=== PATIENT | male | born 1950 | race Caucasian/White ===

== ENCOUNTER 2016-04-16 09:47 | Emergency (ER) | payer OTHER, MEDICARE ==
[~2016-04-16 09:47] MED LIST: ADVAIR DISKUS 21 DSK INH; ALBUTEROL 3 ML3 ML INH; ALBUTEROL2.5 MG/3 M INH/SOL; ALENDRONATE SOD70 M2 PO; ALENDRONATE SOD70 MG PO; AQUAPHOR1 OIN TOP; ATIVAN1 MG PO; ATORVASTATIN CA80 M1 PO; AUGMENTIN 875-1 EACH PO; AZITHROMYCIN250 MG PO; AZITHROMYCIN500 MG PO; BACITRACIN ZIN120 GM TOP; BENADRYL 50 MG50 MG PO; BIAXIN FILMTAB500 MG PO; Benadryl TOP; CEFUROXIME500 MG PO; CEPHALEXIN500 M3 PO; CETIRIZINE HCL10 M2 PO; CETIRIZINE HCL10 MG PO; CHILDREN'S ASPI81 M1 PO; CLARITIN10 MG PO; CLEOCIN HCL150 MG PO; CLINDAMYCIN PHOSPH1% TOP; CLOTRIMAZOLE-745 GM TOP; COLACE100 MG PO; CORTISONE28 GM TOP; DELTASONE20 MG PO; DICLOFENAC POTA50 M1 PO; DIPHENHYDRAMINE25 M4 PO; DOLOPHINE10 MG PO; DOXEPIN HCL25 MG PO; DOXYCYCLINE HY100 M2 PO; ELIMITE5% EXT; FLU VACCINE 0.0.5 ML IM; FUROSEMIDE20 M1 PO; HYDROXYZINE HCL10 M1 PO; HYDROXYZINE HCL25 M2 PO; HYDROXYZINE HCL25 MG PO; HYDROXYZINE HCL50 M1 PO; HYDROXYZINE50 MG PO; JANUVIA 100MG100 MG PO; LASIX40 MG PO; LEVAQUIN500 MG PO; LIDODERM1 EACH TOP; LISINOPRIL20 M1 PO; LUBRIDERM DAIL177 ML TOP; MEDROL DOSEPAK1 PAC PO; MEDROL4 M2 PO; MEROPENEM1 GM IV; METFORMIN ER500 MG PO; METFORMIN HCL500 M3 PO; MIRALAX17 GM PO; MOMETASONE0.05 MG/Ac NASB; OXYCONTIN20 MG PO; PERCOCET 5-3251 EACH PO; PERMETHRIN60 GM TOP; PNEUMOVAX 0.5M0.5 ML IM; PREDNICOT20 MG PO; PREDNISONE 10MG10 M1 PO; PREDNISONE 10MG10 MG PO; PREDNISONE 20MG20 MG PO; PREDNISONE10 MG PO; PRILOSEC 20MG C20 MG PO; PRILOSEC OTC20 M1 PO; PROVENTIL HFA6.7 GM INH; ROXICODONE15 M1 PO; ROXICODONE30 M1 PO; ROXICODONE5 MG PO; SOOTHE TOP; TRIAMCINOL0.1 %/453 TD; TRIAMCINOL0.1 %/453 TOP; VALISONE TOP; VENTOLIN HFA18 GM INH; VIBRAMYCIN 100100 MG PO; VITAMIN E800 IU PO; XANAX0.5 M1 PO; XARELTO15 MG PO; XARELTO20 MG PO; ZITHROMAX 500M500 MG PO; ZOFRAN4 M1 SL; [UNRECOGNIZED DRUG - OTHER] TOP
--- NOTE | 2016-04-16 09:55 | ED GENERAL ADULT ---
History of Present Illness General Chief Complaint: General Adult Stated Complaint: ?MED RX Source: patient, old records, EMS Exam Limitations: no limitations Vital Signs & Intake/Output Vital Signs & Intake/Output Vital Signs Date Time Temp Pulse Resp B/P Pulse O2 O2 Flow FiO2 Ox Delivery Rate 04/16 1345 98.6 85 18 136/85 98 Room Air 04/16 1145 92 18 140/69 97 Room Air 04/16 1045 96 04/16 0947 96.7 97 18 143/67 99 Room Air Allergies Coded Allergies: ciprofloxacin (Severe, ANAPHYLAXIS 02/28/16) budesonide (Intermediate, SHORTNESS OF BREATH 02/28/16) formoterol (Intermediate, SHORTNESS OF BREATH 02/28/16) tiotropium (From SPIRIVA WITH HANDIHALER) (Intermediate, SHORTNESS OF BREATH 10/06) gabapentin (Mild, ITCHY 02/28/16) zolpidem (Intermediate, HALLUCINATIONS 02/28/16) Reconcile Medications Albuterol Sulfate (Ventolin Hfa) 90 MCG HFA.AER.AD ASTHMA (Reported) LAST TAKEN 02/22/16 AT 12PM Albuterol Sulfate 3 ML NEB 1 INH 4 TIMES/DAY PRN COPD (Reported) Alendronate Sodium 70 MG TABLET 1 TAB PO QW OSTEOPOROSIS (Reported) in the morning, at least 30 minutes before the first food, beverage, or medication of the day Aspirin (Children's Aspirin) 81 MG TAB.CHEW 1 TAB PO DAILY HEART HEALTH ( Reported) LAST TAKEN 02/22/16 AT 10 AM Atorvastatin Calcium 80 MG TABLET 1 TAB PO DAILY CHOLESTEROL (Reported) Diclofenac Potassium 50 MG TABLET 1 TAB PO TID PRN PAIN DOXEPIN HCL (Doxepin HCl) 25 MG CAP 1 CAP PO QPM SLEEP HELP (Reported) Emollient Combination No.92 (Lubriderm Daily Moisture) 177 ML LOTION 1 LEYLA TOP TID PRN DRY SKIN Furosemide 20 MG TABLET 20 MG PO DAILY diuretic Hydrocodone/Acetaminophen (Vicodin 5-300 MG Tablet) 5 MG-300 MG TABLET 1 TAB PO Q4-6 PRN PAIN Hydroxyzine HCl 25 MG TABLET 1 TAB PO Q6 PRN Pruritis Hydroxyzine HCl 10 MG TABLET 10 MG PO TID ITCHING Lidocaine HCl (Lidoderm Patch) 5 % PAT 1 PAT TOP DAILY PAIN CONTROL (Reported ) may wear up to 12 hours Lisinopril 20 MG TABLET 2 TAB PO DAILY HIGH BLOOD PRESSURE (Reported) Loratadine (Claritin) 10 MG TAB 1 TAB PO MORNING ALLERGIES (Reported) Lorazepam (Ativan) 1 MG TAB 1 TAB PO BID PRN TINGLING/TREMORS/INSOMNIA EIGHT TABS...[id number] Metformin Hydrochloride (Metformin HCl) 500 MG TAB 1 TAB PO BID DIABETES ( Reported) Omeprazole (Prilosec) 40 MG ECC 1 CAP PO DAILY ACID REFLUX (Reported) Oxycodone HCl (Roxicodone) 15 MG TABLET 1 TAB PO BID Back Pain Triage Note: PT BROUGHT IN BY AMBULANCE FOR HAND AND FEET TINGLING S/P TAKING GABAPENTIN AT 4A. PT ALSO C/O OF LUQ PAIN THAT IS WORSE WITH PALPATION. Triage Nurses Notes Reviewed? yes Onset: Gradual Duration: hour(s): (4) Timing: recent history Injury Environment: home Severity: moderate Severity Numbers: 6 HPI: Patient is a 65-year-old male with history of severe COPD presenting to the emergency department with chief complaint of increased pain in the arms, legs as well as left-sided abdominal pain, nausea, racing heartbeat that started after he to 2 tabs of 300 mg gabapentin. Patient reports that this is the first time he took the gabapentin. He was feeling fine prior to gabapentin. Denies any shortness of breath. Denies any increase in wheezing or coughing. Denies any fevers or chills. Denies taking anything prior travel help with symptoms. Denies any urinary symptoms. Denies any sensation of closing in his throat. (YANNICK PECK) Past History Travel History Traveled to [place] past 21 day No Medical History Any Pertinent Medical History? 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 Relation not specified for: FH: prostate cancer Hx Contributory? No (YANNICK PECK) Review of Systems Review of Systems Constitutional: Reports: no symptoms. Comments Review of systems: See HPI, All other systems negative. Constitutional, no chills fever or weight loss HEENT: No visual changes no sore throat no congestion Cardiovascular: No chest pain , orthopnea or ankle swelling Skin, no jaundice no rashes Respiratory: No dyspnea cough sputum or hemoptysis GI: no vomiting, no diarrhea : No dysuria No hematuria Muscle skeletal: no back pain, no neck pain, Neurologic: No numbness no confusion, no headache Psych: No stress anxiety or depression,. Heme/endocrine: No bruising no bleeding no polyuria or polydipsia Immunology: No splenectomy or history of AIDS (YANNICK PECK) Physical Exam Physical Exam General Appearance: well developed/nourished, no apparent distress, alert, awake , comfortable Comments: Well-developed well-nourished person in no acute distress HEENT: Pupils equally round and reactive to light and accommodation. Nose is atraumatic. External auditory canal and Tympanic membranes clear. Pharynx normal. No swelling or edema. No oral lesions. Neck: Supple, no lymphadenopathy, normal range of motion without pain or tenderness Back: Nontender Cardiovascular: Regular rate and rhythms no murmurs rubs or gallops, normal JVP Respiratory: Chest nontender. No respiratory distress.to auscultati and diffuse wheezing on bilaterally Abdomen: Soft, obese, tender to palpation in the left upper quadrant, no rebound or guarding, nondistended, no appreciable organomegaly. Normal bowel sounds. No ascites Extremity: No edema, no calf tenderness to palpation, normal and equal pulses. Neuro: Alert oriented x3 Skin: Maculopapular erythematous rash that is blanchable and noted on the upper extremities bilaterally. Nontender. Psych: Mood and affect is normal, memory and judgment is normal. Core Measures ACS in differential dx? No CVA/TIA Diagnosis: No Severe Sepsis Present: No Septic Shock Present: No (YANNICK PECK) Progress Differential Diagnoses I considered the following diagnoses in my evaluation of the patient: COPD exacerbation, medication reaction, allergic reaction, anxiety Plan of Care: Orders Procedure Date/time Status Heart Healthy Diet 04/16 D Active LACTIC ACID 04/16 1253 Complete MISTAKE 04/16 952 Active Telemetry/Clinical Quality Analyst 04/16 952 Active URINALYSIS 04/16 952 Active TROPONIN LEVEL 04/16 952 Complete LACTIC ACID 04/16 952 Complete COMPREHENSIVE METABOLIC PANEL 04/16 952 Complete CBC WITHOUT DIFFERENTIAL 04/16 952 Complete EKG 04/16 952 Active Laboratory Tests 04/16/16 1242: Lactic Acid 3.2 H 04/16/16 1013: Anion Gap 8, Estimated GFR > 60, BUN/Creatinine Ratio 10.0, Glucose 118 H, Lactic Acid 2.2 H, Calcium 9.5, Total Bilirubin 0.5, AST 48, ALT 62, Alkaline Phosphatase 117, Troponin I < 0.01, Total Protein 7.2, Albumin 3.9, Globulin 3.3 , Albumin/Globulin Ratio 1.2, CBC w Diff NO MAN DIFF REQ, RBC 3.59 L, MCV 85.2, MCH 27.8, RDW 14.0, MPV 8.8, Gran % 70.2, Lymphocytes % 18.6 L, Monocytes % 7.4 , Eosinophils % 3.3, Basophils % 0.5, Absolute Granulocytes 4.5, Absolute Lymphocytes 1.2, Absolute Monocytes 0.5, Absolute Eosinophils 0.2, Absolute Basophils 0, PUBS MCHC 32.6 L Diagnostic Imaging: Viewed by Me: Radiology Read. Discussed w/RAD: Radiology Read. CXR Impression: PATIENT: KEAGAN CRISOSTOMO PRESENT AGE: 65 PATIENT ACCOUNT NO: [id number] : 48 LOCATION: [facility] ORDERING PHYSICIAN: YANNICK MUSE SERVICE DATE: 04/16/16 EXAM TYPE: RAD - XRY-PORTABLE CHEST XRAY EXAMINATION: XR PORTABLE CHEST CLINICAL INFORMATION: Cough. Wheezing. COMPARISON: 02/28/16. CT scan of 02/20/16. TECHNIQUE: Portable view of the chest was obtained. FINDINGS: There is stable elevation of the right hemidiaphragm. There is stable mild nonspecific interstitial prominence. No focal consolidation, pulmonary edema or other acute abnormality is seen. The heart and mediastinal structures are unremarkable. IMPRESSION: No acute abnormality. Initial ED EKG: NSR Comments: 04/16/2016 10:03:06 AM and I will patient in no acute distress, cannot exclude allergic reaction to new medication. Patient was medicated with prednisone, Benadryl and Pepcid. Patient noted to stress as he is asking to watch TV and was sleeping when nurses went in to medicate patient. Patient does have diffuse wheezing on exam which is baseline for this patient. We'll obtain chest x-ray. Patient will be on the monitor. EKG is unchanged. Patient feeling much better after medication. Vital stable. Lactic acid did go up, likely related to metformin. Patient eating without difficulty. He'll follow up with PCP or return for worsening symptoms here patient nontoxic. (YANNICK PCEK) Departure Departure Time of Disposition: 1329 Disposition: HOME OR SELF CARE Condition: Stable Clinical Impression Primary Impression: Neuropathy Secondary Impressions: Medication reaction Referrals: BLAYNE NEWTON,RUDOLPH Marquez (PCP/Family) Additional Instructions: Follow-up with your primary care physician: Inflated. Take Vicodin as prescribed for pain. Return for worsening symptoms or concerns. Departure Forms: Customer Survey General Discharge Information Prescriptions: Current Visit Scripts Hydrocodone/Acetaminophen (Vicodin 5-300 MG Tablet) 1 TAB PO Q4-6 PRN PAIN #10 TAB (YANNICK PECK) PA/SENIOR CORPORATE ACCOUNTANT Co-Sign Statement Statement: ED Attending supervision documentation- x I saw and evaluated the patient. I have also reviewed all the pertinent lab results and diagnostic results. I agree with the findings and the plan of care as documented in the PA's/SENIOR CORPORATE ACCOUNTANT's documentation. [] I have reviewed the ED Record and agree with the PA's/SENIOR CORPORATE ACCOUNTANT's documentation. [] Additions or exceptions (if any) to the PAs/SENIOR CORPORATE ACCOUNTANT's note and plan are summarized below: [] (KEHINDE NEWTON,DENISE) Critical Care Note Critical Care Note Critical Care Time: non-applicable (YANNICK PECK)
--- NOTE | 2016-04-16 10:24 | RADIOLOGY REPORT ---
EXAMINATION: XR PORTABLE CHEST CLINICAL INFORMATION: Cough. Wheezing. COMPARISON: 02/28/16. CT scan of 02/20/16. TECHNIQUE: Portable view of the chest was obtained. FINDINGS: There is stable elevation of the right hemidiaphragm. There is stable mild nonspecific interstitial prominence. No focal consolidation, pulmonary edema or other acute abnormality is seen. The heart and mediastinal structures are unremarkable. IMPRESSION: No acute abnormality.
[2016-04-16 10:31] LABS: ABSOLUTE BASOPHIL COUNT 0 /CUMM (0.0-0.2); ABSOLUTE EOSINOPHIL COUNT 0.2 /CUMM (0.0-0.7); ABSOLUTE MONOCYTE COUNT 0.5 /CUMM (0.10-0.60); BASOPHIL % 0.5 % (0.0-2.0); EOSINOPHIL % 3.3 % (0-5); WHITE BLOOD CELL COUNT 6.4 /CUMM (4.8-10.8)
[2016-04-16 10:43] LABS: ABSOLUTE GRANULOCYTE CT 4.5 /CUMM (1.4-6.5); ABSOLUTE LYMPH COUNT 1.2 /CUMM (1.2-3.4); GRANULOCYTE % 70.2 % (42.2-75.2); HEMATOCRIT 30.6 % (42-52); MEAN CORPUSCULAR HGB 27.8 PG (27.0-31.0); MEAN CORPUSCULAR HGB CONC 32.6 G/DL (33.0-37.0); MEAN CORPUSCULAR VOLUME 85.2 FL (80.0-94.0); MEAN PLATELET VOLUME 8.8 FL (7.4-10.4); RED BLOOD CELL CT 3.59 /CUMM (4.70-6.10)
[2016-04-16 11:03] LABS: PLATELET COUNT 314 /CUMM (130-400)
[2016-04-16] MEDS ORDERED: VICODIN 5-3001 EACH PO (13:32)
[2016-04-16 13:45] VITALS: BP 136/85
== END 2016-04-16 13:45 ==
LOC: ERH 09:47
PROVIDERS: Physician Assistant
DX: G62.9 Polyneuropathy, unspecified (principal); T50.905A Adverse effect of unspecified drugs, medicaments and biological substances, initial encounter; R00.0 Tachycardia, unspecified; J44.9 Chronic obstructive pulmonary disease, unspecified; I10 Essential (primary) hypertension; Z87.891 Personal history of nicotine dependence
CPT/HCPCS: 1263; 93005; 93010; J7040

== ENCOUNTER 2016-05-28 01:01 | Emergency (ER) | payer OTHER, MEDICARE ==
[~2016-05-28] VITALS: Ht 182.9 cm; Wt 90.7 kg
[~2016-05-28 01:01] MED LIST changes: +VICODIN 5-3001 EACH PO
--- NOTE | 2016-05-28 01:10 | ED HAND/WRIST INJURY COMPLAINT ---
History of Present Illness General Chief Complaint: Dyspnea (COPD, CHF, Other) Stated Complaint: BIBA DIFF BREATHING Source: patient, old records, EMS Exam Limitations: no limitations Vital Signs & Intake/Output Vital Signs & Intake/Output Vital Signs Date Time Temp Pulse Resp B/P Pulse O2 O2 Flow FiO2 Ox Delivery Rate 05/28 118 98.1 88 20 118/57 95 Room Air 05/28 117 97 Room Air Allergies Coded Allergies: ciprofloxacin (Severe, ANAPHYLAXIS 02/28/16) budesonide (Intermediate, SHORTNESS OF BREATH 02/28/16) formoterol (Intermediate, SHORTNESS OF BREATH 02/28/16) tiotropium (From SPIRIVA WITH HANDIHALER) (Intermediate, SHORTNESS OF BREATH 10/06) gabapentin (Mild, ITCHY 02/28/16) zolpidem (Intermediate, HALLUCINATIONS 02/28/16) Reconcile Medications Albuterol Sulfate (Ventolin Hfa) 90 MCG HFA.AER.AD ASTHMA (Reported) LAST TAKEN 02/22/16 AT 12PM Albuterol Sulfate 3 ML NEB 1 INH 4 TIMES/DAY PRN COPD (Reported) Alendronate Sodium 70 MG TABLET 1 TAB PO QW OSTEOPOROSIS (Reported) in the morning, at least 30 minutes before the first food, beverage, or medication of the day Aspirin (Children's Aspirin) 81 MG TAB.CHEW 1 TAB PO DAILY HEART HEALTH ( Reported) LAST TAKEN 02/22/16 AT 10 AM Atorvastatin Calcium 80 MG TABLET 1 TAB PO DAILY CHOLESTEROL (Reported) Diclofenac Potassium 50 MG TABLET 1 TAB PO TID PRN PAIN DOXEPIN HCL (Doxepin HCl) 25 MG CAP 1 CAP PO QPM SLEEP HELP (Reported) Emollient Combination No.92 (Lubriderm Daily Moisture) 177 ML LOTION 1 LEYLA TOP TID PRN DRY SKIN Furosemide 20 MG TABLET 20 MG PO DAILY diuretic Hydrocodone/Acetaminophen (Vicodin 5-300 MG Tablet) 5 MG-300 MG TABLET 1 TAB PO Q4-6 PRN PAIN Hydroxyzine HCl 25 MG TABLET 1 TAB PO Q6 PRN Pruritis Hydroxyzine HCl 10 MG TABLET 10 MG PO TID ITCHING Lidocaine HCl (Lidoderm Patch) 5 % PAT 1 PAT TOP DAILY PAIN CONTROL (Reported ) may wear up to 12 hours Lisinopril 20 MG TABLET 2 TAB PO DAILY HIGH BLOOD PRESSURE (Reported) Loratadine (Claritin) 10 MG TAB 1 TAB PO MORNING ALLERGIES (Reported) Lorazepam (Ativan) 1 MG TAB 1 TAB PO BID PRN TINGLING/TREMORS/INSOMNIA EIGHT TABS...[id number] Metformin Hydrochloride (Metformin HCl) 500 MG TAB 1 TAB PO BID DIABETES ( Reported) Omeprazole (Prilosec) 40 MG ECC 1 CAP PO DAILY ACID REFLUX (Reported) Oxycodone HCl (Roxicodone) 15 MG TABLET 1 TAB PO BID Back Pain Tramadol HCl 50 MG TABLET 1 TAB PO Q6P PRN PAIN Triage Nurses Notes Reviewed? yes HPI: Patient noticed dust in his house and then he began having difficulty breathing. Patient called 911. While waiting for the ambulance to arrive he used one of his duonebs. Patient states that his breathing improved however he decided to use the ambulance to come in to the emergency room for evaluation of pain in his left hand. Patient states that his left hand has been throbbing for the past week. The pain is constant. There is no radiation. There are no aggravating or mitigating factors. Patient does not think he injured his hand and does not know why it hurts. Patient rates the pain as 10 on a can and it is unrelieved with Motrin. Past History Medical History Any Pertinent Medical History? see below for history Neurological: seizure EENT: allergies Cardiovascular: CHF, hypertension, PVD Respiratory: COPD, pulmonary embolism Gastrointestinal: GERD, GI BLEED cholelithiasis Hepatic: hepatitis C Renal: NONE Musculoskeletal: chronic back pain, disk herniation, fracture, osteomyelitis right foot Psychiatric: PTSD (s/p traumatic stress disorder) Endocrine: diabetes, diabetic neuropathy Blood Disorders: PE Cancer(s): NONE KITMAN/Reproductive: NONE History of MRSA: Yes History of VRE: No History of CDIFF: No Pneumonia Vaccine: 01/22/14 Influenza Vaccine: 08/23/15 Surgical History Surgical History: hernia repair-inguinal, right 1st-3rd toes resection Psychosocial History Who do you live with Spouse Services at Home None What is your primary language Danish Tobacco Use: Quit >30 days ago ETOH Use: occasional use Illicit Drug Use: marijuana Family History Family History, If Any: FATHER (father). Relation not specified for: FH: prostate cancer Hx Contributory? No Review of Systems Review of Systems Constitutional: Reports: no symptoms. EENTM: Reports: no symptoms. Respiratory: Reports: see HPI, short of breath. Cardiovascular: Reports: no symptoms. GI: Reports: no symptoms. Genitourinary: Reports: no symptoms. Musculoskeletal: Reports: see HPI (HAND PAIN). Skin: Reports: no symptoms. Neurological/Psychological: Reports: no symptoms. Hematologic/Endocrine: Reports: no symptoms. Immunologic/Allergic: Reports: no symptoms. All Other Systems: Reviewed and Negative Physical Exam Physical Exam General Appearance: well developed/nourished, mild distress Head: atraumatic Eyes: Bilateral: PERRL, EOMI. Ears, Nose, Throat: normal pharynx, normal ENT inspection, hearing grossly normal Neck: normal inspection, supple Cardiovascular/Respiratory: normal breath sounds, normal peripheral pulses, regular rate/rhythm, no respiratory distress Back: normal inspection Wrist Left: normal range of motion, normal inspection Wrist Right: normal range of motion, normal inspection Hand Left: swelling Hand Right: normal inspection, normal range of motion Neurologic/Tendon: normal sensation, normal motor functions, normal tendon functions Skin: intact, normal color, warm/dry Lymphatic: no anterior cervical hill Progress Differential Diagnosis: contusion, fracture, gout, sprain Plan of Care: Orders Procedure Date/time Status XRY-HAND, 3 View LEFT 05/28 0206 Active Diagnostic Imaging: Viewed by Me: Radiology Read. Discussed w/RAD: Radiology Read. Departure Departure Disposition: HOME OR SELF CARE Condition: Stable Clinical Impression Primary Impression: Hand pain, left Referrals: BLAYNE NEWTON,RUDOLPH Marquez (PCP/Family) Additional Instructions: RETURN IF SYMPTOMS WORSEN OR FOR ANY CONCERNS Departure Forms: Customer Survey General Discharge Information Prescriptions: Current Visit Scripts Tramadol HCl 1 TAB PO Q6P PRN PAIN #20 TAB
[2016-05-28] MEDS ORDERED: TRAMADOL HCL50 M1 PO (03:15)
--- NOTE | 2016-05-28 03:45 | RADIOLOGY REPORT ---
EXAMINATION: XR HAND, LEFT CLINICAL INFORMATION: Pain and swelling COMPARISON: None TECHNIQUE: AP, lateral, and oblique views of the left hand. FINDINGS: Osseous alignment is anatomic. No acute fracture is seen. There is contour deformity at the base of the fifth metacarpal, adjusting sequelae of healed old injury. No significant focal soft tissue abnormality is seen. IMPRESSION: No acute findings identified.
[2016-05-28 05:11] VITALS: BP 120/62
== END 2016-05-28 05:11 ==
LOC: ERH 01:01
DX: M79.642 Pain in left hand (principal)
CPT/HCPCS: 73130-LT

== ENCOUNTER 2016-06-04 16:21 | Emergency (ER) | payer OTHER, MEDICARE ==
[~2016-06-04] VITALS: Ht 182.9 cm; Wt 90.7 kg
[~2016-06-04 16:21] MED LIST changes: +TRAMADOL HCL50 M1 PO
--- NOTE | 2016-06-04 16:41 | ED CARDIAC/CP/PALPITATIONS ---
History of Present Illness General Chief Complaint: Chest Pain Stated Complaint: BIBA, C/P Source: patient, old records, EMS Exam Limitations: poor historian Vital Signs & Intake/Output Vital Signs & Intake/Output Vital Signs Date Time Temp Pulse Resp B/P Pulse O2 O2 Flow FiO2 Ox Delivery Rate 06/04 2042 97.7 89 20 128/74 95 06/04 1653 96 Nasal 2.0L Cannula 06/04 1624 98.2 101 20 131/63 92 Room Air Allergies Coded Allergies: ciprofloxacin (Severe, ANAPHYLAXIS 02/28/16) budesonide (Intermediate, SHORTNESS OF BREATH 02/28/16) formoterol (Intermediate, SHORTNESS OF BREATH 02/28/16) tiotropium (From SPIRIVA WITH HANDIHALER) (Intermediate, SHORTNESS OF BREATH 10/06) gabapentin (Mild, ITCHY 02/28/16) zolpidem (Intermediate, HALLUCINATIONS 02/28/16) Reconcile Medications Albuterol Sulfate (Ventolin Hfa) 90 MCG HFA.AER.AD ASTHMA (Reported) LAST TAKEN 02/22/16 AT 12PM Albuterol Sulfate 3 ML NEB 1 INH 4 TIMES/DAY PRN COPD (Reported) Alendronate Sodium 70 MG TABLET 1 TAB PO QW OSTEOPOROSIS (Reported) in the morning, at least 30 minutes before the first food, beverage, or medication of the day Aspirin (Children's Aspirin) 81 MG TAB.CHEW 1 TAB PO DAILY HEART HEALTH ( Reported) LAST TAKEN 02/22/16 AT 10 AM Atorvastatin Calcium 80 MG TABLET 1 TAB PO DAILY CHOLESTEROL (Reported) Diclofenac Potassium 50 MG TABLET 1 TAB PO TID PRN PAIN DOXEPIN HCL (Doxepin HCl) 25 MG CAP 1 CAP PO QPM SLEEP HELP (Reported) Emollient Combination No.92 (Lubriderm Daily Moisture) 177 ML LOTION 1 LEYLA TOP TID PRN DRY SKIN Furosemide 20 MG TABLET 20 MG PO DAILY diuretic Hydrocodone/Acetaminophen (Vicodin 5-300 MG Tablet) 5 MG-300 MG TABLET 1 TAB PO Q4-6 PRN PAIN Hydroxyzine HCl 25 MG TABLET 1 TAB PO Q6 PRN Pruritis Hydroxyzine HCl 10 MG TABLET 10 MG PO TID ITCHING Lidocaine HCl (Lidoderm Patch) 5 % PAT 1 PAT TOP DAILY PAIN CONTROL (Reported ) may wear up to 12 hours Lisinopril 20 MG TABLET 2 TAB PO DAILY HIGH BLOOD PRESSURE (Reported) Loratadine (Claritin) 10 MG TAB 1 TAB PO MORNING ALLERGIES (Reported) Lorazepam (Ativan) 1 MG TAB 1 TAB PO BID PRN TINGLING/TREMORS/INSOMNIA EIGHT TABS...[id number] Metformin Hydrochloride (Metformin HCl) 500 MG TAB 1 TAB PO BID DIABETES ( Reported) Omeprazole (Prilosec) 40 MG ECC 1 CAP PO DAILY ACID REFLUX (Reported) Oxycodone HCl (Roxicodone) 15 MG TABLET 1 TAB PO BID Back Pain Tramadol HCl 50 MG TABLET 1 TAB PO Q6P PRN PAIN Core Measure Meds Pre-Hospital aspirin Triage Note: PT BIBA FROM HOME FOR SUDDEN ONSET CRUSHING C/P STARTING 1 HOUR AGO. PAIN RADIATED DOWN LEFT ARM. PT GAVE HIMSELF 324MG ASA BEFORE EMS ARRIVAL. PT RECEIVED 1 SL NITRO EN ROUTE WITH NO RELIEF. PT ARRIVES TO ED SLEEPY, PLACED ON 2L NC. EKG IN PROGRESS, AWAITING EVAL. Triage Nurses Notes Reviewed? yes Onset: Just prior to arrival Duration: hour(s):, constant, continues in ED Timing: recent history Quality/Severity: severe, aching Location: central Radiation: neck, arms Activities at Onset: rest Prior Chest Pain/Card Workup: non-cardiac, pulmonary embolism Nitro Today/Relief: 0.4 mg x 1, provided by EMS, no relief Aspirin Today: 325 mg x 1, provided at home Associated Symptoms: shortness of breath, nausea/vomiting HPI: 2 hours prior to admission patient complains of central achy moderate to severe substernal chest pain radiating upwards into his left arm associated with nausea. He took 324 mg of aspirin and received one sublingual nitroglycerin with no effect on the chest pain. He also complains of headache. He denies fever chills vomiting diarrhea abdominal pain dysuria rash bleeding. (DENISE BUSBY MD) Past History Travel History Traveled to [place] past 21 day No Medical History Any Pertinent Medical History? 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 Relation not specified for: FH: prostate cancer Hx Contributory? No (DENISE BUSBY MD) Review of Systems Review of Systems Constitutional: Reports: no symptoms. EENTM: Reports: no symptoms. Respiratory: Reports: see HPI, short of breath. Cardiovascular: Reports: see HPI, chest pain. GI: Reports: see HPI, nausea. Genitourinary: Reports: no symptoms. Musculoskeletal: Reports: no symptoms. Skin: Reports: no symptoms. Neurological/Psychological: Reports: no symptoms. Hematologic/Endocrine: Reports: no symptoms. Immunologic/Allergic: Reports: no symptoms. All Other Systems: Reviewed and Negative (DENISE BUSBY MD) Physical Exam Physical Exam General Appearance: well developed/nourished, alert, awake, anxious, moderate distress, obese Head: atraumatic, normal appearance Eyes: Bilateral: normal appearance, PERRL, EOMI. Ears, Nose, Throat: normal pharynx, normal ENT inspection, hearing grossly normal Neck: normal inspection, supple, full range of motion Respiratory: chest non-tender, no respiratory distress, quiet respiration, decreased breath sounds Cardiovascular: regular rate/rhythm, normal peripheral pulses, norml femoral pulses equa Peripheral Pulses: 4+ carotid (R), 4+ carotid (L) Gastrointestinal: normal bowel sounds, soft, non-tender, no organomegaly Back: normal inspection, normal range of motion Extremities: pedal edema, right transmetatarsal Neurologic/Psych: no motor/sensory deficits, awake, alert, oriented x 3, normal mood/affect Reflexes: 2+: bicep (R), bicep (L). Skin: intact, normal color, warm/dry Lymphatic: no anterior cervical hill Core Measures ACS in differential dx? Yes ASA ordered for poss ACS? taken BAG PATCHER Severe Sepsis Present: No Septic Shock Present: No (DENISE BUSBY MD) Progress Differential Diagnosis: AMI, costochondritis, hyperkalemia, hypovolemia, pneumonia Plan of Care: Orders Procedure Date/time Status TROPONIN LEVEL 06/04 2034 Complete TROPONIN LEVEL 06/04 163 Complete MAGNESIUM 06/04 163 Complete COMPREHENSIVE METABOLIC PANEL 06/04 163 Complete CBC WITHOUT DIFFERENTIAL 06/04 163 Complete B-TYPE NATRIURETIC PEP (BNP) 06/04 163 Complete EKG 06/04 1622 Active Laboratory Tests 06/04/16 2030: Troponin I 0.05 06/04/16 1637: Anion Gap 14, Estimated GFR > 60, BUN/Creatinine Ratio 25.0, Glucose 112 H, Calcium 9.7, Magnesium 1.8, Total Bilirubin 0.6, AST 66 H, ALT 91 H, Alkaline Phosphatase 139 H, Troponin I 0.02, Mzd-G-Tsutqwkioix Pept 244 H, Total Protein 7.6, Albumin 4.2, Globulin 3.4, Albumin/Globulin Ratio 1.2, CBC w Diff NO MAN DIFF REQ, RBC 4.05 L, MCV 83.8, MCH 27.4, RDW 14.8 H, MPV 9.0, Gran % 85.5 H, Lymphocytes % 8.8 L, Monocytes % 5.1, Eosinophils % 0.3, Basophils % 0.3, Absolute Granulocytes 7.4 H, Absolute Lymphocytes 0.8 L, Absolute Monocytes 0.4, Absolute Eosinophils 0, Absolute Basophils 0, PUBS MCHC 32.7 L Diagnostic Imaging: Viewed by Me: Radiology Read. Discussed w/RAD: Radiology Read. CXR Impression: no acute abnormality, no infiltrates Initial ED EKG: normal axis, normal intervals, normal p-waves, normal QRS complex, normal sinus rhythm, no ST T wave changes Prior EKG: unchanged Rhythm Strip: normal sinus rhythm Hand-Off Endorsed To: TONO DEAN MD Endorsed Time: 1900 Pending: labs (830PM troponin) Comments: Improved after neb and reflux treatment (DENISE BUSBY MD) Comments: 06/04/2016 10:14:53 PM patient signed out to me by Dr. Busby at shift recovery agent. Repeat EKG and troponin are normal. The patient complained of a headache so aspirin has been ordered (he typically takes aspirin as opposed to Tylenol). He is also requesting a cream for a skin rash of the upper extremities. This appears to be a nonspecific dermatitis. (TONO DEAN MD) Departure Departure Condition: Stable Departure Forms: Customer Survey General Discharge Information (DENISE BUSBY MD) Departure Disposition: HOME OR SELF CARE Clinical Impression Primary Impression: Chest pain syndrome Secondary Impressions: COPD exacerbation Dermatitis Gastroesophageal reflux disease Qualifiers: Esophagitis presence: esophagitis presence not specified Qualified Code: K21.9 - Gastro-esophageal reflux disease without esophagitis Referrals: BLAYNE NEWTON,RUDOLPH Marquez (PCP/Family) Additional Instructions: Follow-up with your general medical doctor and fur buyer as soon as possible for reevaluation. Rest, no exertion or heavy lifting. Return if any concerns or sudden worsening. Prescriptions: Current Visit Scripts Hydrocortisone 1 LEYLA TOP BID PRN rash #60 ML apply to affected area(s) (DIANNE NEWTON,TONO Machuca) Critical Care Note Critical Care Note Critical Care Time: non-applicable (DENISE BUSBY MD)
[2016-06-04 16:59] LABS: ABSOLUTE BASOPHIL COUNT 0 /CUMM (0.0-0.2); ABSOLUTE EOSINOPHIL COUNT 0 /CUMM (0.0-0.7); ABSOLUTE GRANULOCYTE CT 7.4 /CUMM (1.4-6.5); ABSOLUTE LYMPH COUNT 0.8 /CUMM (1.2-3.4); ABSOLUTE MONOCYTE COUNT 0.4 /CUMM (0.10-0.60); BASOPHIL % 0.3 % (0.0-2.0); EOSINOPHIL % 0.3 % (0-5); GRANULOCYTE % 85.5 % (42.2-75.2); HEMATOCRIT 33.9 % (42-52); MEAN CORPUSCULAR HGB 27.4 PG (27.0-31.0); MEAN CORPUSCULAR HGB CONC 32.7 G/DL (33.0-37.0); MEAN CORPUSCULAR VOLUME 83.8 FL (80.0-94.0); PLATELET COUNT 262 /CUMM (130-400); RBC DISTRIBUTION WIDTH 14.8 % (11.5-14.5); RED BLOOD CELL CT 4.05 /CUMM (4.70-6.10); WHITE BLOOD CELL COUNT 8.7 /CUMM (4.8-10.8)
--- NOTE | 2016-06-04 17:06 | RADIOLOGY REPORT ---
EXAMINATION: XR PORTABLE CHEST CLINICAL INFORMATION: Chest pain COMPARISON: Chest x-ray 04/16/2016 TECHNIQUE: Portable AP portable view of the chest was obtained. 4:41 PM FINDINGS: Asymmetric elevation of right diaphragm compared to left. Lungs are clear. No pulmonary vascular congestion or pleural effusion. Heart size is normal. Cardiac and mediastinal contours are normal. IMPRESSION: No acute abnormality of the chest.
[2016-06-04] MEDS ORDERED: HYDROCORTISONE59 ML TOP (22:21)
[2016-06-04 22:54] VITALS: BP 130/85
== END 2016-06-04 22:55 ==
LOC: ERH 16:21
PROVIDERS: Emergency Medicine
DX: R07.1 Chest pain on breathing (principal); J44.1 Chronic obstructive pulmonary disease with (acute) exacerbation; K21.9 Gastro-esophageal reflux disease without esophagitis; Z87.891 Personal history of nicotine dependence; R21 Rash and other nonspecific skin eruption; R51 Headache
CPT/HCPCS: 1263; 93005; 93010; 96374; 96375; J2765

== ENCOUNTER 2016-06-21 18:03 | Inpatient (IN) | payer OTHER, MEDICARE ==
[~2016-06-21] VITALS: Ht 180.3 cm; Wt 95.3 kg
[~2016-06-21 18:03] MED LIST changes: +HYDROCORTISONE59 ML TOP
--- NOTE | 2016-06-21 18:12 | NUR ---
PT BIBA FROM HOME C/O N/V/D. PT STATES THAT N/V/D FOR THE PAST 3 DAYS. ON ARRIVAL PT STATES NAUSEA.
--- NOTE | 2016-06-21 18:22 | NUR ---
IV ACCESS ESTABLISHED IN #20
--- NOTE | 2016-06-21 18:45 | NUR ---
PT MEDICATED WITH 4MG ZOFRAN IV PER EMAR FOR NAUSEA.
--- NOTE | 2016-06-21 18:45 | NUR ---
LABS DRAWN AND SENT BY THIS RN
--- NOTE | 2016-06-21 18:46 | ED GI/GU/ABDOMINAL COMPLAINT ---
History of Present Illness General Chief Complaint: Abdominal Pain/Flank Pain Stated Complaint: N/V/D Source: patient Exam Limitations: no limitations Vital Signs & Intake/Output Vital Signs & Intake/Output Vital Signs Date Time Temp Pulse Resp B/P Pulse O2 O2 Flow FiO2 Ox Delivery Rate 06/21 1916 100 Room Air 06/22 1815 96.7 106 20 162/97 98 Room Air Allergies Coded Allergies: ciprofloxacin (Severe, ANAPHYLAXIS 02/28/16) budesonide (Intermediate, SHORTNESS OF BREATH 02/28/16) formoterol (Intermediate, SHORTNESS OF BREATH 02/28/16) tiotropium (From SPIRIVA WITH HANDIHALER) (Intermediate, SHORTNESS OF BREATH 10/06) gabapentin (Mild, ITCHY 02/28/16) zolpidem (Intermediate, HALLUCINATIONS 02/28/16) Reconcile Medications Albuterol Sulfate (Ventolin Hfa) 90 MCG HFA.AER.AD 2 PUFF INH PRN ASTHMA ( Reported) LAST TAKEN 02/22/16 AT 12PM Albuterol Sulfate 2.5 MG/3 ML (0.083 %) VIAL.NEB 1 Vial INH/MAGO 4XDAILY PRN RESPIRATORY (Reported) Alendronate Sodium 70 MG TABLET 1 TAB PO SI OSTEOPOROSIS (Reported) in the morning, at least 30 minutes before the first food, beverage, or medication of the day Aspirin (Children's Aspirin) 81 MG TAB.CHEW 1 TAB PO DAILY HEART HEALTH ( Reported) LAST TAKEN 02/22/16 AT 10 AM Atorvastatin Calcium 80 MG TABLET 1 TAB PO DAILY CHOLESTEROL (Reported) Diclofenac Potassium 50 MG TABLET 1 TAB PO TID PRN PAIN DOXEPIN HCL (Doxepin HCl) 25 MG CAP 1 CAP PO QPM SLEEP HELP (Reported) Emollient Combination No.92 (Lubriderm Daily Moisture) 177 ML LOTION 1 LEYLA TOP TID PRN DRY SKIN Furosemide 20 MG TABLET 20 MG PO DAILY diuretic Hydrocodone/Acetaminophen (Vicodin 5-300 MG Tablet) 5 MG-300 MG TABLET 1 TAB PO Q4-6 PRN PAIN Hydrocortisone 2.5 % LOTION 1 LEYLA TOP BID PRN rash apply to affected area(s) Hydroxyzine HCl 25 MG TABLET 1 TAB PO Q6 PRN Pruritis Hydroxyzine HCl 10 MG TABLET 10 MG PO TID ITCHING Lidocaine HCl (Lidoderm Patch) 5 % PAT 1 PAT TOP DAILY PAIN CONTROL (Reported ) may wear up to 12 hours Lisinopril 20 MG TABLET 2 TAB PO DAILY HIGH BLOOD PRESSURE (Reported) Loratadine (Claritin) 10 MG TAB 1 TAB PO MORNING ALLERGIES (Reported) Lorazepam (Ativan) 1 MG TAB 1 TAB PO BID PRN TINGLING/TREMORS/INSOMNIA EIGHT TABS...[id number] Metformin Hydrochloride (Metformin HCl) 500 MG TAB 1 TAB PO BID DIABETES ( Reported) Omeprazole (Prilosec) 40 MG ECC 1 CAP PO DAILY ACID REFLUX (Reported) Oxycodone HCl (Roxicodone) 15 MG TABLET 1 TAB PO BID Back Pain Tramadol HCl 50 MG TABLET 1 TAB PO Q6P PRN PAIN Triage Note: PT BIBA FROM HOME C/O N/V/D. PT STATES THAT N/V/D FOR THE PAST 3 DAYS. ON ARRIVAL PT STATES NAUSEA. Triage Nurses Notes Reviewed? yes HPI: This patient is a 66-year-old male with a past medical history including diabetes, opiate abuse, and CHF who presented to the emergency department today for evaluation of nausea, vomiting, and diarrhea times one week. The patient reported that he has been unable to keep food or drink down over the last 1 week. He has been trying to drink water. He reported 3-4 episodes of diarrhea a day. He denied any blood in the stool or vomitus. He reported associated nausea with some right upper quadrant abdominal pain which is intermittent and rated at a 6 out of 10. The pain is cramping and nonradiating. He denied any fevers, chills, chest pain, difficulty breathing, urinary burning, urgency, frequency, or blood in the urine. (TORIBIO KULKARNI,JORDEN) Past History Travel History Traveled to [place] past 21 day No Medical History Any Pertinent Medical History? 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 Relation not specified for: FH: prostate cancer Hx Contributory? No (TORIBIO KULKARNI,JORDEN) Review of Systems Review of Systems Constitutional: Reports: no symptoms. EENTM: Reports: no symptoms. Respiratory: Reports: no symptoms. Cardiovascular: Reports: no symptoms. GI: Reports: see HPI. Genitourinary: Reports: no symptoms. Musculoskeletal: Reports: no symptoms. Skin: Reports: no symptoms. Neurological/Psychological: Reports: no symptoms. All Other Systems: Reviewed and Negative (TORIBIO KULKARNI,JORDEN) Physical Exam Physical Exam Gastrointestinal: normal bowel sounds, soft, non-tender, no organomegaly, NO MASSES APPRECIATED. nO REBOUND OR GUARDING. nO PERITONEAL SIGNS. nONDISTENDED Comments: Well-developed well-nourished person in no acute distress HEENT: Normal EENT exam, moist mucous membranes PERRLA bilaterally Neck: Supple, no lymphadenopathy Back: Normal inspection Cardiovascular: Regular rate and rhythm with no murmurs, rubs, or gallops Respiratory: No respiratory distress. Breath sounds clear to auscultation bilaterally with no wheezes, rales, or rhonchi Extremity: Normal and equal pulses Neuro: Alert oriented x3, cranial nerves II through XII grossly intact. Skin: No appreciable rash on exposed skin, skin is warm and dry. Psych: Mood and affect is normal Core Measures ACS in differential dx? Yes Severe Sepsis Present: No Septic Shock Present: No (TORIBIO KULKARNI,JORDEN) Progress Differential Diagnosis: AAA, AMI, appendicitis, biliary colic, bowel obstruction , colon cancer, cholecystitis, diverticulitis, gastritis, hepatitis, ischemic bowel, inflamm bowel dis, pancreatitis, PUD/GERD, perforated viscous, ureterolithiasis, urinary retention, UTI/pyelo Diagnostic Imaging: Viewed by Me: CT Scan. Discussed w/RAD: CT Scan. Radiology Impression: PATIENT: KEAGAN CRISOSTOMO PRESENT AGE: 66 PATIENT ACCOUNT NO: [id number] : 48 LOCATION: [facility] ORDERING PHYSICIAN: JORDEN ROONEY PA-C SERVICE DATE: 06/21/16 EXAM TYPE: CAT - CT ABD & PELVIS W IV CONTRAST EXAMINATION: CT ABDOMEN AND PELVIS WITH CONTRAST CLINICAL INFORMATION: Abdominal pain, nausea, vomiting. COMPARISON : 02/20/2016. TECHNIQUE: Contiguous axial thin section helical images of the abdomen and pelvis were performed following the administration of 90 mL of intravenous Optiray 320. The data set was reformatted in the coronal and sagittal planes and reviewed on an independent workstation. DLP: 881 mGy-cm. FINDINGS: The visualized lung bases are clear. The visualized portions of the heart are unremarkable. The liver is of normal size and diffuse decreased attenuation without focal lesions nor intrahepatic biliary ductal dilation. A normal gallbladder is identified. There is no wall thickening or discernible pericholecystic fluid. The spleen, pancreas, adrenal glands are unremarkable. Both kidneys are of normal size and attenuation without hydronephrosis or nephrolithiasis. Following the administration of IV contrast, prompt symmetric nephrograms are displayed. There is no abdominal free fluid. There is neither mesenteric nor retroperitoneal lymphadenopathy. There is mild sigmoid diverticulosis. There is no diverticulitis. Otherwise, unremarkable loops of small and large bowel are identified. A normal appendix is identified. There is no pelvic free fluid. The urinary bladder is unremarkable. There is neither pelvic nor inguinal lymphadenopathy. Bone windows: Again identified is height loss and wedging to an L1 vertebral body compression fracture. IMPRESSION: No evidence for acute abdominal or pelvic inflammatory or infectious processes. Chronic L1 vertebral body compression fracture. Hepatic steatosis. Mild sigmoid diverticulosis without evidence of diverticulitis.. DICTATED BY: LUIS FOSS MD DATE/TIME DICTATED:06/21/162027 RACKER OCTAVE BOARD:NATALI DATE/TIME TRANSCRIBED:06/21/162027 CONFIDENTIAL, DO NOT COPY WITHOUT APPROPRIATE AUTHORIZATION. <Electronically signed in Other Vendor System> SIGNED BY: LUIS FOSS MD 06/21/162036 Initial ED EKG: none Comments: 06/21/2016 8:54:36 PM: I discussed this patient with Dr. Dixon who is in agreement with the plan of this patient should be admitted for a metabolic acidosis. Lactic acid of 7.2. This patient should be admitted to general medicine for gentle hydration and trend labs. 06/21/2016 9:27:06 PM: Dr. Dixon is currently the patient's bedside for face-to- face evaluation. (TORIBIO KULKARNI,JORDEN) Plan of Care: Orders Procedure Date/time Status Consistent Carbohydrate 1 06/22 B Active CBC WITHOUT DIFFERENTIAL 06/22 599 Active BASIC ELECTROLYTES PLUS BUN&CR 06/22 599 Active Saline Lock 06/22 2147 Active Misc Message 06/22 2147 Active ED Holding Orders 06/22 2147 Active Admit to inpatient 06/22 2147 Active Code Status 06/22 2147 Active FingerStick- Glucose 06/21 2145 Active Patient Data 06/21 2134 Active LACTIC ACID 06/21 2121 Active CIWA 06/21 2117 Active URINALYSIS 06/21 2117 Active RAPID VIRAL INFLUENZA A 06/22 1855 Complete CULTURE,STOOL 06/22 1855 Active C.DIFFICILE 06/22 1855 Active LIPASE 06/21 182 Complete LACTIC ACID 06/21 182 Complete ETHANOL 06/21 182 Complete DIRECT BILIRUBIN 06/21 182 Complete COMPREHENSIVE METABOLIC PANEL 06/21 182 Complete CBC WITHOUT DIFFERENTIAL 06/21 182 Complete AMYLASE 06/21 1822 Complete Intake & Output 06/21 181 Active Current Medications Sig/Mele Start time Last Medication Dose Stop Time Status Admin Dextrose/Sodium 1,000 ML Q13H 06/22 0800 UNVr Chloride (D5W-1/2 Normal Saline 1000ML) Cyanocobalamin/ 1 BAG ONCE ONE 06/21 2230 AC Thiamine/Pyridoxine 06/22 06 (Vitamin in I.V.) Sodium Chloride 1,000 ML (Normal Saline 0.9%) Pantoprazole Sodium 40 MG DAILY 06/21 2200 UNVr (Protonix) Laboratory Tests 06/21/16 2149: Lactic Acid Pending 06/21/16 1842: Anion Gap 22 H, Estimated GFR > 60, BUN/Creatinine Ratio 28.3 H, Glucose 111 H, Lactic Acid 7.2 H, Calcium 10.2, Total Bilirubin 0.5, Direct Bilirubin 0.4, AST 102 H, ALT 115 H, Alkaline Phosphatase 116, Total Protein 8.7 H, Albumin 4.7, Globulin 4.0, Albumin/Globulin Ratio 1.2, Amylase < 30 L, Lipase 41, CBC w Diff NO MAN DIFF REQ, RBC 5.03, MCV 84.7, MCH 27.6, RDW 16.0 H, MPV 9.7, Gran % 64.8, Lymphocytes % 25.3, Monocytes % 8.4, Eosinophils % 1.0, Basophils % 0.5, Absolute Granulocytes 7.7 H, Absolute Lymphocytes 3.0, Absolute Monocytes 1.0 H, Absolute Eosinophils 0.1, Absolute Basophils 0.1, PUBS MCHC 32.6 L, Serum Alcohol 149.0 Microbiology 06/22 1999 NASOPHARYN: Influenza Virus A & B Rapid Smear - COMP 06/22 1855 STOOL: Clostridium difficile Toxin A & B - ORD 06/22 1855 STOOL: Stool Culture - ORD Departure Departure Disposition: STILL A PATIENT Condition: Stable Clinical Impression Primary Impression: Lactic acidosis Secondary Impressions: Vomiting Qualifiers: Vomiting type: unspecified Vomiting Intractability: non-intractable Nausea presence: with nausea Qualified Code: R11.2 - Nausea with vomiting, unspecified Referrals: BLAYNE NEWTON,RUDOLPH Marquez (PCP/Family) Departure Forms: Customer Survey General Discharge Information Admission Note Spoke With: YUDY MERAZ MD Documentation of Exam: Documentation of any treatments & extenuating circumstances including Concerns Regarding Discharge (functional status, medication knowledge or non-compliance, living conditions, etc.) that warrant an admission rather than observation: [ This patient is a 66-year-old male with past medical history including CHF and diabetes who presented to the emergency department today for evaluation of nausea, vomiting, and diarrhea. Lactic acidosis of 7.2. Patient is currently intoxicated. White blood cell count of 11.2. Anion gap of 22. This patient should be admitted for gentle hydration, trend labs, gastroenterology consultation, follow-up blood cultures, follow up stool culture, and close monitoring. Given this patient's significant past medical history, premature discharge could prove medically harmful.] (TORIBIO KULKARNI,JORDEN) PA/MACHINE PULLER AND LASTER Co-Sign Statement Statement: ED Attending supervision documentation- [X] I saw and evaluated the patient. I have also reviewed all the pertinent lab results and diagnostic results. I agree with the findings and the plan of care as documented in the PA's/MACHINE PULLER AND LASTER's documentation. [] I have reviewed the ED Record and agree with the PA's/MACHINE PULLER AND LASTER's documentation. [] Additions or exceptions (if any) to the PAs/MACHINE PULLER AND LASTER's note and plan are summarized below: [] (DIANNE NEWTON,TONO Machuca)
[2016-06-21 19:12] LABS: ABSOLUTE BASOPHIL COUNT 0.1 /CUMM (0.0-0.2); ABSOLUTE EOSINOPHIL COUNT 0.1 /CUMM (0.0-0.7); ABSOLUTE GRANULOCYTE CT 7.7 /CUMM (1.4-6.5); BASOPHIL % 0.5 % (0.0-2.0); GRANULOCYTE % 64.8 % (42.2-75.2); HEMATOCRIT 42.6 % (42-52); MEAN CORPUSCULAR HGB 27.6 PG (27.0-31.0); MEAN CORPUSCULAR HGB CONC 32.6 G/DL (33.0-37.0); MEAN CORPUSCULAR VOLUME 84.7 FL (80.0-94.0); MEAN PLATELET VOLUME 9.7 FL (7.4-10.4); PLATELET COUNT 328 /CUMM (130-400); RED BLOOD CELL CT 5.03 /CUMM (4.70-6.10); WHITE BLOOD CELL COUNT 11.9 /CUMM (4.8-10.8)
--- NOTE | 2016-06-21 19:15 | NUR ---
PT HAS NS LITER #1 INFUSING AT 50ML/HR PER EMAR
--- NOTE | 2016-06-21 19:40 | NUR ---
CRITICAL TEST RESULTS [id number] KEAGAN CRISOSTOMO TESTS AND RESULTS: LACTIC 7.2 Results received and read back by: YANNICK GUILLAUME Results received date and time: 06/21/161939 The following provider was notified of the results, and read the results back: ALMAZ Lord Notified date and time: 06/21/16 at 1940
--- NOTE | 2016-06-21 19:50 | NUR ---
PT MEDICATED WITH 10MG REGLAN IV PER EMAR.
--- NOTE | 2016-06-21 20:01 | NUR ---
FLU SWAB COLLECTED AND SENT BY THIS RN, PT TO XRAY VIA STRETCHER
--- NOTE | 2016-06-21 20:15 | NUR ---
PT MEDICATED WITH 30MG TORADOL PER EMAR
--- NOTE | 2016-06-21 20:37 | CT SCAN REPORT ---
EXAMINATION: CT ABDOMEN AND PELVIS WITH CONTRAST CLINICAL INFORMATION: Abdominal pain, nausea, vomiting. COMPARISON: 02/20/2016. TECHNIQUE: Contiguous axial thin section helical images of the abdomen and pelvis were performed following the administration of 90 mL of intravenous Optiray 320. The data set was reformatted in the coronal and sagittal planes and reviewed on an independent workstation. DLP: 881 mGy-cm. FINDINGS: The visualized lung bases are clear. The visualized portions of the heart are unremarkable. The liver is of normal size and diffuse decreased attenuation without focal lesions nor intrahepatic biliary ductal dilation. A normal gallbladder is identified. There is no wall thickening or discernible pericholecystic fluid. The spleen, pancreas, adrenal glands are unremarkable. Both kidneys are of normal size and attenuation without hydronephrosis or nephrolithiasis. Following the administration of IV contrast, prompt symmetric nephrograms are displayed. There is no abdominal free fluid. There is neither mesenteric nor retroperitoneal lymphadenopathy. There is mild sigmoid diverticulosis. There is no diverticulitis. Otherwise, unremarkable loops of small and large bowel are identified. A normal appendix is identified. There is no pelvic free fluid. The urinary bladder is unremarkable. There is neither pelvic nor inguinal lymphadenopathy. Bone windows: Again identified is height loss and wedging to an L1 vertebral body compression fracture. IMPRESSION: No evidence for acute abdominal or pelvic inflammatory or infectious processes. Chronic L1 vertebral body compression fracture. Hepatic steatosis. Mild sigmoid diverticulosis without evidence of diverticulitis..
--- NOTE | 2016-06-21 21:36 | History & Physical ---
[facility] – [place], [place] 06/21/166: General Information and HPI MD Statement: I have seen and personally examined KEAGAN CRISOSTOMO and documented this H&P. The patient is a 66 year old M who presented with a patient stated chief complaint of abdominal pain, diarrhea, nausea and vomiting. Source of Information: patient, old records Exam Limitations: poor historian History of Present Illness: Mr. Crisostomo is a 66 y/o M with PMHx of non-insulin dependent T2DM, hepatitis C and chronic pain syndrome who presents with abdominal pain and diarrhea x 2-3 weeks and nausea and vomiting x 1 day. History is provided by patient himself who is a poor historian with multiple discrepancies in his recollection of events. Patient describes the abdominal pain as burning, located on the right side of his stomach without radiation and not associated with eating. He has also been experiencing watery, nonbloody diarrhea with 2-3 bowel movements per day that are green and orange in color. He has been having poor oral intake during this time and has lost some weight. Patient also endorses nausea and vomiting which started the day prior to current presentation and had the dry heaves this morning. He was meaning to come to the hospital earlier when the symptoms initially started but could not make it until now as he is the primary caregiver for his sick . He admits to drinking about two shots of vodka twice per week, with his last drink being on the day prior to current presentation. Patient reports that he has been reluctant to use the bathroom recently due to dysuria. He denies hematuria. Allergies/Medications Allergies: Coded Allergies: ciprofloxacin (Severe, ANAPHYLAXIS 02/28/16) budesonide (Intermediate, SHORTNESS OF BREATH 02/28/16) formoterol (Intermediate, SHORTNESS OF BREATH 02/28/16) tiotropium (From SPIRIVA WITH HANDIHALER) (Intermediate, SHORTNESS OF BREATH 10/06) gabapentin (Mild, ITCHY 02/28/16) zolpidem (Intermediate, HALLUCINATIONS 02/28/16) Past History Travel History Traveled to [place] past 21 day No Medical History Neurological: peripheral neuropathy, seizure, traumatic brain injury EENT: allergies Cardiovascular: CHF, hypertension, PVD Respiratory: COPD, pulmonary embolism Gastrointestinal: GERD, GI BLEED, cholelithiasis Hepatic: hepatitis C Renal: NONE Musculoskeletal: chronic back pain, disk herniation, degen joint disease, fracture (multiple compression fractures), osteoarthritis, osteomyelitis right foot Psychiatric: chronic pain disorder, PTSD Endocrine: diabetes, diabetic neuropathy Blood Disorders: PE Cancer(s): NONE 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 Relation not specified for: FH: prostate cancer Psychosocial History Where do you live? Home Who Do You Live With? spouse Services at Home: None Primary Language: Marshallese Smoking Status: Former Smoker (~10 Pack Yrs, Quit >40 Yrs Ago) ETOH Use: occasional use (Two Vodka Shots Twice Per Week) Illicit Drug Use: denies illicit drug use Living Will? no Power of Manager Medicare/HCP? no Functional Ability ADLs Independent: dressing, eating, toileting, bathing. Ambulation: cane IADLs Independent: shopping, housework, finances, food prep, telephone, transportation , medication admin. 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 Denies: chills, fever. EENTM: Reports: no symptoms. Cardiovascular: Denies: chest pain, palpitations. Respiratory: Reports: short of breath (unchanged from baseline). GI: Reports: abdominal pain, diarrhea, nausea, changes in stool, vomiting. Denies: constipation, bloody stool. Genitourinary: Reports: dysuria. Denies: hematuria. Musculoskeletal: Reports: no symptoms. Skin: Reports: no symptoms. Neurological/Psychological: Reports: headache. Hematologic/Endocrine: Reports: no symptoms. Immunologic/Allergic: Reports: no symptoms. All Other Systems: Reviewed and Negative Exam & Diagnostic Data Last 24 Hrs of Vital Signs/I&O Vital Signs Date Time Temp Pulse Resp B/P Pulse O2 O2 Flow FiO2 Ox Delivery Rate 06/22 0037 96 06/21 2318 99.4 06/21 2223 100.2 108 18 164/92 96 Room Air 06/21 1916 100 Room Air 06/21 1816 96.7 106 20 162/97 98 Room Air Intake & Output 06/22 0800 04 0000 06/21 1600 Intake Total Output Total Balance Patient 95.254 kg Weight Physical Exam General Appearance Alert, Oriented X3, No Acute Distress Skin No Rashes HEENT Atraumatic, Mucous Membr. moist/pink Neck Supple Cardiovascular Regular Rate, Normal S1, Normal S2 Lungs Clear to Auscultation Abdomen Soft, No Tenderness, Mild Diffuse Tenderness to Palpation, No Rebound, Guarding or Rigidity Extremities No Clubbing, No Cyanosis, Trace Edema on Bilateral Lower Extremities Last 24 Hrs of Labs/James: Laboratory Tests 06/21/162244: Lactic Acid 3.3 H, Urine Color YEL, Urine Clarity CLEAR, Urine pH 6.0, Ur Specific [place] 1.015, Urine Protein NEG, Urine Ketones 40 H, Urine Nitrite NEG, Urine Bilirubin NEG, Urine Urobilinogen 0.2, Ur Leukocyte Esterase NEG, Ur Microscopic EXAM NOT REQUIRED, Urine Hemoglobin NEG, Urine Glucose NEG 06/21/16 1842: Anion Gap 22 H, Estimated GFR > 60, BUN/Creatinine Ratio 28.3 H, Glucose 111 H, Lactic Acid 7.2 H, Calcium 10.2, Total Bilirubin 0.5, Direct Bilirubin 0.4, AST 102 H, ALT 115 H, Alkaline Phosphatase 116, Total Protein 8.7 H, Albumin 4.7, Globulin 4.0, Albumin/Globulin Ratio 1.2, Amylase < 30 L, Lipase 41, CBC w Diff NO MAN DIFF REQ, RBC 5.03, MCV 84.7, MCH 27.6, RDW 16.0 H, MPV 9.7, Gran % 64.8, Lymphocytes % 25.3, Monocytes % 8.4, Eosinophils % 1.0, Basophils % 0.5, Absolute Granulocytes 7.7 H, Absolute Lymphocytes 3.0, Absolute Monocytes 1.0 H, Absolute Eosinophils 0.1, Absolute Basophils 0.1, PUBS MCHC 32.6 L, Serum Alcohol 149.0 Microbiology 06/21 2245 BLOOD: Blood Culture - RECD 06/21 2244 URINE ROUT: Urine Culture - RECD 06/21 2229 BLOOD: Blood Culture - RECD 06/22 1999 NASOPHARYN: Influenza Virus A & B Rapid Smear - COMP 06/22 1855 STOOL: Clostridium difficile Toxin A & B - ORD 06/22 1855 STOOL: Stool Culture - ORD Diagnostic Data Other Results CT ABDOMEN/PELVIS W/ IV CONTRAST: No evidence for acute abdominal or pelvic inflammatory or infectious processes. Chronic L1 vertebral body compression fracture. Hepatic steatosis. Mild sigmoid diverticulosis without evidence of diverticulitis. Assessment/Plan Assessment: 66 y/o M with PMHx of non-insulin dependent T2DM, hepatitis C and chronic pain syndrome who presents with abdominal pain, diarrhea, nausea and vomiting. #Abdominal pain: Right-sided burning abdominal pain associated with diarrhea, nausea and vomiting, but not associated with eating. Symptoms are nonspecific and of unclear etiology. Differential includes gastritis, gastroparesis and gastroenteritis. Peritoneal signs absent on exam. CT Abdomen/Pelvis W/ IV Contrast negative for acute infectious or inflammatory process. Pancreatitis unlikely given no evidence on CT scan and amylase and lipase within normal limits. Symptoms have improved significantly after receiving Zofran, Reglan and Protonix in the ED. * Start Protonix 40 mg IV daily with plans to switch to PO omeprazole following day. * Repeat CBC, BMP and LFT in the AM. #Lactic acidosis: Lactic acid elevated to 7.2 on admission. Likely multifactorial secondary to metformin, alcoholic ketoacidosis given elevated serum alcohol and ketonuria and volume contraction with BUN/creatinine ratio > 20. Low-grade fever, mild leukocytosis and tachycardia is concerning for possible sepsis, however, there is no obvious source of infection. * Trend lactic acid. * Gentle IVF hydration. * Hold metformin. * Stool studies sent. * BCx and UCx ordered. #Alcohol dependence: * CITX protocol to monitor for signs/symptoms of withdrawal. * IV Ativan per CITX protocol. * Give banana bag. * Start daily oral MVI, high dose thiamine 200 mg PO BID and folic acid tomorrow. #T2DM: * Hold oral hypoglycemic agents. * Accu-checks and low dose sliding scale Novolog TIDAC. #HTN: * Continue prior to admission lisinopril 40 mg PO daily. #Chronic pain syndrome: * Continue prior to admission oxycodone 15 mg PO BID and lidocaine patch. * Morphine 2 mg IV Q6H PRN for severe pain (scale 7-10). * Tramadol 50 mg PO Q6H PRN for moderate pain (scale 4-6). * Tylenol 325 mg PO Q6H PRN for mild pain (scale 1-3). #HLD: * Continue prior to admission atorvastatin 80 mg PO daily. #COPD: * Continue prior to admission albuterol inhaler QID. #Insomnia: * Continue prior to admission doxepin 25 mg PO QHS. Diet: Consistent Carbohydrate 2 DVT PPx: Lovenox and ALPs CODE: FULL As Ranked By This Provider Problem List: 1. Lactic acidosis 2. Alcohol dependence 3. Abdominal pain 4. Diarrhea 5. HTN (hypertension) 6. Non-insulin dependent type 2 diabetes mellitus 7. COPD (chronic obstructive pulmonary disease) 8. HLD (hyperlipidemia) 9. Chronic pain syndrome Core Measures/Miscellaneous Acute Coronary Syndrome ACS Diagnosis: No Cerebrovascular Accident CVA/TIA Diagnosis: No Congestive Heart Failure CHF Diagnosis: No Venous Thromboembolism VTE Risk Factors: Acute medical illness, Age > 40, Previous VTE No [facility] VTE prophylaxis d/t: No contraindications No VTE Pharm Prophylaxis d/t: No contraindications VTE Diagnosis: No VTE Type: NONE VTE Confirmed by (Test): NONE Severe Sepsis Severe Sepsis Present: No Septic Shock Septic Shock Present: No Miscellaneous Documentation Attending Case Discussed With: YUDY MERAZ MD Primary Care Physician: RUDOLPH CISNEROS MD Patient sees these Specialists N/A Level of Patient Care: General Medicine TAMMY FROST MD 06/21/16 2340: General Information and HPI Allergies/Medications Home Med list Albuterol Sulfate (Ventolin Hfa) 90 MCG HFA.AER.AD 2 PUFF INH PRN ASTHMA ( Reported) LAST TAKEN 02/22/16 AT 12PM Albuterol Sulfate 2.5 MG/3 ML (0.083 %) VIAL.NEB 1 Vial INH/MAGO 4XDAILY PRN RESPIRATORY (Reported) Alendronate Sodium 70 MG TABLET 1 TAB PO SI OSTEOPOROSIS (Reported) HOLD in hospital: severe GERD in the morning, at least 30 minutes before the first food, beverage, or medication of the day Aspirin (Children's Aspirin) 81 MG TAB.CHEW 1 TAB PO DAILY HEART HEALTH ( Reported) LAST TAKEN 02/22/16 AT 10 AM Atorvastatin Calcium 80 MG TABLET 1 TAB PO DAILY CHOLESTEROL (Reported) Diclofenac Potassium 50 MG TABLET 1 TAB PO TID PRN PAIN DOXEPIN HCL (Doxepin HCl) 25 MG CAP 1 CAP PO QPM SLEEP HELP (Reported) Emollient Combination No.92 (Lubriderm Daily Moisture) 177 ML LOTION 1 LEYLA TOP TID PRN DRY SKIN Furosemide 20 MG TABLET 20 MG PO DAILY diuretic Reason to Stop at ADM: dehydration Hydroxyzine HCl 25 MG TABLET 1 TAB PO Q6 PRN Pruritis Lidocaine HCl (Lidoderm Patch) 5 % PAT 1 PAT TOP DAILY PAIN CONTROL (Reported ) may wear up to 12 hours Lisinopril 20 MG TABLET 2 TAB PO DAILY HIGH BLOOD PRESSURE (Reported) Metformin HCl 500 MG TABLET 1 TAB PO BID Diabetes (Reported) Reason to Stop at ADM: lactic acidosis Omeprazole Magnesium (Prilosec Otc) 20 MG TABLET.DR 40 MG PO DAILY ACID REFLUX (Reported) Reason to Stop at ADM: change to IV Oxycodone HCl (Roxicodone) 15 MG TABLET 1 TAB PO BID Back Pain Resident Review Statement Resident Statement: examined this patient, discussed with technical support internship, agreed with technical support internship, discussed with family, reviewed EMR data (avail), discussed with nursing , reviewed images, amended to note Other Findings: 66 yo male with pmh of HTN, HLD, DM on metformin, COPD not on home oxygen, Hx of PE (not on anticoagulation), PVD, chronic back pain, PTSD/anxiety came from home due to abdominal pain, diahrrea for 2-3 weeks with acute onset nausea & vomiting for 1 day. He c/o burning abdomen pain on RUQ/middle of abdomen. His oral intake was significantly decreased, but he continued po metformin. He had watery stools 2-3 BM/day without blood for 2-3 weeks. Today he came to ED as he couldn't tolerate any oral intake with nausea/vomiting (mirella, no food/blood) x 2 times. He states he drinks vodka 2 shots twice a week, and the last drink was 1DA. Otherwise, he c/o diabetic peripheral neuropathy on both feet. He has urinary burning sensation. 1. Abdominal pain: CT abdomen/pelvis unremarkable. He now c/o burning pain. Possibly related with GERD vs. alcoholic gastritis vs. diabetic gastroparesis. T max 100.2, follow blood/urine/stool culture with C.diff. continue IV PPI daily for now, zofran prn. Continue IV hydration. 2. Lactic acidosis: likely secondary to metformin, alcoholism and decreased oral intake. Now resolved after IV hydration. No source of infection. BP stable without respiratory complaints. Continue hydration, hold metformin. 3. Alcohol dependence: IV Ativan according to CIWA protocol, banana bag x 1 was given. continue po thiamine, folic acid, MV. 4. Chronic pain syndrome: continue oxycodone 15mg bid and pain pathway per protocol. 5. DM: Accuchecks with diabetic diet, hold metformin, insulin s/s. 6. HTN/HLD: c/w aspirin, atorvastatin, lisinopril. 7. Depression: c/w doxepin home dose. DVT prophylaxis: Lovenox, full code, pain pathway. KT,AARTEE 06/22/16 0441: Attending MD Review Statement Attending Statement Attending MD Statement: examined this patient, discuss w/resident/PA/FOOD AND BEVERAGE CHECKER, agreed w/resident/PA/FOOD AND BEVERAGE CHECKER, reviewed EMR data (avail), reviewed images, amended to note Attending Assessment/Plan: CC: Nausea vomiting diarrhea PMH: HTN, COPD, DM, PVD, PTSD, hep C, chronic back pain, history of PE Patient came to ER for abdominal pain, epigastric, right-sided, burning in nature, nonradiating, since one week. Associated with vomiting followed by dry heaves and retching. Patient also complains of some chronic watery stools 2-3 per day going on since last 2 weeks, nonbloody. Significant alcohol history. He has some rash on left upper extremity, which happened after accidental bug-spray , but other than itching he denies any new redness, pain, tenderness. He is all symptoms are much better after treatment in ER. Vitals: T max 100.2, HR in 100s, no tachypnea, blood pressure normal, saturating well on room air. On exam: A O 3, cooperative, no acute distress, neck supple, no JVD, no lymphadenopathy, mucosa moist, no focal neurological deficit, no dependent edema , excoriation das with minimum redness left upper extremity lateral aspect, noninfected. CVS: S1-S2, RRR. RS: Clear to auscultate bilaterally. Abdomen: Soft , NT, ND, bowel sounds present Butts's sign negative. Some excoriation das after scratching on abdomen, noninfected. Peripheral pulses perfusion normal Labs: WBC 11.9, hemoglobin 13.9, bicarbonate 20, anion gap 22, lactate 7.2, AST 102, AST 115, bilirubin 0.5, direct bilirubin 0.4, lipase 41, alcohol [address] abdomen and pelvis: 1. No evidence for acute abdominal or pelvic inflammatory or infectious processes. 2. Chronic L1 vertebral body compression fracture. 3. Hepatic steatosis. 4. Mild sigmoid diverticulosis without evidence of diverticulitis. A and P #1 abdominal pain : Unclear etiology, associated with nausea, vomiting, diarrhea , stool studies has been sent from ER. Patient symptomatically better after receiving PPI, Reglan, Zofran. No tenderness guarding or rigidity, Butts's sign negative, bowel sounds normal, CT abdomen and pelvis unremarkable. Probably secondary to gastritis, ?Gastroparesis , continue IV Protonix tomorrow then change to by mouth, continue IV hydration. Repeat CBC, BEP, LFT in a.m. #2 lactic acidosis: Went up to 7.2, even though patient has mild leukocytosis, tachycardia at this time does not have any obvious source of infection. Send urine culture, blood culture. Patient does not have respiratory complaints. Probably combination of metformin, alcohol, volume contraction leading to lactic acidosis. Continue hydration, NS 100- 150 mL per hour, trend lactate, hold metformin. #3 alcohol dependence: Continue when necessary Ativan according to CIWA protocol , thiamine 200 mg twice a day, folic acid, gentle hydration. #4 continue all his home medications including nebulization, aspirin, atorvastatin, doxepin, lisinopril, tramadol from tomorrow. #5 DVT prophylaxis with Lovenox
--- NOTE | 2016-06-21 21:49 | NUR ---
PT MEDICATED WITH 20MG PRILOSEC PO PER EMAR, THIS RN CALLED PHARMACY FOR BANANA BAG
--- NOTE | 2016-06-21 21:50 | NUR ---
REPEAT LACTIC DRAWN AND SENT TO LAB BY THIS RN
--- NOTE | 2016-06-21 21:50 | NUR ---
HOUSE STAFF IN FOR EVAL
--- NOTE | 2016-06-21 22:22 | NUR ---
PT MEDICATED WITH 40MG PROTONIX PER EMAR.
--- NOTE | 2016-06-21 22:25 | NUR ---
PANCHAL TUBES REDRAWN
--- NOTE | 2016-06-21 22:45 | NUR ---
PT MEDICATED WITH 15MG ROXICODONE FOR PAIIN 10 PER EMAR
--- NOTE | 2016-06-21 22:50 | NUR ---
URINE TRIO SENT BY THIS RN, LACTIC REPEAT SENT BY THIS RN, BLOOD CULTURES COLLECTED AND SENT BY THIS RN
--- NOTE | 2016-06-21 23:25 | NUR ---
CRITICAL TEST RESULTS [id number] KEAGAN CRISOSTOMO TESTS AND RESULTS: LACTIC 3.3 Results received and read back by: YANNICK GUILLAUME Results received date and time: 06/21/16 4709 The following provider was notified of the results, and read the results back: RESIDENT Notified date and time: 06/21/16 at 6231
--- NOTE | 2016-06-21 23:35 | NUR ---
BANANA BAG HUNG INFUSING AT 125ML/HR.
--- NOTE | 2016-06-22 00:18 | NUR ---
RESPIRATORY PAGED FOR NEB TREATMENT
--- NOTE | 2016-06-22 00:29 | NUR ---
HOSPITALIST IN FOR EVAL
[2016-06-22] MEDS ORDERED: FUROSEMIDE20 M1 PO (00:35)
--- NOTE | 2016-06-22 02:22 | NUR ---
PT SLEEPING WITH RR, BILATERAL CHEST RISE AND FALL NOTED, WILL CONTINUE TO MONITOR
--- NOTE | 2016-06-22 04:42 | NUR ---
REPEAT LACTIC DRAWN AND SENT TO LAB BY THIS MST
--- NOTE | 2016-06-22 04:43 | Admission Certification ---
Admission Certification Certification Statement - As attending physician, I certify that at the time of - admission, based on clinical presentation, severity of - symptoms, need for further diagnostic testing and - therapeutic interventions, and risk of adverse outcomes - without in-hospital treatment, in my clinical assessment, - this patient requires an acute hospital stay for a minimum - of two nights or longer. I have also considered psychsocial - factors such as support system, advanced age, financial - issues, cognitive issues, and failed out-patient treatments, - past re-admission history, safety of patient, and lack of - compliance as applicable. Specific rationale supporting this admission is: Abdominal pain, vomitings and lactic acidosis
--- NOTE | 2016-06-22 05:05 | NUR ---
REPORT GIVEN TO GEN MED RN
[2016-06-22 07:07] VITALS: BP 180/80
--- NOTE | 2016-06-22 07:23 | PN- Housestaff ---
See Addendum Subjective Follow-up For: Lactic acidosis Abdominal pain Diarrhea Complaints: pain scale (0-10) (12/01) Subjective: Pt didn't sleep well overnight. His abdominal burning sensation got improved after PPI. However, he c/o 9/10 pain from chronic back pain, Lt. abdominal pain, peripheral neuropathy. Review of Systems Constitutional: Denies: chills, fever, weakness. EENTM: Reports: no symptoms. Cardiovascular: Denies: chest pain, palpitations, peripheral edema. Respiratory: Denies: cough, short of breath, sputum production, wheezing. Gastrointestinal: Reports: abdominal pain, nausea. Denies: diarrhea, vomiting. Genitourinary: Reports: no symptoms. Musculoskeletal: Reports: back pain. Skin: Reports: no symptoms. Neurological/Psychological: Reports: paresthesia. Hematologic/Endocrine: Reports: no symptoms. Immunologic/Allergic: Reports: no symptoms. Objective Last 24 Hrs of Vital Signs/I&O Vital Signs Date Time Temp Pulse Resp B/P Pulse O2 O2 Flow FiO2 Ox Delivery Rate 06/22 0707 97.1 79 20 180/80 96 Room Air 06/22 0037 96 06/21 2318 99.4 06/21 2223 100.2 108 18 164/92 96 Room Air 06/21 1916 100 Room Air 06/21 1816 96.7 106 20 162/97 98 Room Air Intake & Output 06/22 0800 06/22 0000 06/21 1600 Intake Total Output Total Balance Patient 210 lb 210 lb Weight Physical Exam General Appearance: Alert, Oriented X3, Cooperative, Mild Distress Skin: No Significant Lesion, tattoo HEENT: Atraumatic, PERRLA, EOMI Neck: Supple, No JVD, No LAD Lymphatic: Cervical nl Cardiovascular: Regular Rate, Normal S1, Normal S2, No Murmurs Lungs: Clear to Auscultation, Normal Air Movement Abdomen: Normal Bowel Sounds, Soft, LUQ tenderness+ Neurological: Normal Speech, Strength at 5/5 X4 Ext, Normal Tone, Sensation Intact, Cranial Nerves 3-12 NL Extremities: s/p Rt. metatarsal amputation Vascular: Normal Pulses, Pulses Symmetrical Current Medications: Current Medications Sig/Mele Start time Last Medication Dose Route Stop Time Status Admin Acetaminophen 325 MG Q6P PRN 06/22 0100 AC PO Albuterol Sulfate 3 ML 4 TIMES/DAY 06/21 2229 AC 06/22 INH 0037 Aspirin 81 MG DAILY 06/22 1000 AC PO Atorvastatin Calcium 80 MG 1700 06/22 1700 AC PO Cyanocobalamin/ 1 BAG ONCE ONE 06/21 2230 DC 06/21 Thiamine/Pyridoxine IV 06/22 0629 2334 Sodium Chloride 1,000 ML Dextrose/Sodium 1,000 ML Q13H 06/22 0800 CAN Chloride IV Diclofenac Sodium 50 MG TID PRN 06/21 2300 DC PO Doxepin HCl 25 MG QPM 06/22 2200 AC PO Enoxaparin Sodium 40 MG DAILY 06/22 1000 AC SC Folic Acid 1 MG DAILY 06/22 1000 AC PO Glycerin/Mineral Oil 1 LEYLA TID PRN 06/21 2300 AC TOP Hydroxyzine HCl 25 MG Q6 PRN 06/21 2300 AC PO Insulin Aspart 0 TIDAC 06/22 0800 CAN SC Insulin Aspart 0 TIDAC 06/22 0800 AC SC Insulin Human Regular 0 Q6 06/22 0600 DC SC Ketorolac 0 .STK-MED ONE 06/21 2016 DC Tromethamine .ROUTE Ketorolac 30 MG ONCE ONE 06/21 2014 DC 06/21 Tromethamine IV 06/22 2015 2015 Lidocaine 1 PAT DAILY 06/22 1000 AC EXT Lisinopril 40 MG DAILY 06/22 1000 AC PO Lorazepam 0 Q1P PRN 06/21 2230 AC IV Metoclopramide HCl 0 .STK-MED ONE 06/21 1948 DC .ROUTE Metoclopramide HCl 10 MG ONCE ONE 06/21 194 DC 06/21 IV 06/21 194 1950 Morphine Sulfate 0 .STK-MED ONE 06/22 0101 DC .ROUTE Morphine Sulfate 2 MG Q6P PRN 06/22 0100 AC 06/22 IV 0635 Multivitamins 1 TAB DAILY 06/22 1000 AC PO Omeprazole 40 MG DAILY AC 06/22 0700 AC PO Omeprazole 0 .STK-MED ONE 06/21 2147 DC PO Omeprazole 20 MG ONCE ONE 06/21 2129 DC 06/21 PO 06/21 2130 214 Ondansetron HCl 0 .STK-MED ONE 06/21 1847 DC .ROUTE Ondansetron HCl 4 MG ONCE ONE 06/21 1830 DC 06/21 IV 06/21 183 184 Oxycodone HCl 0 .STK-MED ONE 06/21 2246 DC PO Oxycodone HCl 15 MG BID 06/21 2245 AC 06/21 PO 2245 Pantoprazole Sodium 0 .STK-MED ONE 06/21 2221 DC IV Pantoprazole Sodium 40 MG DAILY 06/21 2200 DC 06/21 IV 222 Sodium Chloride 1,000 ML Q10H 06/22 0545 AC IV Sodium Chloride 1,000 ML ONCE ONE 06/21 1900 DC 06/21 IV 06/22 1459 1915 Thiamine HCl 200 MG DAILY 06/22 1000 DC PO Thiamine HCl 200 MG BID 06/22 1000 AC PO Tramadol HCl 50 MG Q6 PRN 06/22 0100 AC PO Last 24 Hrs of Lab/James Results Last 24 Hrs of Labs/Mics: Laboratory Tests 06/22/16 0700: Sodium Pending, Potassium Pending, Chloride Pending, Carbon Dioxide Pending, Anion Gap Pending, BUN Pending, Creatinine Pending, BUN/Creatinine Ratio Pending , Total Bilirubin Pending, Direct Bilirubin Pending, AST Pending, ALT Pending, Alkaline Phosphatase Pending, Total Protein Pending, Albumin Pending, CBC w Diff Pending, WBC Pending, RBC Pending, Hgb Pending, Hct Pending, MCV Pending, MCH Pending, RDW Pending, Plt Count Pending, MPV Pending, PUBS MCHC Pending 06/22/16 0437: Lactic Acid 0.9 06/22/16 0226: Lactic Acid Cancelled 06/21/162244: Lactic Acid 3.3 H, Urine Opiates Screen < 100.00, Methadone Screen 363 H, Barbiturate Screen < 60, Ur Phencyclidine Scrn < 6.00, Amphetamines Screen < 100 , U Benzodiazepines Scrn < 85, Urine Cocaine Screen < 50, Urine Cannabis Screen < 5.00, Urine Color YEL, Urine Clarity CLEAR, Urine pH 6.0, Ur Specific Moroni 1.015, Urine Protein NEG, Urine Ketones 40 H, Urine Nitrite NEG, Urine Bilirubin NEG, Urine Urobilinogen 0.2, Ur Leukocyte Esterase NEG, Ur Microscopic EXAM NOT REQUIRED, Urine Hemoglobin NEG, Urine Glucose NEG 06/21/16 1842: Anion Gap 22 H, Estimated GFR > 60, BUN/Creatinine Ratio 28.3 H, Glucose 111 H, Lactic Acid 7.2 H, Calcium 10.2, Total Bilirubin 0.5, Direct Bilirubin 0.4, AST 102 H, ALT 115 H, Alkaline Phosphatase 116, Total Protein 8.7 H, Albumin 4.7, Globulin 4.0, Albumin/Globulin Ratio 1.2, Amylase < 30 L, Lipase 41, CBC w Diff NO MAN DIFF REQ, RBC 5.03, MCV 84.7, MCH 27.6, RDW 16.0 H, MPV 9.7, Gran % 64.8, Lymphocytes % 25.3, Monocytes % 8.4, Eosinophils % 1.0, Basophils % 0.5, Absolute Granulocytes 7.7 H, Absolute Lymphocytes 3.0, Absolute Monocytes 1.0 H, Absolute Eosinophils 0.1, Absolute Basophils 0.1, PUBS MCHC 32.6 L, Serum Alcohol 149.0 Microbiology 06/21 2245 BLOOD: Blood Culture - RECD 06/21 2244 URINE ROUT: Urine Culture - RECD 06/21 2229 BLOOD: Blood Culture - RECD 06/22 1999 NASOPHARYN: Influenza Virus A & B Rapid Smear - COMP 06/22 1855 STOOL: Clostridium difficile Toxin A & B - ORD 06/22 1855 STOOL: Stool Culture - ORD Lines/Diet/Fluids Lines: peripheral lines Assessment/Plan Assessment: 66 yo male with pmh of HTN, HLD, DM on metformin, COPD not on home oxygen, Hx of PE (not on anticoagulation), PVD, chronic back pain, PTSD/anxiety came from home due to abdominal pain, diahrrea for 2-3 weeks with acute onset nausea & vomiting for 1 day. 1. Abdominal pain: Improved after IV PPI, CT abdomen/pelvis unremarkable. He now c/o Lt. sided abdominal pain with mild tenderness (he c/o Rt. abdominal pain when admitted). Possibly related with GERD vs. alcoholic gastritis vs. diabetic gastroparesis. T max 100.2, He didn't have further vomiting/diarrhea in the hospital. Follow blood/urine/stool culture with C.diff. continue IV PPI daily for now, zofran prn. Continue IV NS for hydration. 2. Lactic acidosis: likely secondary to metformin, alcoholism and decreased oral intake. Now resolved after IV hydration. No source of infection. BP stable without respiratory complaints. Continue hydration, NS 100- 150 mL per hour, hold metformin. 3. Alcohol dependence: IV Ativan according to CIWA protocol, calli bag x 1 was given. continue po thiamine, folic acid, MV. 4. Chronic pain syndrome: CTPMP & U tox were checked (methadone 363). He was on methadone maintenance program of [place] [facility], but methadone was discontinued. He had oxycodone 15mg bid / 5mg q6 for short amount of days. He's waiting to see a primary doctor in [place] for pain clinic referral. continue oxycodone 15mg bid and pain pathway per protocol. 5. DM: He didn't check BS at home reguarly. Accuchecks with diabetic diet, hold metformin, insulin s/s. 6. HTN/HLD: c/w aspirin, atorvastatin, lisinopril. 7. Depression: c/w doxepin home dose. DVT prophylaxis: Lovenox, full code, pain pathway. Problem List: 1. Abdominal pain 2. Lactic acidosis 3. Chronic back pain 4. Alcohol dependence 5. Diarrhea Pain Ratin Pain Location: Lt. sided abdominal pain, back pain, neuropathy Pain Goal: Pain 4 or less Pain Plan: oxycodone, lidocaine patch ATC tyrenol, tramadol, IV morphine per pain scale Tomorrow's Labs & Rationales: NA DVT/Prophylaxis: pharmacological Discharge Plan Stable for Discharge? No
[2016-06-22 08:22] LABS: ABSOLUTE BASOPHIL COUNT 0 /CUMM (0.0-0.2); ABSOLUTE EOSINOPHIL COUNT 0.2 /CUMM (0.0-0.7); ABSOLUTE GRANULOCYTE CT 5.6 /CUMM (1.4-6.5); ABSOLUTE LYMPH COUNT 2.2 /CUMM (1.2-3.4); ABSOLUTE MONOCYTE COUNT 0.9 /CUMM (0.10-0.60); BASOPHIL % 0.5 % (0.0-2.0); EOSINOPHIL % 2.3 % (0-5); GRANULOCYTE % 62.3 % (42.2-75.2); MEAN CORPUSCULAR HGB 27.9 PG (27.0-31.0); MEAN CORPUSCULAR HGB CONC 32.8 G/DL (33.0-37.0); MEAN CORPUSCULAR VOLUME 84.9 FL (80.0-94.0); MEAN PLATELET VOLUME 9.8 FL (7.4-10.4); PLATELET COUNT 252 /CUMM (130-400); RBC DISTRIBUTION WIDTH 15.9 % (11.5-14.5); RED BLOOD CELL CT 4.06 /CUMM (4.70-6.10)
[2016-06-22 08:59] LABS: HEMATOCRIT 34.5 % (42-52)
[2016-06-22 14:34] VITALS: BP 111/66
[2016-06-22 22:01] VITALS: BP 152/80
[2016-06-23] VITALS: BP 152/80
[2016-06-23 04:00] VITALS: BP 150/80
[2016-06-23 07:23] VITALS: BP 140/80
[2016-06-23 08:00] VITALS: BP 140/80
[2016-06-23 08:11] VITALS: BP 140/80
--- NOTE | 2016-06-23 10:44 | PN- Housestaff ---
[facility] 06/23/16 1029: Subjective Follow-up For: Lactic acidosis Abdominal pain Diarrhea Complaints: no complaints Subjective: Patient seen and examined at bedside. Sitting comfortably in a chair. Improved abdominal pain. No episodes of diarrhea overnight. Complains of chronic back pain. Denies any fevers, chills, nausea, vomiting, urinary or bowel symptoms. Review of Systems Constitutional: Reports: no symptoms. EENTM: Reports: no symptoms. Cardiovascular: Reports: no symptoms. Respiratory: Reports: no symptoms. Gastrointestinal: Reports: no symptoms. Genitourinary: Reports: no symptoms. Objective Last 24 Hrs of Vital Signs/I&O Vital Signs Date Time Temp Pulse Resp B/P Pulse O2 O2 Flow FiO2 Ox Delivery Rate 06/23 0811 78 140/80 06/23 0800 98.2 78 20 140/80 / 0723 98.2 78 20 140/80 94 / 0615 97 Room Air 06/23 0400 98.2 80 20 150/80 04/ 0000 98.3 78 18 152/80 04 2201 98.3 78 18 152/80 98 Room Air 06/22 1434 98.9 86 18 111/66 97 Room Air Intake & Output 06/23 1600 /02 0800 04/ 0000 Intake Total 1460 800 Output Total 550 400 Balance 910 400 Intake, IV 800 800 Intake, Oral 660 Output, Urine 550 400 Physical Exam General Appearance: Alert, Oriented X3, Cooperative, No Acute Distress Skin: No Rashes, No Breakdown HEENT: Atraumatic, PERRLA, EOMI Neck: Supple Lymphatic: Cervical nl Cardiovascular: Regular Rate, Normal S1, Normal S2 Lungs: Clear to Auscultation, Normal Air Movement Abdomen: Normal Bowel Sounds, No Tenderness, No Masses, distended Neurological: Normal Speech, Strength at 5/5 X4 Ext, Normal Tone Extremities: right metatarsal amputation Vascular: Normal Pulses Current Medications: Current Medications Sig/Mele Start time Last Medication Dose Route Stop Time Status Admin Acetaminophen 325 MG Q6P PRN 06/22 0100 AC PO Albuterol Sulfate 3 ML EVERY 4 HRS/AWAKE 06/23 1200 AC INH Albuterol Sulfate 3 ML 4 TIMES/DAY 06/21 2230 DC 06/23 INH 0601 Aspirin 81 MG DAILY 06/22 1000 AC 06/23 PO 0812 Atorvastatin Calcium 80 MG 1700 04/ 1700 AC 06/22 PO 1600 Doxepin HCl 25 MG QPM 06/22 2200 AC 06/22 PO 2056 Enoxaparin Sodium 40 MG DAILY 06/22 1000 AC 06/23 SC 0810 Folic Acid 1 MG DAILY 06/22 1000 AC 06/23 PO 0811 Glycerin/Mineral Oil 1 LEYLA DAILY 06/22 1000 AC 06/23 TOP 0812 Hydroxyzine HCl 25 MG Q6 PRN 06/21 2300 AC 06/23 PO 0630 Insulin Aspart 0 TIDAC 06/22 0800 AC SC Lidocaine 1 PAT DAILY 06/22 1000 AC EXT Lisinopril 40 MG DAILY 06/22 1000 AC 06/23 PO 0811 Lorazepam 0 Q1P PRN 06/21 2230 AC IV Morphine Sulfate 2 MG ONCE ONE 06/22 2245 CAN IV 06/22 2246 Morphine Sulfate 2 MG Q6P PRN 06/22 0100 AC 06/22 IV 2351 Multivitamins 1 TAB DAILY 06/22 1000 AC 06/23 PO 0811 Omeprazole 40 MG DAILY AC 06/22 0700 AC 06/23 PO 0557 Oxycodone HCl 15 MG BID 06/22 1000 AC 06/23 PO 0913 Sodium Chloride 1,000 ML Q10H 06/22 0545 AC 06/23 IV 0810 Thiamine HCl 200 MG BID 06/22 1000 AC 06/23 PO 0811 Tramadol HCl 50 MG Q6 PRN 06/22 0100 AC 06/23 PO 0811 Last 24 Hrs of Lab/James Results Last 24 Hrs of Labs/Mics: o Assessment/Plan Assessment: 66 yo male with pmh of HTN, HLD, DM on metformin, COPD not on home oxygen, Hx of PE (not on anticoagulation), PVD, chronic back pain, PTSD/anxiety came from home due to abdominal pain, diahrrea for 2-3 weeks with acute onset nausea & vomiting for 1 day. 1. Abdominal pain: Improved after IV PPI, CT abdomen/pelvis unremarkable. He now c/o Lt. sided abdominal pain with mild tenderness (he c/o Rt. abdominal pain when admitted). Possibly related with GERD vs. alcoholic gastritis vs. diabetic gastroparesis. He didn't have further vomiting/diarrhea in the hospital. -Cultures blood/urine have been negative . -C.diff. And stool cultures was canceled because the patient was not able to give a sample -Continue PO PPI daily zofran prn. -Patient tolerating a diet. IV fluids will be discontinued -Possibly DC in am 2. Lactic acidosis: Trended down to normal. Likely secondary to metformin, alcoholism and decreased oral intake. Now resolved after IV hydration. No source of infection. BP stable without respiratory complaints. -Patient tolerating a diet. IV fluids have been discontinued. -Diarrhea resolved 3. Alcohol dependence: Low CIWA is overnight. Hasn't required any when necessary Ativan IV - Continue PO Ativan according to CIWA protocol, po thiamine, folic acid, MV. 4. Chronic pain syndrome: CTPMP & U tox were checked (methadone 363). He was on methadone maintenance program of [place] [facility], but methadone was discontinued. He had oxycodone 15mg bid / 5mg q6 for short amount of days. He's waiting to see a primary doctor in [place] for pain clinic referral. continue oxycodone 15mg bid and pain pathway per protocol. 5. DM: Last 3 fingersticks 101, 101, 155.Accuchecks with diabetic diet, hold metformin, insulin s/s. 6. HTN/HLD: c/w aspirin, atorvastatin, lisinopril. 7. Depression: c/w doxepin home dose. DVT prophylaxis: Lovenox, full code, pain pathway. Problem List: 1. Diarrhea 2. Alcohol dependence 3. Chronic pain syndrome 4. Abdominal pain Pain Ratin Pain Location: Lt. sided abdominal pain, back pain, neuropathy Pain Goal: Pain 4 or less Pain Plan: oxycodone, lidocaine patch ATC tyrenol, tramadol, IV morphine per pain scale Tomorrow's Labs & Rationales: [facility]ana PARISI [facility]16 1124: Attending MD Review Statement Attending Statement Attending MD Statement: examined this patient, discuss w/resident/PA/ASL INTERPRETER, agreed w/resident/PA/ASL INTERPRETER, reviewed EMR data (avail), discussed with nursing Attending Assessment/Plan: Pt reports doing OK. no overnight issues. wants to go home. D/c home today on home meds. [facility]. Rest of the plan as per resident's note JESUS NEWTON,CRISTHIAN 06/23/162024: Addendum Addendum Patient was discharged with 15 mg oxycodone tablets to be taken 12 hourly, for his chronic pain, to be prescribed only 10 tablets today. This was done after checking [facility] [employer] by me (Cristhian Levin MD), which suggested that he got hydrocodone-acetaminophen 10 tablets on 04/16/2016; and oxycodone 5 mg 28 tablets on 03/20/2016; oxycodone 15 mg tablets on 02/22/16 with 10 tablets. Resident notified and agrees to the plan.
--- NOTE | 2016-06-23 11:52 | Patient Discharge Instructions ---
Discharge Instructions General Discharge Information You were seen/treated for: ABDOMINAL PAIN ,DEHYDRATION Special Instructions: PLEASE F/U WITH YOUR PCP WITHIN 1 WEEK OF DISCHARGE. PLEASE CONTINUE PO FLUIDS Diet Recommended Diet: Diabetic Activity Full Activity/No Limits: Yes ( TOLERATED) Acute Coronary Syndrome Inclusion Criteria At DC or during hospital stay patient has or had the following: ACS DIAGNOSIS No Discharge Core Measures Meds if any: Prescribed or Continued at Discharge Meds if any: NOT Prescribed or Continued at Discharge Congestive Heart Failure Inclusion Criteria At DC or during hospital stay patient has or had the following: CHF DIAGNOSIS No Discharge Core Measures Meds if any: Prescribed or Continued at Discharge Meds if any: NOT Prescribed or Continued at Discharge Cerebrovascular accident Inclusion Criteria At DC or during hospital stay patient has or had the following: CVA/TIA Diagnosis No Discharge Core Measures Meds if any: Prescribed or Continued at Discharge Meds if any: NOT Prescribed or Continued at Discharge Venous thromboembolism Inclusion Criteria VTE Diagnosis No VTE Type NONE VTE Confirmed by (Test) NONE Discharge Core Measures - Per Current guidelines, there needs to be overlap - treatment for the first 5 days of Warfarin therapy. - If discharged on Warfarin prior to 5 days of - overlap therapy, the patient will need to be - assessed for post discharge needs including - *Post discharge parental anticoagulation - *Warfarin and/or parental anticoagulation education - *Follow up date to check INR post discharge At least 5 days overlap therapy as Inpatient No Meds if any: Prescribed or Continued at Discharge Note: Overlap Therapy is Warfarin and Anticoagulant Meds if any: NOT Prescribed or Continued at Discharge
--- NOTE | 2016-07-12 18:45 | Discharge Summary ---
Visit Information Visit Dates Admission Date: 06/21/16 Discharge Date: 06/23/16 Hospital Course Course Attending Physician: YUDY MERAZ MD Primary Care Physician: BLAYNE NEWTON,RUDOLPH [facility] Course: 66 yo male with pmh of HTN, HLD, DM on metformin, COPD not on home oxygen, Hx of PE (not on anticoagulation), PVD, chronic back pain, PTSD/anxiety came from home due to abdominal pain, diahrrea for 2-3 weeks with acute onset nausea & vomiting for 1 day. Labs: WBC 11.9, hemoglobin 13.9, bicarbonate 20, anion gap 22, lactate 7.2, AST 102, AST 115, bilirubin 0.5, direct bilirubin 0.4, lipase 41, alcohol [address] abdomen and pelvis: 1. No evidence for acute abdominal or pelvic inflammatory or infectious processes. 2. Chronic L1 vertebral body compression fracture. 3. Hepatic steatosis. 4. Mild sigmoid diverticulosis without evidence of diverticulitis. Problem list: 1. Abdominal pain: Improved after IV PPI, CT abdomen/pelvis was unremarkable. He was hydrated with IV fluids .Patient continued to have some LLQ pain during the hospital stay. Possibly was related with GERD vs. alcoholic gastritis vs. diabetic gastroparesis. He didn't have further vomiting/diarrhea in the hospital. Cultures blood/urine did not show any growth. C.diff and stool cultures was canceled because the patient was not able to give a sample. Was continued on PO PPI daily zofran prn for nausea. He was initially NPO and diet was advanced as tolerated. IV fluids were discontinued once the patient tolerated food. He was discharged home with plan to follow up with his PCP in 1 week. 2. Lactic acidosis: Lactic acid was elevated at admission. Likely secondary to metformin, alcoholism and decreased oral intake. Metformin was held and patient was aggresively hydrated. Lactic acid normalized after IV hydration. No source of infection was identified. BP stable without respiratory complaints. 3. Alcohol dependence:: IV Ativan according to CIWA protocol, banana bag x 1 was given. continue po thiamine, folic acid, MV. Patient had low CIWA scores and did not require prn Ativan IV Continued PO Ativan according to CIWA protocol, po thiamine, folic acid, MV. 4. Chronic pain syndrome: CTPMP & U tox were checked (methadone 363). [facility] but [facility]. He had oxycodone 15mg bid / 5mg q6 for short amount of days. He's waiting to see a primary doctor in [place] for pain clinic referral. Continued on oxycodone 15mg bid and pain pathway per protocol. 5. DM: Regular Accuchecks TID , diabetic diet, hold metformin, insulin s/s. 6. HTN/HLD: c/w aspirin, atorvastatin, lisinopril. 7. Depression: c/w doxepin home dose. DVT prophylaxis: Lovenox, full code, pain pathway. Allergies: Coded Allergies: ciprofloxacin (Severe, ANAPHYLAXIS 02/28/16) budesonide (Intermediate, SHORTNESS OF BREATH 02/28/16) formoterol (Intermediate, SHORTNESS OF BREATH 02/28/16) tiotropium (From SPIRIVA WITH HANDIHALER) (Intermediate, SHORTNESS OF BREATH 10/06) gabapentin (Mild, ITCHY 02/28/16) zolpidem (Intermediate, HALLUCINATIONS 02/28/16) Disposition Summary Disposition Principal Diagnosis: Abdominal pain Additional Diagnosis: Alcohol dependence Discharge Disposition: home or self care Discharge Instructions General Discharge Information Code Status: Full Code Patient's Diet: DIABETIC DIET Patient's Activity: TOLERATED Follow-Up Instructions/Appts: PLEASE F/U WITH YOUR PCP WITHIN 1 WEEK OF DISCHARGE. PLEASE CONTINUE PO FLUIDS Medications at Discharge Discharge Medications: Continue taking these medications: Lisinopril (Lisinopril) 20 MG TABLET 2 Tablet ORAL DAILY Comments: Last Taken: 08/26/15 Time: 10AM Albuterol Sulfate (Ventolin Hfa) 90 MCG HFA.AER.AD 2 PUFF Inhale through mouth as needed for ASTHMA Comments: Last Taken:NOT GIVEN IN HOSPITAL Time: Aspirin (Children's Aspirin) 81 MG TAB.CHEW 1 Tablet ORAL DAILY Comments: Last Taken:06/23/16 Time:0800 Omeprazole Magnesium (Prilosec Otc) 20 MG TABLET.DR 40 Milligram ORAL DAILY Comments: Last Taken:06/23/16 Time:0600 Atorvastatin Calcium (Atorvastatin Calcium) 80 MG TABLET 1 Tablet ORAL DAILY Comments: Last Taken:06/22/16 Time:1600 DOXEPIN HCL (Doxepin HCl) 25 MG CAP 1 Capsule ORAL Every night Comments: Last Taken: 08/25/15 Time: 10 PM Lidocaine HCl (Lidoderm Patch) 5 % PAT 1 Patch On the skin DAILY Instructions: may wear up to 12 hours Comments: NOT GIVEN IN HOSPITAL Metformin HCl (Metformin HCl) 500 MG TABLET 1 Tablet ORAL TWICE DAILY Instructions: Reason to Stop at ADM: lactic acidosis Comments: Last Taken:NOT GIVEN IN HOSPITAL Time: Albuterol Sulfate (Albuterol Sulfate) 2.5 MG/3 ML (0.083 %) VIAL.NEB 1 Vial Inhale Solution 4XDAILY as needed for RESPIRATORY Comments: Last Taken:06/23/16 Time:1100 Alendronate Sodium (Alendronate Sodium) 70 MG TABLET 1 Tablet ORAL See Instructions Instructions: HOLD in hospital: severe GERD in the morning, at least 30 minutes before the first food, beverage, or medication of the day Comments: NOT GIVEN IN HOSPITAL Emollient Combination No.92 (Lubriderm Daily Moisture) 177 ML LOTION 1 Application On the skin THREE TIMES DAILY as needed for DRY SKIN Days = 7 Comments: Last Taken: 06/23/16 Time: 0800 Diclofenac Potassium (Diclofenac Potassium) 50 MG TABLET 1 Tablet ORAL THREE TIMES DAILY as needed for PAIN Qty = 30 Comments: Last Taken:NOT GIVEN IN HOSPITAL Time: Oxycodone HCl (Roxicodone) 15 MG TABLET 1 Tablet ORAL TWICE DAILY Qty = 10 Comments: Last Taken:06/23/16 Time:0900 Hydroxyzine HCl (Hydroxyzine HCl) 25 MG TABLET 1 Tablet ORAL EVERY SIX HOURS as needed for Pruritis Days = 5 Comments: Last Taken:06/23/16 Time:0630 Furosemide (Furosemide) 20 MG TABLET 20 Milligram ORAL DAILY Days = 30 Instructions: Reason to Stop at ADM: dehydration Comments: Last Taken:NOT GIVEN IN HOSPITAL Time: This prescription has been renewed Copies To: BLAYNE NEWTON,RUDOLPH Marquez
== END 2016-06-23 14:55 | DRG 392 ==
LOC: ENRESERVDT → ENRESERVTM → ERH 18:03 → ENPENDDIS 21:48 → 2NA 21:48 → ERHI 21:48 → 2NA 06-22 05:51
PROVIDERS: Internal Medicine; Physician Assistant; ADMIT Internal Medicine
DX: R10.9 Unspecified abdominal pain (principal); E87.2 Acidosis; R56.9 Unspecified convulsions; I11.0 Hypertensive heart disease with heart failure; E11.40 Type 2 diabetes mellitus with diabetic neuropathy, unspecified; I50.9 Heart failure, unspecified; G62.9 Polyneuropathy, unspecified; J44.9 Chronic obstructive pulmonary disease, unspecified; B18.2 Chronic viral hepatitis C; G89.4 Chronic pain syndrome; I73.9 Peripheral vascular disease, unspecified; Z86.711 Personal history of pulmonary embolism; K21.9 Gastro-esophageal reflux disease without esophagitis; M54.9 Dorsalgia, unspecified; Z87.891 Personal history of nicotine dependence; F10.20 Alcohol dependence, uncomplicated; E78.5 Hyperlipidemia, unspecified; Z79.84 Long term (current) use of oral hypoglycemic drugs; F32.9 Major depressive disorder, single episode, unspecified
CPT/HCPCS: 2NAP; ERO; 74177; 80307; 81003; 82436; 87040; 87045; 87086; 87804; 87804-59; 93005; 93010; 96374; 96375; G0480; J1650; J1885; J2405; J2765; J3490

== ENCOUNTER 2016-07-24 08:03 | Emergency (ER) | payer OTHER, MEDICARE ==
[~2016-07-24] VITALS: Ht 180.3 cm; Wt 104.3 kg
--- NOTE | 2016-07-24 08:32 | ED GENERAL ADULT ---
History of Present Illness General Chief Complaint: Fall Stated Complaint: FALL Source: patient, family, old records, EMS Exam Limitations: no limitations Vital Signs & Intake/Output Vital Signs & Intake/Output Vital Signs Date Time Temp Pulse Resp B/P B/P Pulse O2 O2 Flow FiO2 Mean Ox Delivery Rate 07/24 1034 97.0 80 20 182/83 96 Room Air 07/24 0907 96.6 07/24 0857 97 07/24 0850 96.9 76 180/90 07/24 0809 96.6 71 18 178/85 98 Room Air Allergies Coded Allergies: ciprofloxacin (Severe, ANAPHYLAXIS 02/28/16) budesonide (Intermediate, SHORTNESS OF BREATH 02/28/16) formoterol (Intermediate, SHORTNESS OF BREATH 02/28/16) tiotropium (From SPIRIVA WITH HANDIHALER) (Intermediate, SHORTNESS OF BREATH 10/06) gabapentin (Mild, ITCHY 02/28/16) zolpidem (Intermediate, HALLUCINATIONS 02/28/16) Reconcile Medications Albuterol Sulfate (Ventolin Hfa) 90 MCG HFA.AER.AD 2 PUFF INH PRN ASTHMA ( Reported) Albuterol Sulfate 2.5 MG/3 ML (0.083 %) VIAL.NEB 1 Vial INH/MAGO 4XDAILY PRN RESPIRATORY (Reported) Alendronate Sodium 70 MG TABLET 1 TAB PO SI OSTEOPOROSIS (Reported) HOLD in hospital: severe GERD in the morning, at least 30 minutes before the first food, beverage, or medication of the day Aspirin (Children's Aspirin) 81 MG TAB.CHEW 1 TAB PO DAILY HEART HEALTH ( Reported) Atorvastatin Calcium 80 MG TABLET 1 TAB PO DAILY CHOLESTEROL (Reported) Diclofenac Potassium 50 MG TABLET 1 TAB PO TID PRN PAIN DOXEPIN HCL (Doxepin HCl) 25 MG CAP 1 CAP PO QPM SLEEP HELP (Reported) Emollient Combination No.92 (Lubriderm Daily Moisture) 177 ML LOTION 1 LEYLA TOP TID PRN DRY SKIN Furosemide 20 MG TABLET 20 MG PO DAILY diuretic Reason to Stop at ADM: dehydration Hydroxyzine HCl 25 MG TABLET 1 TAB PO Q6 PRN Pruritis Lidocaine HCl (Lidoderm Patch) 5 % PAT 1 PAT TOP DAILY PAIN CONTROL (Reported ) may wear up to 12 hours Lisinopril 20 MG TABLET 2 TAB PO DAILY HIGH BLOOD PRESSURE (Reported) Metformin HCl 500 MG TABLET 1 TAB PO BID Diabetes (Reported) Reason to Stop at ADM: lactic acidosis Omeprazole Magnesium (Prilosec Otc) 20 MG TABLET. 40 MG PO DAILY ACID REFLUX (Reported) Oxycodone HCl (Roxicodone) 15 MG TABLET 1 TAB PO BID Back Pain Triage Note: [place], FROM HOME, STATES HE FELL OVER A HIS WHEELCHAIR, HIT HEAD. C/O PAIN IN HEAD, LEFT ABDOMEN. ALSO C/O WEAKNESS, TARRY STOOLS X 1 WEEK. Triage Nurses Notes Reviewed? yes Onset: Just prior to arrival Duration: day(s):, intermittent Timing: recent history Injury Environment: home Severity: mild Modifying Factors: Improves With: immobilization, rest. Worsens With: eating, movement. Associated Symptoms: back pain HPI: 1 week prior to admission patient reports change in color of stool to black and watery consistency with left lower quadrant pain described as achy and worse with palpation intermittent mild to moderate in severity with decreased appetite and nausea. Prior to admission he lost balance over his wheelchair and fell onto at striking his right forehead and lower back complaining of pain to these areas limited range of motion. He denies loss of consciousness fever chills chest pain cough shortness of breath headache dysuria rash bleeding. Past History Travel History Traveled to [place] past 21 day No Medical History Any Pertinent Medical History? see below for history Neurological: peripheral neuropathy, seizure, traumatic brain injury EENT: allergies Cardiovascular: CHF, hypertension, PVD Respiratory: COPD, pulmonary embolism Gastrointestinal: GERD, GI BLEED cholelithiasis Hepatic: hepatitis C Renal: NONE Musculoskeletal: chronic back pain, disk herniation, degen joint disease, fracture (multiple compression fractures), osteoarthritis, osteomyelitis right foot Psychiatric: chronic pain disorder, PTSD Endocrine: diabetes, diabetic neuropathy Blood Disorders: PE Cancer(s): NONE SHEET METAL FORMER/Reproductive: NONE Other Medical Hx: malaria History of MRSA: Yes History of VRE: No History of CDIFF: No Influenza Vaccine: 12/23/15 Surgical History Surgical History: hernia repair-inguinal, amputation of right great toe partial amputation of right second and third toes Psychosocial History Who do you live with Spouse Services at Home None What is your primary language Vietnamese Tobacco Use: Quit >30 days ago ETOH Use: occasional use Family History Family History, If Any: FATHER (father). Relation not specified for: FH: prostate cancer Hx Contributory? No Review of Systems Review of Systems Constitutional: Reports: see HPI, malaise. EENTM: Reports: no symptoms. Respiratory: Reports: no symptoms. Cardiovascular: Reports: no symptoms. GI: Reports: see HPI, abdominal pain, diarrhea, nausea, changes in stool, vomiting. Genitourinary: Reports: no symptoms. Musculoskeletal: Reports: see HPI, back pain. Skin: Reports: no symptoms. Neurological/Psychological: Reports: no symptoms. Hematologic/Endocrine: Reports: no symptoms. Immunologic/Allergic: Reports: no symptoms. All Other Systems: Reviewed and Negative Physical Exam Physical Exam General Appearance: well developed/nourished, alert, awake, anxious, moderate distress, obese Head: atraumatic, normal appearance Eyes: Bilateral: normal appearance, PERRL, EOMI. Ears, Nose, Throat: normal pharynx, normal ENT inspection Neck: normal inspection, supple, full range of motion, no midline tenderness Respiratory: normal breath sounds, chest non-tender, no respiratory distress, quiet respiration, lungs clear Cardiovascular: regular rate/rhythm, normal peripheral pulses, norml femoral pulses equa Peripheral Pulses: 4+ carotid (R), 4+ carotid (L) Gastrointestinal: normal bowel sounds, soft, no organomegaly, tenderness (mild left lower quadrant), healing bruise noted left lower quadrant Rectal: refused Back: normal inspection, normal range of motion Extremities: normal inspection, normal capillary refill, normal range of motion, no edema Neurologic/Psych: no motor/sensory deficits, awake, alert, oriented x 3, normal gait, normal mood/affect, fruit dryer II-XII nml as tested Reflexes: 2+: bicep (R), bicep (L). Skin: intact, normal color, warm/dry, rash (forearms) Lymphatic: no anterior cervical hill Core Measures ACS in differential dx? No CVA/TIA Diagnosis: No Severe Sepsis Present: No Septic Shock Present: No Progress Differential Diagnoses I considered the following diagnoses in my evaluation of the patient: SBO fracture GI bleed anemia Plan of Care: Orders Procedure Date/time Status LIPASE 07/24 0835 Complete COMPREHENSIVE METABOLIC PANEL 07/24 0835 Complete CBC WITHOUT DIFFERENTIAL 07/24 0835 Complete Current Medications Sig/Mele Start time Last Medication Dose Stop Time Status Admin Doxycycline Hyclate 100 MG ONCE ONE 07/24 1045 AC 07/24 (Vibramycin) 05/03 1046 1034 Laboratory Tests 07/24/16 0844: Anion Gap 11, Estimated GFR > 60, BUN/Creatinine Ratio 20.0, Glucose 115 H, Calcium 8.8, Total Bilirubin 0.9, AST 149 H, ALT 144 H, Alkaline Phosphatase 96, Total Protein 7.5, Albumin 3.9, Globulin 3.6, Albumin/Globulin Ratio 1.1, Lipase 58, CBC w Diff NO MAN DIFF REQ, RBC 4.09 L, MCV 84.6, MCH 28.3, RDW 14.4 , MPV 9.1, Gran % 68.5, Lymphocytes % 21.7, Monocytes % 8.1, Eosinophils % 1.3, Basophils % 0.4, Absolute Granulocytes 4.9, Absolute Lymphocytes 1.6, Absolute Monocytes 0.6, Absolute Eosinophils 0.1, Absolute Basophils 0, PUBS MCHC 33.4 Diagnostic Imaging: Viewed by Me: CT Scan. Discussed w/RAD: CT Scan. Radiology Impression: 1. No acute findings within the degenerated lumbar spine compared to 01/19/2015. There is chronic, severe compression deformity of the L1 vertebral body. Also, there are several old, healed left rib fractures. 2. No acute imaging abnormalities within the abdomen or pelvis compared to 06/21/2016. No evidence of small bowel obstruction. Initial ED EKG: none Departure Departure Time of Disposition: 1031 Disposition: HOME OR SELF CARE Condition: Stable Clinical Impression Primary Impression: Back pain Qualifiers: Back pain location: low back pain Chronicity: acute Back pain laterality: unspecified Sciatica presence: with sciatica Sciatica laterality: bilateral sciatica Qualified Codes: M54.42 - Lumbago with sciatica, left side; M54.41 - Lumbago with sciatica, right side Secondary Impressions: Abdominal pain Qualifiers: Abdominal location: left lower quadrant Qualified Code: R10.32 - Left lower quadrant pain Cellulitis Qualifiers: Site of cellulitis: extremity Site of cellulitis of extremity: upper extremity Laterality: unspecified laterality Qualified Code: L03.119 - Cellulitis of unspecified part of limb Fall Qualifiers: Encounter type: initial encounter Qualified Code: W19.XXXA - Unspecified fall, initial encounter Referrals: BLAYNE NEWTON,RUDOLPH Marquez (PCP/Family) Departure Forms: Customer Survey General Discharge Information Prescriptions: Current Visit Scripts Baclofen 1 TAB PO TIDPRN PRN muscle spasm/strain #30 TAB Oxycodone HCl/Acetaminophen (Percocet 5-325 MG Tablet) 1 TAB PO Q6P PRN severe pain #15 TAB Critical Care Note Critical Care Note Critical Care Time: non-applicable
[2016-07-24 08:52] LABS: ABSOLUTE BASOPHIL COUNT 0 /CUMM (0.0-0.2); ABSOLUTE EOSINOPHIL COUNT 0.1 /CUMM (0.0-0.7); ABSOLUTE GRANULOCYTE CT 4.9 /CUMM (1.4-6.5); ABSOLUTE LYMPH COUNT 1.6 /CUMM (1.2-3.4); ABSOLUTE MONOCYTE COUNT 0.6 /CUMM (0.10-0.60); BASOPHIL % 0.4 % (0.0-2.0); EOSINOPHIL % 1.3 % (0-5); GRANULOCYTE % 68.5 % (42.2-75.2); HEMATOCRIT 34.6 % (42-52); MEAN CORPUSCULAR HGB 28.3 PG (27.0-31.0); MEAN CORPUSCULAR HGB CONC 33.4 G/DL (33.0-37.0); MEAN CORPUSCULAR VOLUME 84.6 FL (80.0-94.0); MEAN PLATELET VOLUME 9.1 FL (7.4-10.4); PLATELET COUNT 244 /CUMM (130-400); RBC DISTRIBUTION WIDTH 14.4 % (11.5-14.5); RED BLOOD CELL CT 4.09 /CUMM (4.70-6.10); WHITE BLOOD CELL COUNT 7.2 /CUMM (4.8-10.8)
--- NOTE | 2016-07-24 10:22 | CT SCAN REPORT ---
EXAMINATION: CT LUMBAR SPINE WITHOUT CONTRAST CT ABDOMEN AND PELVIS WITH IV CONTRAST CLINICAL INFORMATION: 66-year-old male fell from wheelchair onto lower back. Back pain. Evaluate for fracture. Also, nausea, vomiting, diarrhea and left-sided abdominal pain. Evaluate for small bowel obstruction. COMPARISON: CT of abdomen and pelvis from 01/19/2015 and 06/21/2016. TECHNIQUE: LUMBAR SPINE: Helical non-contrast CT images were obtained through the lumbar spine and 1.25 and 2.5 mm axial reconstructions were reviewed along with sagittal and coronal MPRs. DLP was 1059 mGy-cm. ABDOMEN AND PELVIS: CT imaging of the abdomen and pelvis was performed with intravenous administration of 92 mL of Optiray 320 nonionic contrast material. DLP was 832 mGy-cm FINDINGS: LUMBAR SPINE: Chronic, severe compression fracture deformity of L1 which exhibits approximately 85% anterior height loss and there is chronic, mild retropulsion of the posterosuperior vertebral body wall into the midline spinal canal, indenting the ventral surface of the thecal sac, unchanged in appearance compared to 01/19/2015. No acute fractures within the anterior or posterior elements. At L2-L3 and L3-L4, there is mild facet arthropathy and mild disc bulge without significant narrowing of the central canal or neural foramina. At L4-L5, severe facet osteoarthritis and degenerative disc bulge are associated with 0.2 cm anterolisthesis of L4 on L5. The facet arthropathy and disc bulge produce [id number] right and moderate left foraminal stenosis. There is chronic facet osteoarthritis, disc degeneration and disc bulge at L5-S1 without fracture or malalignment at this level. There is chronic, moderate bilateral neural foraminal stenosis at L5-S1. The sacrum remains intact. There is bridging anterior ligament ossification overlying the anterior left sacroiliac joint. No presacral hematoma or focal, paraspinal soft tissue swelling. ABDOMEN AND PELVIS: No acute findings within the examined lung bases. Mild atherosclerotic calcification of coronary arteries and thoracic aorta. No pericardial or pleural effusion. Liver is diffusely hypodense relative to the spleen on these portal venous phase images, suggestive of mild steatosis. There is a stable 1.8 cm cavernous hemangioma in the region of junction of hepatic segments VII and VIII -- unchanged compared to 01/19/2015. Also, there are old, stable areas of nodular contour along the posterior surface of hepatic segment -- possible surface hemangioma. No interval development of a suspicious liver lesion or intrahepatic bile duct dilatation. Pancreas, spleen and adrenal glands are normal. Kidneys are normal in size and enhance symmetrically. No nephrolithiasis, hydronephrosis or perinephric edema. 1.3 cm simple cortical cyst arises from the medial right upper pole. The ureters and urinary bladder are unremarkable. Stomach is normal. Bowel loops are normal in caliber. Appendix is normal. There are a few colonic diverticula without diverticulitis. No ascites or pneumoperitoneum. No acute findings in the abdominal wall. Small fat-containing inguinal hernias are unchanged compared 02/19/2015. Atherosclerotic calcification of the abdominal aorta without aneurysm. No retroperitoneal hematoma. Inferior vena cava and renal veins are normal. The splenic, mesenteric and portal veins are patent. No pathologic sized lymph nodes in the abdomen or pelvis. Prostate gland is normal in size. No pelvic free fluid. There are several old, healed left lower rib fractures. Pelvic bones are intact. There is an old, healed fracture of the right inferior pubic ramus IMPRESSION: 1. No acute findings within the degenerated lumbar spine compared to 01/19/2015. There is chronic, severe compression deformity of the L1 vertebral body. Also, there are several old, healed left rib fractures. 2. No acute imaging abnormalities within the abdomen or pelvis compared to 06/21/2016. No evidence of small bowel obstruction.
[2016-07-24] MEDS ORDERED: BACLOFEN10 M1 PO (10:35)
[2016-07-24] MEDS ORDERED: PERCOCET 5-3251 EACH PO (10:35)
[2016-07-24 11:40] VITALS: BP 164/78
== END 2016-07-24 11:45 ==
LOC: ERH 08:03
PROVIDERS: Emergency Medicine
DX: M54.5 Low back pain (principal); R10.32 Left lower quadrant pain; L03.90 Cellulitis, unspecified; W19.XXXA Unspecified fall, initial encounter
CPT/HCPCS: 1263; 74177; 96365; 96366; 96375; J0131; J2405; Q9965

== ENCOUNTER 2016-08-04 23:54 | Inpatient (IN) | payer OTHER, MEDICARE ==
[~2016-08-04] VITALS: Ht 180.3 cm; Wt 74.8 kg
[~2016-08-04 23:54] MED LIST changes: +BACLOFEN10 M1 PO
--- NOTE | 2016-08-04 23:57 | NUR ---
MD AT BEDSIDE WITH EMS AWAITS ORDERS
--- NOTE | 2016-08-04 23:57 | NUR ---
PER EMS FOUND IN BED CONFUSED, PT THOUGHT HE WAS AT [facility] AND THOUGHT PEOPLE HAD HIM LOCKED IN THERE, UPON ARRIVAL ALTHOUGH WELL KNOWN TO ED STAFF PT APPEARS OFF, SKIN COOL AND SLOW TO ANSWER, DOES NOT APPEAR TO RECOGNIZE STAFF.
[2016-08-05] VITALS (10 sets, daily range): BP systolic 100–132; BP diastolic 58–68
--- NOTE | 2016-08-05 | ED AMS/SEIZURE/WEAK/DIZZY ---
History of Present Illness General Chief Complaint: Altered Mental Status Stated Complaint: ALTERED MENTAL STATUS Source: patient, old records, EMS Exam Limitations: confusion Vital Signs & Intake/Output Vital Signs & Intake/Output Vital Signs Date Time Temp Pulse Resp B/P B/P Pulse O2 O2 Flow FiO2 Mean Ox Delivery Rate 08/05 0211 96.9 78 14 101/55 98 Room Air 08/04 2359 96.9 84 18 98/54 99 Nasal 4.0L Cannula ED Intake and Output 08/05 0000 08/04 1200 Intake Total Output Total Balance Patient 165 lb Weight Allergies Coded Allergies: ciprofloxacin (Severe, ANAPHYLAXIS 02/28/16) budesonide (Intermediate, SHORTNESS OF BREATH 02/28/16) formoterol (Intermediate, SHORTNESS OF BREATH 02/28/16) tiotropium (From SPIRIVA WITH HANDIHALER) (Intermediate, SHORTNESS OF BREATH 10/06) gabapentin (Mild, ITCHY 02/28/16) zolpidem (Intermediate, HALLUCINATIONS 02/28/16) Reconcile Medications Albuterol Sulfate (Ventolin Hfa) 90 MCG HFA.AER.AD 2 PUFF INH PRN ASTHMA ( Reported) Albuterol Sulfate 2.5 MG/3 ML (0.083 %) VIAL.NEB 1 Vial INH/MAGO 4XDAILY PRN RESPIRATORY (Reported) Alendronate Sodium 70 MG TABLET 1 TAB PO SI OSTEOPOROSIS (Reported) HOLD in hospital: severe GERD in the morning, at least 30 minutes before the first food, beverage, or medication of the day Aspirin (Children's Aspirin) 81 MG TAB.CHEW 1 TAB PO DAILY HEART HEALTH ( Reported) Atorvastatin Calcium 80 MG TABLET 1 TAB PO DAILY CHOLESTEROL (Reported) Baclofen 10 MG TABLET 1 TAB PO TIDPRN PRN muscle spasm/strain Diclofenac Potassium 50 MG TABLET 1 TAB PO TID PRN PAIN DOXEPIN HCL (Doxepin HCl) 25 MG CAP 1 CAP PO QPM SLEEP HELP (Reported) Emollient Combination No.92 (Lubriderm Daily Moisture) 177 ML LOTION 1 LEYLA TOP TID PRN DRY SKIN Furosemide 20 MG TABLET 20 MG PO DAILY diuretic Reason to Stop at ADM: dehydration Hydroxyzine HCl 25 MG TABLET 1 TAB PO Q6 PRN Pruritis Lidocaine HCl (Lidoderm Patch) 5 % PAT 1 PAT TOP DAILY PAIN CONTROL (Reported ) may wear up to 12 hours Lisinopril 20 MG TABLET 2 TAB PO DAILY HIGH BLOOD PRESSURE (Reported) Metformin HCl 500 MG TABLET 1 TAB PO BID Diabetes (Reported) Reason to Stop at ADM: lactic acidosis Omeprazole Magnesium (Prilosec Otc) 20 MG TABLET.DR 40 MG PO DAILY ACID REFLUX (Reported) Oxycodone HCl (Roxicodone) 15 MG TABLET 1 TAB PO BID Back Pain Oxycodone HCl/Acetaminophen (Percocet 5-325 MG Tablet) 5 MG-325 MG TABLET 1 TAB PO Q6P PRN severe pain Triage Note: PER EMS FOUND IN BED CONFUSED, PT THOUGHT HE WAS AT [facility] AND THOUGHT PEOPLE HAD HIM LOCKED IN THERE, UPON ARRIVAL ALTHOUGH WELL KNOWN TO ED STAFF PT APPEARS OFF, SKIN COOL AND SLOW TO ANSWER, DOES NOT APPEAR TO RECOGNIZE STAFF. Triage Nurses Notes Reviewed? yes Onset: Gradual Duration: hour(s):, waxing and waning Timing: recent history Injury Environment: home Severity: moderate Modifying Factors: Improves With: rest. Associated Symptoms: increased confusion HPI: 66-year-old gentleman history of CHF and COPD presents with mental status change. Per the medics, his neighbors called because he was screaming in his home. Upon arrival, the medics found him confused. He believed that he was at shop right. He did not know the day or the year. Per the medics he seemed lethargic to them. Upon arrival he states that he has a mild headache but that he has no chest pain shortness of breath nausea vomiting or diarrhea. 08/05/16, 1:05am... upon further questioning, pt reports that he took 2 sleeping pills, but is uncertain which ones. Past History Travel History Traveled to [place] past 21 day No Medical History Any Pertinent Medical History? see below for history Neurological: peripheral neuropathy, seizure, traumatic brain injury EENT: allergies Cardiovascular: CHF, hypertension, PVD Respiratory: COPD, pulmonary embolism Gastrointestinal: GERD, GI BLEED cholelithiasis Hepatic: hepatitis C Renal: NONE Musculoskeletal: chronic back pain, disk herniation, degen joint disease, fracture (multiple compression fractures), osteoarthritis, osteomyelitis right foot Psychiatric: chronic pain disorder, PTSD Endocrine: diabetes, diabetic neuropathy Blood Disorders: PE Cancer(s): NONE HOOKER ON/Reproductive: NONE Other Medical Hx: malaria History of MRSA: Yes History of VRE: No History of CDIFF: No Surgical History Surgical History: hernia repair-inguinal, amputation of right great toe partial amputation of right second and third toes Psychosocial History Who do you live with Spouse Services at Home None What is your primary language Estonian Tobacco Use: Current Daily Use Daily Tobacco Use Amount/Type: => 5 Cigarettes daily Family History Family History, If Any: FATHER (father). Relation not specified for: FH: prostate cancer Hx Contributory? No Review of Systems Review of Systems Constitutional: Reports: no symptoms. EENTM: Reports: no symptoms. Respiratory: Reports: no symptoms. Cardiovascular: Reports: no symptoms. GI: Reports: no symptoms. Genitourinary: Reports: no symptoms. Musculoskeletal: Reports: no symptoms. Skin: Reports: no symptoms. Neurological/Psychological: Reports: no symptoms. Hematologic/Endocrine: Reports: no symptoms. Immunologic/Allergic: Reports: no symptoms. All Other Systems: Reviewed and Negative Physical Exam Physical Exam General Appearance: well developed/nourished, mild distress Head: atraumatic, normal appearance Eyes: Bilateral: normal appearance, PERRL, EOMI. Ears, Nose, Throat: normal pharynx, normal ENT inspection Neck: normal inspection, supple, full range of motion Respiratory: normal breath sounds, chest non-tender, no respiratory distress, quiet respiration, lungs clear Cardiovascular: regular rate/rhythm Gastrointestinal: normal bowel sounds, soft, non-tender Extremities: normal range of motion Neurologic/Psych: no motor/sensory deficits, lethargic., patient oriented to self and place but not time. He does not know the day or the year. He does not know the present it is. Reflexes: 1+: bicep (R), bicep (L), knee (R), knee (L). Skin: intact, normal color Core Measures ACS in differential dx? No CVA/TIA Diagnosis: No Severe Sepsis Present: No Septic Shock Present: No Progress Differential Diagnosis: alcohol intoxication, dehydration, drug intoxication, electrolyte imbalance, hypoglycemia, intracranial Hem., intracranial mass/tumor, migraine [facility]ON Plan of Care: Orders Procedure Date/time Status Nothing by Mouth 08/05 B Active Add-on Test (ER Only) 08/05 253 Active Saline Lock 08/05 248 Active Misc Message 08/05 248 Active ED Holding Orders 08/05 248 Active Admit to inpatient 08/05 248 Active Vital Signs 08/05 248 Active Code Status 05/15 0249 Active Small, Insertion/Removal/Asses 08/05 023 Active CULTURE,URINE 08/05 023 Active ARTERIAL BLOOD GAS (GEN) 08/05 0002 Complete URINE DRUG SCREEN FOR ER ONLY 08/05 2048 Complete URINALYSIS 08/05 2048 Complete TROPONIN LEVEL 08/05 2048 Complete LIPASE 08/05 2048 Complete HEPATIC FUNCTION PANEL 08/05 2048 Complete ETHANOL 08/05 2048 Complete CBC WITHOUT DIFFERENTIAL 08/05 2048 Complete BASIC METABOLIC PANEL 08/05 2048 Complete AMYLASE 08/05 2048 Complete EKG 08/05 2048 Active Current Medications Sig/Mele Start time Last Medication Dose Stop Time Status Admin Sodium Chloride 1,000 ML BOLUS ONE 08/05 244 UNVr 08/05 (Normal Saline 0.9%) 08/06 343 025 Sodium Chloride 1,000 ML BOLUS ONE 08/05 244 UNVr (Normal Saline 0.9%) 08/05 034 Laboratory Tests 08/05/16 0045: pH 7.37, pCO2 37, pO2 88, HCO3 22, ABG O2 Sat (Measured) 96.0, P-50 (Temp Corrected) Y, Carboxyhemoglobin 0 L, O2 Concentration % RA, Temperature 96.9 L , Phlebotomy Draw Site RIGHT BRACHIAL, Urine Opiates Screen < 100.00, Methadone Screen > 735 H, Barbiturate Screen < 60, Ur Phencyclidine Scrn < 6.00, Amphetamines Screen < 100, U Benzodiazepines Scrn < 85, Urine Cocaine Screen < 50, Urine Cannabis Screen 47.80, Urinalysis MOD H, Urine Color YEL, Urine Clarity CLDY H, Urine pH 5.0, Ur Specific Stuart >= 1.030, Urine Protein >=300 H, Urine Ketones TRACE H, Urine Nitrite POS H, Urine Bilirubin NEG@ICTO, Urine Urobilinogen 1.0, Ur Leukocyte Esterase TRACE H, Ur Microscopic SEDIMENT EXAMINED, Urine RBC 10-15 H, Urine WBC 3-5 H, Ur Epithelial Cells FEW, Urine Bacteria FEW H, Urine Mucus FEW, Urine Hemoglobin LARGE H, Urine Glucose NEG 08/05/16 0010: Anion Gap 20 H, Estimated GFR 14 L, BUN/Creatinine Ratio 8.4, Glucose 129 H, Calcium 9.7, Total Bilirubin 0.8, Direct Bilirubin 0.4, AST 47, ALT 99 H, Alkaline Phosphatase 94, Troponin I < 0.01, Total Protein 7.6, Albumin 4.2, Amylase < 30 L, Lipase 39, CBC w Diff NO MAN DIFF REQ, RBC 4.30 L, MCV 86.8, MCH 28.2, RDW 14.4, MPV 10.2, Gran % 71.9, Lymphocytes % 19.0 L, Monocytes % 7.9, Eosinophils % 0.9, Basophils % 0.3, Absolute Granulocytes 8.2 H, Absolute Lymphocytes 2.2, Absolute Monocytes 0.9 H, Absolute Eosinophils 0.1, Absolute Basophils 0, PUBS MCHC 32.5 L, Serum Alcohol < 10.0 Microbiology 08/05 229 URINE ROUT: Urine Culture - ORD Diagnostic Imaging: Viewed by Me: Radiology Read, CT Scan. Discussed w/RAD: Radiology Read, CT Scan. CXR Impression: no acute abnormality, no infiltrates, normal size heart, normal mediastinum Initial ED EKG: normal axis, normal intervals, normal p-waves, normal QRS complex, normal sinus rhythm Comments: PATIENT: KEAGAN CRISOSTOMO PRESENT AGE: 66 PATIENT ACCOUNT NO: [id number] : 48 LOCATION: [facility] ORDERING PHYSICIAN: VANNA LEON MD SERVICE DATE: 08/05/16 EXAM TYPE: CAT - CT HEAD WO IV CONTRAST EXAMINATION: CT HEAD WITHOUT CONTRAST CLINICAL INFORMATION: Mental status change. COMPARISON: March 31, 2012. TECHNIQUE: Contiguous axial images of the brain were obtained without IV contrast. DLP: 567 mGy-cm. FINDINGS: There are no pathologic extra-axial fluid collections. The lateral, third, fourth ventricles are nondilated and concordant with the appearance of the sulci. There is no evidence for acute intraparenchymal hemorrhage or infarct. There is neither mass nor mass effect. There is no shift of midline structures. The paranasal sinuses and mastoid air cells are clear. There are no osseous lesions. IMPRESSION: No evidence for acute intracranial injury. DICTATED BY: LUIS FOSS MD DATE/TIME DICTATED:08/05/16105 PETAL CUTTER:NATALI DATE/TIME TRANSCRIBED:08/05/16105 CONFIDENTIAL, DO NOT COPY WITHOUT APPROPRIATE AUTHORIZATION. <Electronically signed in Other Vendor System> SIGNED BY: LUIS FOSS MD 08/05/16 0117 PATIENT: KEAGAN CRISOSTOMO PRESENT AGE: 66 PATIENT ACCOUNT NO: [id number] : 48 LOCATION: [facility] ORDERING PHYSICIAN: VANNA LEON MD SERVICE DATE: 08/05/16 EXAM TYPE: CAT - CT HEAD WO IV CONTRAST EXAMINATION: CT HEAD WITHOUT CONTRAST CLINICAL INFORMATION: Mental status change. COMPARISON: March 31, 2012. TECHNIQUE: Contiguous axial images of the brain were obtained without IV contrast. DLP: 567 mGy-cm. FINDINGS: There are no pathologic extra-axial fluid collections. The lateral, third, fourth ventricles are nondilated and concordant with the appearance of the sulci. There is no evidence for acute intraparenchymal hemorrhage or infarct. There is neither mass nor mass effect. There is no shift of midline structures. The paranasal sinuses and mastoid air cells are clear. There are no osseous lesions. IMPRESSION: No evidence for acute intracranial injury. DICTATED BY: LUIS FOSS MD DATE/TIME DICTATED:08/05/16105 PETAL CUTTER:NATALI DATE/TIME TRANSCRIBED:08/05/16105 CONFIDENTIAL, DO NOT COPY WITHOUT APPROPRIATE AUTHORIZATION. <Electronically signed in Other Vendor System> SIGNED BY: LUIS FOSS MD 08/05/16 0117 Departure Departure Disposition: HOME OR SELF CARE Condition: Stable Clinical Impression Primary Impression: Renal failure Secondary Impressions: Medication reaction Referrals: RUDOLPH CISNEROS MD (PCP/Family) Departure Forms: Customer Survey General Discharge Information Admission Note Spoke With: YUDY MERAZ MD Documentation of Exam: Documentation of any treatments & extenuating circumstances including Concerns Regarding Discharge (functional status, medication knowledge or non-compliance, living conditions, etc.) that warrant an admission rather than observation: pt with new onset renal failure of uncertain etiology... pt also with increased confusion and lethargy in context of methadone in his urine drug screen. It is unclear if he is prescribed methadone. Of note, methadone is metabolized by liver, but renally cleared. Likely his mental status change is due to increased methadone metabolized. Pt stable in ED throughout stay. Pt stable for gen med.
--- NOTE | 2016-08-05 00:12 | NUR ---
LABS DRAWN AND SENT FS 152. PT SOMULENT.\ SKIN COOL, AWAITS EKG.
--- NOTE | 2016-08-05 00:24 | RADIOLOGY REPORT ---
EXAMINATION: CHEST 1 VIEW CLINICAL INFORMATION: Wheezing. COMPARISON: June 04, 2016. TECHNIQUE: An AP view of the chest is provided. FINDINGS: The cardiac silhouette is stable. The mediastinal and hilar contours are unremarkable. There are neither pleural effusions nor pneumothoraces. There are no consolidations. The osseous structures are stable. IMPRESSION: No evidence for acute disease.
[2016-08-05 00:42] LABS: ABSOLUTE BASOPHIL COUNT 0 /CUMM (0.0-0.2); ABSOLUTE EOSINOPHIL COUNT 0.1 /CUMM (0.0-0.7); ABSOLUTE GRANULOCYTE CT 8.2 /CUMM (1.4-6.5); ABSOLUTE LYMPH COUNT 2.2 /CUMM (1.2-3.4); ABSOLUTE MONOCYTE COUNT 0.9 /CUMM (0.10-0.60); BASOPHIL % 0.3 % (0.0-2.0); EOSINOPHIL % 0.9 % (0-5); GRANULOCYTE % 71.9 % (42.2-75.2); HEMATOCRIT 37.3 % (42-52); MEAN CORPUSCULAR HGB 28.2 PG (27.0-31.0); MEAN CORPUSCULAR HGB CONC 32.5 G/DL (33.0-37.0); MEAN CORPUSCULAR VOLUME 86.8 FL (80.0-94.0); MEAN PLATELET VOLUME 10.2 FL (7.4-10.4); PLATELET COUNT 272 /CUMM (130-400); RBC DISTRIBUTION WIDTH 14.4 % (11.5-14.5); WHITE BLOOD CELL COUNT 11.4 /CUMM (4.8-10.8)
--- NOTE | 2016-08-05 01:01 | NUR ---
ST CATH FOR UTOX APPROX 30 CCS THEN CATHETER DISCONTINUED.
--- NOTE | 2016-08-05 01:17 | CT SCAN REPORT ---
EXAMINATION: CT HEAD WITHOUT CONTRAST CLINICAL INFORMATION: Mental status change. COMPARISON: March 31, 2012. TECHNIQUE: Contiguous axial images of the brain were obtained without IV contrast. DLP: 567 mGy-cm. FINDINGS: There are no pathologic extra-axial fluid collections. The lateral, third, fourth ventricles are nondilated and concordant with the appearance of the sulci. There is no evidence for acute intraparenchymal hemorrhage or infarct. There is neither mass nor mass effect. There is no shift of midline structures. The paranasal sinuses and mastoid air cells are clear. There are no osseous lesions. IMPRESSION: No evidence for acute intracranial injury.
--- NOTE | 2016-08-05 02:08 | NUR ---
PT REMAINS SOMULENT. AROUSABLE BUT DOES NOT RECOGNIZE PEOPLE, AWARE HE IS IN THE HOSPITAL. BUT LITTLE ELSE FALLS ASLEEP SATS 98 ON RA.
--- NOTE | 2016-08-05 02:31 | NUR ---
MD CONSULTED ABOUT PT STATUS, PT CONDITION UNCHANGED. ?WILL ADMIT
--- NOTE | 2016-08-05 02:46 | NUR ---
LEDESMA PLACED ONLY DRAINING SMALL AMT OF URINE , REMAINS VERBALLY STATES NO BUT DOES NOT RESIST.
--- NOTE | 2016-08-05 03:15 | NUR ---
PT EVALUATED BY HOUSE STAFF
--- NOTE | 2016-08-05 03:20 | History & Physical ---
VALARIE NEWTON,[facility] [place] 08/05/16 0320: General Information and HPI MD Statement: I have seen and personally examined KEAGAN CRISOSTOMO and documented this H&P. The patient is a 66 year old M who presented with a patient stated chief complaint of altered mental status. Source of Information: patient, old records Exam Limitations: not alert/orientated, clinical condition, confusion History of Present Illness: Mr. Crisostomo is a 66 y/o M with PMHx of non-insulin dependent T2DM, PVD s/p amputation of right first through third toes, alcohol dependence and chronic pain syndrome who is brought in by ambulance with altered mental status. Patient is unable to provide any clear history therefore most of the history is obtained from ED notes. On the day of current presentation, patient was screaming at home , which prompted his neighbors to call the medics. Upon their arrival, patient was in bed and appeared confused, thinking that he was at the grocery store and that people had locked him there. He appeared lethargic and was not oriented to time. He endorsed mild headache but denied chest pain, shortness of breath, nausea, vomiting or diarrhea. Upon further questioning, he admitted to having taken two sleeping pills but he did not recall what they were. Patient lives with his but currently she is away at rehab. When examined in the ED, patient appeared confused and slow to respond. He endorsed dysuria and nocturia but denied hematuria. He stated that his last drink was a pint of vodka on the day prior to current presentation. He endorsed visual hallucinations claiming that he sees people roaming in the halls. Allergies/Medications Allergies: Coded Allergies: ciprofloxacin (Severe, ANAPHYLAXIS 02/28/16) budesonide (Intermediate, SHORTNESS OF BREATH 02/28/16) formoterol (Intermediate, SHORTNESS OF BREATH 02/28/16) tiotropium (From SPIRIVA WITH HANDIHALER) (Intermediate, SHORTNESS OF BREATH 10/06) gabapentin (Mild, ITCHY 02/28/16) zolpidem (Intermediate, HALLUCINATIONS 02/28/16) Home Med list Albuterol Sulfate (Ventolin Hfa) 90 MCG HFA.AER.AD 2 PUFF INH PRN ASTHMA ( Reported) Albuterol Sulfate 2.5 MG/3 ML (0.083 %) VIAL.NEB 1 Vial INH/MAGO 4XDAILY PRN RESPIRATORY (Reported) Alendronate Sodium 70 MG TABLET 1 TAB PO SI OSTEOPOROSIS (Reported) HOLD in hospital: severe GERD in the morning, at least 30 minutes before the first food, beverage, or medication of the day Aspirin (Children's Aspirin) 81 MG TAB.CHEW 1 TAB PO DAILY HEART HEALTH ( Reported) Atorvastatin Calcium 80 MG TABLET 1 TAB PO DAILY CHOLESTEROL (Reported) Baclofen 10 MG TABLET 1 TAB PO TIDPRN PRN muscle spasm/strain Diclofenac Potassium 50 MG TABLET 1 TAB PO TID PRN PAIN Doxepin HCl 25 MG CAPSULE 1 CAP PO QPM SLEEP HELP (Reported) Emollient Combination No.92 (Lubriderm Daily Moisture) 177 ML LOTION 1 LEYLA TOP TID PRN DRY SKIN Furosemide 20 MG TABLET 20 MG PO DAILY diuretic Reason to Stop at ADM: dehydration Hydroxyzine HCl 25 MG TABLET 1 TAB PO Q6 PRN Pruritis Lidocaine (Lidoderm) 5 % ADH..PATCH 1 PAT TOP DAILY PAIN (Reported) may wear up to 12 hours Lisinopril 20 MG TABLET 2 TAB PO DAILY BP (Reported) Metformin HCl 500 MG TABLET 1 TAB PO BID Diabetes (Reported) Reason to Stop at ADM: lactic acidosis Omeprazole Magnesium (Prilosec Otc) 20 MG TABLET.DR 40 MG PO DAILY ACID REFLUX (Reported) Oxycodone HCl (Roxicodone) 15 MG TABLET 1 TAB PO BID Back Pain Oxycodone HCl/Acetaminophen (Percocet 5-325 MG Tablet) 5 MG-325 MG TABLET 1 TAB PO Q6P PRN severe pain Past History Travel History Traveled to [place] past 21 day No Medical History Neurological: peripheral neuropathy, seizure, traumatic brain injury EENT: allergies Cardiovascular: CHF, hypertension, PVD Respiratory: COPD, pulmonary embolism Gastrointestinal: GERD, GI BLEED, cholelithiasis Hepatic: hepatitis C Renal: NONE Musculoskeletal: chronic back pain, disk herniation, degen joint disease, fracture (multiple compression fractures), osteoarthritis, osteomyelitis right foot Psychiatric: alcohol dependence, chronic pain disorder, PTSD Endocrine: diabetes, diabetic neuropathy Blood Disorders: PE Cancer(s): NONE 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 Relation not specified for: FH: prostate cancer Psychosocial History Where do you live? Home Who Do You Live With? spouse Services at Home: None Primary Language: Tuvaluan Smoking Status: Former Smoker (~10 Pack Yrs, Quit >40 Yrs Ago) ETOH Use: heavy use Living Will? no Power of Unit Tender/HCP? no Functional Ability ADLs Independent: dressing, eating, toileting, bathing. Ambulation: cane IADLs Independent: shopping, housework, finances, food prep, telephone, transportation , medication admin. 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 EENTM: Reports: no symptoms. Cardiovascular: Reports: no symptoms. Respiratory: Reports: no symptoms. GI: Reports: no symptoms. Genitourinary: Reports: dysuria, hesitation. Denies: hematuria. Musculoskeletal: Reports: no symptoms. Skin: Reports: no symptoms. Neurological/Psychological: Reports: confusion. Hematologic/Endocrine: Reports: no symptoms. Immunologic/Allergic: Reports: no symptoms. All Other Systems: Reviewed and Negative Exam & Diagnostic Data Last 24 Hrs of Vital Signs/I&O Vital Signs Date Time Temp Pulse Resp B/P B/P Pulse O2 O2 Flow FiO2 Mean Ox Delivery Rate 08/05 0354 96.9 82 20 115/58 98 Room Air 08/05 0310 110/61 08/05 0211 96.9 78 14 101/55 98 Room Air 08/04 2359 96.9 84 18 98/54 99 Nasal 4.0L Cannula Intake & Output 08/05 0800 08/05 0000 08/04 1600 Intake Total 2000 Output Total 7 Balance 1992 Intake, IV 1999 Output, Urine 7 Patient 74.843 kg Weight Physical Exam General Appearance Alert, No Acute Distress, Oriented to Person and Place, but not Time HEENT Atraumatic, Dry Mucous Membranes Neck Supple Cardiovascular Regular Rate, Normal S1, Normal S2, No Murmurs, Gallops, Rubs Lungs Clear to Auscultation Abdomen Soft, Suprapubic Discomfort, Left Costovertebral Angle Tenderness, Positive Bowel Sounds Extremities No Clubbing, No Cyanosis, No Edema, Bilateral Lower Extremities Cool to Touch but with Normal Pulses, Right Foot with Amputation of Multiple Toes Last 24 Hrs of Labs/James: Laboratory Tests 08/05/16 0345: Lactic Acid Pending 08/05/16 0045: pH 7.37, pCO2 37, pO2 88, HCO3 22, ABG O2 Sat (Measured) 96.0, P-50 (Temp Corrected) Y, Carboxyhemoglobin 0 L, O2 Concentration % RA, Temperature 96.9 L , Phlebotomy Draw Site RIGHT BRACHIAL, Urine Opiates Screen < 100.00, Methadone Screen > 735 H, Barbiturate Screen < 60, Ur Phencyclidine Scrn < 6.00, Amphetamines Screen < 100, U Benzodiazepines Scrn < 85, Urine Cocaine Screen < 50, Urine Cannabis Screen 47.80, Urinalysis MOD H, Urine Color YEL, Urine Clarity CLDY H, Urine pH 5.0, Ur Specific Ing[place] >= 1.030, Urine Protein >=300 H, Urine Ketones TRACE H, Urine Nitrite POS H, Urine Bilirubin NEG@ICTO, Urine Urobilinogen 1.0, Ur Leukocyte Esterase TRACE H, Ur Microscopic SEDIMENT EXAMINED, Urine RBC 10-15 H, Urine WBC 3-5 H, Ur Epithelial Cells FEW, Urine Bacteria FEW H, Urine Mucus FEW, Urine Hemoglobin LARGE H, Urine Glucose NEG 08/05/16 0010: Anion Gap 20 H, Estimated GFR 14 L, BUN/Creatinine Ratio 8.4, Glucose 129 H, Lactic Acid 2.6 H, Calcium 9.7, Total Bilirubin 0.8, Direct Bilirubin 0.4, AST 47, ALT 99 H, Alkaline Phosphatase 94, Troponin I < 0.01, Total Protein 7.6, Albumin 4.2, Amylase < 30 L, Lipase 39, CBC w Diff NO MAN DIFF REQ, RBC 4.30 L , MCV 86.8, MCH 28.2, RDW 14.4, MPV 10.2, Gran % 71.9, Lymphocytes % 19.0 L, Monocytes % 7.9, Eosinophils % 0.9, Basophils % 0.3, Absolute Granulocytes 8.2 H, Absolute Lymphocytes 2.2, Absolute Monocytes 0.9 H, Absolute Eosinophils 0.1 , Absolute Basophils 0, PUBS MCHC 32.5 L, Serum Alcohol < 10.0 Microbiology 08/05 0300 URINE ROUT: Urine Culture - RECD Diagnostic Data EKG Results Sinus rhythm HR 78 Left axis deviation QTc 456 CXR Results No evidence for acute disease. Other Results CT HEAD: No evidence for acute intracranial injury. Assessment/Plan Assessment: 66 y/o M with PMHx of non-insulin dependent T2DM, PVD s/p amputation of right first through third toes, alcohol dependence and chronic pain syndrome who is admitted with altered mental status and RYAN. #Altered mental status: Likely multifactorial secondary to metabolic encephalopathy in the setting of methadone overdose, alcohol withdrawal and UTI. * Admit to General Medicine. * Neurochecks Q6H. * Aspiration, fall and seizure precautions. * 1:1 sitter. * CIWA protocol to monitor for signs and symptoms of alcohol withdrawal. * Around the clock Ativan 2 mg IV TID and Ativan 1 mg IV Q1H PRN per CIWA. * Keep patient NPO pending swallow eval. * Repeat EKG in the AM to assess for QTc prolongation in the setting of methadone overdose. * Administer banana bag. * Low threshold for ICU transfer if patient develops hypotension or delirium tremens. #RAYN: Creatinine 4.3 on admission, significantly increased from baseline of 0.6. Differential includes UTI, metformin use and dehydration. Received 3 L of NS (1 L in the EMS and 2 L in the ED) with improvement of lactic acid from 2.6 to 1.5. * Continue aggressive hydration with NS @ 200 cc/hr. * Monitor strict I/Os. * Repeat BMP in the AM. * Check renal US to rule out urinary tract obstruction. * Hold [id number] Lasix and lisinopril. * No diagnostic benefit of urine lytes as patient is on Lasix. #UTI: In the setting of dysuria, nocturia, suprapubic discomfort and left CVA tenderness on exam, mild leukocytosis and urinalysis with positive nitrites. Remains afebrile. * Order UCx and BCx. * Ceftriaxone 1 g IV daily. * Repeat CBC in the AM to monitor WBC count. #Non-insulin dependent T2DM: Takes metformin 500 mg PO BID. * Hold oral hypoglycemic agents. * Accu-checks and Novolin NPO sliding scale Q6H. #Chronic pain: * Avoid narcotics except morphine 2 mg IV Q4H PRN for severe pain (scale 7-10). * Tylenol 1 g IV Q6H PRN for moderate pain (scale 4-6). * Administer Lidocaine patch. Diet: NPO DVT PPx: HSQ and ALPs CODE: FULL As Ranked By This Provider Problem List: 1. Metabolic encephalopathy 2. Alcohol withdrawal 3. UTI (urinary tract infection) 4. Acute kidney injury 5. Methadone overdose 6. Non-insulin dependent type 2 diabetes mellitus 7. Lactic acidosis 8. Dehydration Core Measures/Miscellaneous Acute Coronary Syndrome ACS Diagnosis: No Cerebrovascular Accident CVA/TIA Diagnosis: No Congestive Heart Failure CHF Diagnosis: No Venous Thromboembolism VTE Risk Factors: Acute medical illness, Age > 40, Previous VTE [facility] prophylaxis d/t: No contraindications No VTE Pharm Prophylaxis d/t: No contraindications VTE Diagnosis: No VTE Type: NONE VTE Confirmed by (Test): NONE Severe Sepsis Severe Sepsis Present: No Septic Shock Septic Shock Present: No Miscellaneous Documentation Attending Case Discussed With: YUDY MERAZ MD Primary Care Physician: RUDOLPH CISNEROS MD Patient sees these Specialists N/A Level of Patient Care: General Medicine KALINA GUEVARA 08/05/16 0434: Resident Review Statement Resident Statement: examined this patient, discussed with manager internal, agreed with manager internal, discussed with family, reviewed EMR data (avail), discussed with nursing , discussed with case mgmt, reviewed images, amended to note Other Findings: 66-year-old gentleman presented with chief complaint of altered mental status. PMH: heavy ETOH abuse and ETOH dependence with multiple admission for alcohol detox no history of alcohol related seizure or ICU admission for EtOH detox, COPD, PVD, PTSD, hepatitis C, chronic back pain, PE. According to the ED records patient was brought in by ambulance after his neighbors found him confused and disoriented and called the first responders. Patient is confused and not able to provide details. According to him for the past few days he was alone and has not been eating and drinking properly. Additionally he endorsed dysuria and nocturia but denies frequency in urination. Patient denies any fever, chills, GI symptoms, chest pain, palpitation, loss of consciousness, respiratory symptoms. He is a heavy alcohol user and for the past few days he has been drinking heavily. Last drink was a pint of vodka yesterday. V/S: Temperature 96.9, respiratory rate 14, pulse 78, blood pressure 98/54 which came up to 101/55 after receiving 2 L of fluid/ 98% in room air. Physical exam: Alerts, not in acute distress, able to follow verbal commands, oriented to person and place but not to time. HEET: Mucous membranes are dry; abdomen: Soft no guarding no rebound, slight suprapubic tenderness, left CVA tenderness. Neurology: No tremor, patient reports auditory hallucination, he also feels anxious. Extremities: Pulses are weak no cyanosis, BANK COURIER> 2sec, Remainder of the physical exam was unremarkable. Lab findings: WBC 11.4 left shift no bandemia, BUN of 36 creatinine 4.3, anion gap 20, total bilirubin 0.8; AB.37//88. Urine toxicology: Positive for methadone, UA: Positive nitrates and pyuria. SOFA 4. Assessment 66-year-old gentleman with multiple comorbidities was admitted for altered mental status and urinary tract infection. List of active problems #1 to mental status: List of differential diagnosis: Heavy alcohol abuse and alcohol withdrawal, opiate intoxication, sepsis. Patient is a heavy drinker and has been drinking heavily for the past few days. His last drink was yesterday so he could possibly withdrawal from alcohol that contributes to his altered mental status. Another contributing factor is intoxication base opiates. Patient has an obvious source of infection (urinary tract infection) in addition to slight leukocytosis, elevated SOFA 4, which necessitated consideration of sepsis is an important contributing factor to altered mental status. * Admit to general medical floor * Nothing by mouth * Continue IV hydration; titrate for urine output the goal is 0.5 mL per KG per hour urine output * Maintain blood pressure MAP > 65 mmhg * Trend lactic acid: Initial 2.6>>> 1.5 expecting 20% decrease per 2-3 h as an indicator of effective hydration * Stop antihypertensive medication * IV ceftriaxone 1000 mg daily * Follow urine cultures and blood culture * Aspiration precaution; fall precaution; seizure precaution * Nothing by mouth for altered mental status * Started patient on banana bag 150 mL per hour * Ativan 2 mg every 8 IV * Ativan 1 mg every 1 hours per CIWA score * Low threshold for ICU transfer in case of hemodynamic instability and more than 30 mg Ativan requirements w/i 3 h #2 acid-base disturbance: MAAG possibly due to type A lactic acidosis (organ hypoperfusion secondary to dehydration or sepsis), type B lactic acidosis ( secondary to medication more commonly metformin and rarely due to AFUA inhibitor) , starvation ketoacidosis(poor oral intake for the past few days) and renal failure, or alcohol (however, alcohol levels are undetectable!!). * Continue IV hydration * Stop metformin and lisinopril * Repeat labs in the a.m. #3 urinary tract infection: Lower urinary tract infection (cystitis and urethritis) versus upper urinary tract infection (pyelonephritis). * Discussed above * Obtain renal ultrasound to rule out obstruction and pyelonephritis #4 RYAN secondary to poor oral intake and sepsis/hypotension and medication. * Continue IV hydration * Stop lisinopril and Lasix #5 EtOH dependence/withdrawal and opiate intoxication * Start banana bag 150 mL per hour * Seizure precaution/aspiration precaution * Ativan 2 mg IV every 8 * Ativan 2 mg IV every per CIWA * Dose threshold for ICU transfer for Ativan drip in case of hemodynamic instability and Ativan requirements of more than 30 mg within the first 3 hours of admission * Repeat EKG in the am looking for QT prolongation * psych consult in am #6 HFpEF: Not in ADHF * Stop Lasix for RYAN and hypotension #7 diabetes * Nothing by mouth * Stop oral hypoglycemic agents * Start Novolin sliding scale for amputation * Fingersticks every 6h #8 COPD/recersible airway disease overlap * Albuterol every 4 as needed * Dueneb every 4 as needed * TRC #9 Chronic back pain * Lidocaine patch * IV morphine 2 mg every 4 for severe pain and to prevent full-blown opiate withdrawal DVT prophylaxis-the brain 5000 units every 8 hours Pain management: Mild pain lidocaine patch, IV Tylenol for moderate pain, IV morphine for severe pain Full code YUDY MERAZ 08/05/16 0458: Attending MD Review Statement Attending Statement Attending MD Statement: examined this patient, discuss w/resident/PA/MARINE MECHANIC, agreed w/resident/PA/MARINE MECHANIC, reviewed EMR data (avail), reviewed images, amended to note Attending Assessment/Plan: CC: confusion PMH: HTN, COPD, DM, PVD, PTSD, hep C, chronic back pain, history of PE, Sz History is limited as patient is confused. Patient is oriented in place and self but not in time. History is obtained from chart. Patient's neighbors called EMS because he was screaming. When EMS arrived patient was in bed, confused, he thought he was at shop right and that people had him locked in there. Patient is cooperative but confused, endorses burning in urine, and back pain. He admits that he took some sleeping pills but unknown. He drinks one pint of vodka every day, last drink was today before, hallucinations present. Vitals: Afebrile, pulse, RR, O2 saturation acceptable range. Blood pressure 98/ 54 at presentation, improved to 101/55 after 2 L normal saline. On exam: A O place, cooperative, no acute distress, neck supple, JVD normal, no lymphadenopathy, mucosa dry, strength and tone and reflexes normal, tremors present, no dependent edema, no obvious skin rashes or inflammation, extremities are cold to touch but perfusion normal, pulses normal CVS: S1-S2, RRR. RS: Clear to auscultate bilaterally. Abdomen: Soft, NT, ND, left CVA mildly tender bowel sounds present. Blood in Small catheter Labs: WBC 11.4, neutrophils 71%. Chloride 97, bicarbonate 20, and anion gap 20, BUN 36, creatinine 4.3, glucose 129, lactate 2.6, AST 47, ALT 99, alkaline phosphatase 94, troponin less than 0.01, UA is positive for nitrites and leukocyte esterase U tox positive for methadone more than 735, alcohol less than 10 AB.37/37/88/[address] head: No evidence of intracranial injury CXR: No evidence of acute disease A and P Patient was found confused at home and still he is confused, not oriented. UA positive for methadone, which is not his prescribed medications. According to ER staff he and his as well known to them, and has history of methadone use, patient may have used her methadone. Secondly patient also complains of burning urine and UA positive for UTI, infection we can be adding up to encephalopathy. Patient has significant alcohol history 1 pint of vodka every day, currently all called level less than 10. DT and alcohol withdrawal appears to be contributing factor in encephalopathy. Patient's creatinine is significantly increased from 0.6 to 4.3 in last 10 days, patient appears dehydrated on examination, mildly hypotensive at presentation, volume contraction, poor by mouth intake may be contributing to acute kidney injury. Small catheter was placed in ER with mild resistance, but no evidence of obstruction. Urine output has been 57 ml since presentation but improving after hydration. As patient is on Lasix, urine electrolyte studies may not be beneficial at this point. + Metabolic encephalopathy + Alcohol withdrawal + UTI + Methadone overdose + Acute kidney injury + Dehydration + History of PVD, HTN, COPD, DM, Sz, chronic back pain, PTSD - Admit to general medicine - One-on-one sitter - Avoid narcotics - Seizure precautions - please inform poison control about suspected methadone overdose - Neurochecks every 6 hours - Continue aggressive hydration with normal saline at 200 mL per hour for 4th L, if blood pressure maintaining, then decrease flow rate to 100 to 125 mL per hour - Strict I's and O's - Repeat CBC BMP in a.m. - Urine culture, blood culture - Trend lactate - IV ceftriaxone 1 g daily - Check coag studies - Renal ultrasound - Replace thiamine, folate acid - Repeat EKG in a.m. - Hold all his by mouth medications, reassess swallowing in a.m., resume medications as tolerated in morning - When necessary Ativan according to CIWA score, continue scheduled Ativan - Low threshold to transfer to ICU if severe DTs, or hypotension - Sliding scale insulin - DVT prophylaxis with Alps
--- NOTE | 2016-08-05 03:32 | NUR ---
CRITICAL TEST RESULTS [id number] KEAGAN CRISOSTOMO TESTS AND RESULTS: lactic acid 2.6 Results received and read back by: INGRID PACHECO Results received date and time: 08/05/16 0332 The following provider was notified of the results, and read the results back: DR LEON, DR GILMAN Notified date and time: 08/05/16 at 0330
--- NOTE | 2016-08-05 04:00 | NUR ---
PT BED ASSIGNMENT 221-1
--- NOTE | 2016-08-05 04:48 | NUR ---
PRE HOSP IV SITE DC'D REPORT GIVEN TO SATHISH EDWARDS
--- NOTE | 2016-08-05 04:53 | Admission Certification ---
Admission Certification Certification Statement - As attending physician, I certify that at the time of - admission, based on clinical presentation, severity of - symptoms, need for further diagnostic testing and - therapeutic interventions, and risk of adverse outcomes - without in-hospital treatment, in my clinical assessment, - this patient requires an acute hospital stay for a minimum - of two nights or longer. I have also considered psychsocial - factors such as support system, advanced age, financial - issues, cognitive issues, and failed out-patient treatments, - past re-admission history, safety of patient, and lack of - compliance as applicable. Specific rationale supporting this admission is: Acute kidney injury, encephalopathy
--- NOTE | 2016-08-05 10:24 | NUR ---
MEDICAL ROUNDING TEAM AT BEDSIDE. PT DROWSY YET AROUSABLE TO STERNAL RUBBING. ALERT TO SELF AND PLACE. PT ON RM AIR, RR 18, SPO2 94, HOB ELEVATED.
--- NOTE | 2016-08-05 10:26 | NUR ---
PT GOING DOWN TO ULTRASOUND AT THIS TIME.
[2016-08-05 11:37] LABS: ABSOLUTE BASOPHIL COUNT 0 /CUMM (0.0-0.2); ABSOLUTE EOSINOPHIL COUNT 0.2 /CUMM (0.0-0.7); ABSOLUTE GRANULOCYTE CT 3.8 /CUMM (1.4-6.5); ABSOLUTE LYMPH COUNT 1.5 /CUMM (1.2-3.4); ABSOLUTE MONOCYTE COUNT 0.7 /CUMM (0.10-0.60); BASOPHIL % 0.4 % (0.0-2.0); EOSINOPHIL % 2.7 % (0-5); GRANULOCYTE % 61.8 % (42.2-75.2); MEAN CORPUSCULAR HGB 28.8 PG (27.0-31.0); MEAN CORPUSCULAR VOLUME 87.2 FL (80.0-94.0); MEAN PLATELET VOLUME 9.9 FL (7.4-10.4); PLATELET COUNT 192 /CUMM (130-400); RED BLOOD CELL CT 3.51 /CUMM (4.70-6.10); WHITE BLOOD CELL COUNT 6.1 /CUMM (4.8-10.8)
[2016-08-05 11:39] LABS: HEMATOCRIT 30.6 % (42-52)
--- NOTE | 2016-08-05 11:40 | NUR ---
0500 ADMITTED FROM ER VIA STRETCHER TO ROOM 221.ON ISOLATION DUE TO MRSA+.PT WAS ALERT ON ADMISSION.KNOWS SELF & PLACE.F/C IN PLACED DRAINING SCANT AMOUNT OF [place] URINE.ON RA.NO RESP DISTRESS NOTED.BANANA BAG INFUSING IN RFA.NO C/O PAIN.BED ALARM PLACED.ALPS ON.SEIZURE PRECAUTION MAINTAINED. NPO.PT FALL BACK TO SLEEP.SKIN INTACT.
--- NOTE | 2016-08-05 12:08 | ULTRASOUND REPORT ---
EXAMINATION: US RETROPERITONEAL COMPLETE (RENAL) CLINICAL INFORMATION: Acute renal insufficiency. COMPARISON: Renal ultrasound from 02/28/2016. Abdomen CT from 06/21/2016 and 07/24/2016 TECHNIQUE: Real-time imaging of the kidneys and bladder. FINDINGS: RIGHT KIDNEY: 12.5 x 6.3 x 6.1 cm (SAG x AP x TRV). The kidney has normal cortical thickness and echotexture. No evidence of solid renal mass, perinephric fluid collection, hydronephrosis or nephrolithiasis. The known simple cyst at the medial aspect of the upper pole could was not detected on this ultrasound exam. LEFT KIDNEY: 12.1 x 7.2 x 6 cm (SAG x AP x TRV). Left kidney has normal cortical thickness and echotexture. No evidence of renal mass, hydronephrosis or nephrolithiasis. A small, 0.8 cm hypodense focus (likely cyst) in the left lower pole present on CT exams of 06/21/2016 and 07/24/2016 is not sonographically detected. BLADDER: Decompressed by a Small catheter. No pelvic free fluid. OTHER: The visualized liver is diffusely hyperechoic, consistent with steatosis. IMPRESSION: 1. No acute findings; no evidence of nephrolithiasis or urinary tract obstruction. 2. Kidneys have normal size and echotexture. There are no perinephric fluid collections..
--- NOTE | 2016-08-05 14:38 | PN- Att Addend ---
Attending Addendum Attending Brief Note Patient seen and examined. This morning he was very somnolent and arousable only to sternal rub. He would answer questions appropriately and moves extremities spontaneously before for the right back to sleep. He was able to protect his airway and did not require oxygen supplementation. Blood gas on admission showed no evidence of CO2 retention. In the afternoon patient was reevaluated found to be alert and oriented 3. He continues to answer questions appropriately. He moved extremities spontaneously and 2, and. Vital Signs Date Time Temp Pulse Resp B/P B/P Pulse O2 O2 Flow FiO2 Mean Ox Delivery Rate 08/05 1404 96.4 75 20 112/60 98 Room Air 08/05 1136 94 Room Air 08/05 1045 Room Air 08/05 1023 18 94 Room Air 08/05 0517 97.4 79 20 100/60 96 Room Air 08/05 0500 97.4 76 20 100/60 / 0500 96 Room Air 08/05 0442 96.8 72 20 103/58 / 0440 96.8 72 20 103/58 100 Room Air 08/05 0354 96.9 82 20 115/58 98 Room Air 08/05 0310 110/61 / 0211 96.9 78 14 101/55 98 Room Air 08/04 2359 96.9 84 18 98/54 99 Nasal 4.0L Cannula Gen. appearance: Not in acute distress HEENT: Anicteric, no pallor, pupils equal and reactive Heart: S1-S2 regular Lungs: Good entry bilaterally, clear to auscultation Abdomen is soft, nontender with normal bowel sounds Extremities: No pedal edema Skin: Intact Neurologic: No gross focal deficit. Laboratory Tests 08/05/16 1128: CBC w Diff NO MAN DIFF REQ, RBC 3.51 L, MCV 87.2, MCH 28.8, RDW 14.0, MPV 9.9, Gran % 61.8, Lymphocytes % 24.4, Monocytes % 10.7 H, Eosinophils % 2.7, Basophils % 0.4, Absolute Granulocytes 3.8, Absolute Lymphocytes 1.5, Absolute Monocytes 0.7 H, Absolute Eosinophils 0.2, Absolute Basophils 0, PUBS MCHC 33.0 08/05/16 0629: Lactic Acid Cancelled 08/05/16 0620: Anion Gap 11, Estimated GFR 30 L, BUN/Creatinine Ratio 10.9, PT 14.0 H, INR 1.34 H 08/05/16 0345: Lactic Acid 1.5 08/05/16 0045: pH 7.37, pCO2 37, pO2 88, HCO3 22, ABG O2 Sat (Measured) 96.0, P-50 (Temp Corrected) Y, Carboxyhemoglobin 0 L, O2 Concentration % RA, Temperature 96.9 L , Phlebotomy Draw Site RIGHT BRACHIAL, Urine Opiates Screen < 100.00, Methadone Screen > 735 H, Barbiturate Screen < 60, Ur Phencyclidine Scrn < 6.00, Amphetamines Screen < 100, U Benzodiazepines Scrn < 85, Urine Cocaine Screen < 50, Urine Cannabis Screen 47.80, Urinalysis MOD H, Urine Color YEL, Urine Clarity CLDY H, Urine pH 5.0, Ur Specific [place] >= 1.030, Urine Protein >=300 H, Urine Ketones TRACE H, Urine Nitrite POS H, Urine Bilirubin NEG@ICTO, Urine Urobilinogen 1.0, Ur Leukocyte Esterase TRACE H, Ur Microscopic SEDIMENT EXAMINED, Urine RBC 10-15 H, Urine WBC 3-5 H, Ur Epithelial Cells FEW, Urine Bacteria FEW H, Urine Mucus FEW, Urine Hemoglobin LARGE H, Urine Glucose NEG 08/05/16 0010: Anion Gap 20 H, Estimated GFR 14 L, BUN/Creatinine Ratio 8.4, Glucose 129 H, Lactic Acid 2.6 H, Calcium 9.7, Magnesium 2.1, Total Bilirubin 0.8, Direct Bilirubin 0.4, AST 47, ALT 99 H, Alkaline Phosphatase 94, Troponin I < 0.01, Total Protein 7.6, Albumin 4.2, Amylase < 30 L, Lipase 39, CBC w Diff NO MAN DIFF REQ, RBC 4.30 L, MCV 86.8, MCH 28.2, RDW 14.4, MPV 10.2, Gran % 71.9, Lymphocytes % 19.0 L, Monocytes % 7.9, Eosinophils % 0.9, Basophils % 0.3, Absolute Granulocytes 8.2 H, Absolute Lymphocytes 2.2, Absolute Monocytes 0.9 H, Absolute Eosinophils 0.1, Absolute Basophils 0, PUBS MCHC 32.5 L, Serum Alcohol < 10.0 Microbiology 08/05 629 BLOOD: Blood Culture - RECD 05/15 0620 BLOOD: Blood Culture - RECD 08/05 599 BLOOD: Blood Culture - CAN Cancelled: Cancelled via OE: Per Decision 08/05 06 BLOOD: Blood Culture - CAN Cancelled: Cancelled via OE: Per Decision 08/05 0300 URINE ROUT: Urine Culture - RECD Problems: 1. Altered mental status; now improved. Likely secondary to medication use. UDS was positive for methadone. It is noted that patient is not prescribed methadone 2. Concern for alcohol withdrawal. 3. Urinary tract infection. 4. Acute kidney injury 5. Hypokalemia Plan: -Avoid significant therapy. Discontinue standing dose of Ativan and monitor with CIWA scale only. -Neuro watch. Maintain aspiration precautions. -Swallow evaluation. Resume diet as recommended. -Empiric therapy with IV antibiotic therapy. Follow-up urine cultures. Currently afebrile and white cell count has trended down to normal. -Creatinine level is improving suggesting a prerenal state. Continue IV hydration. Obtain renal sonogram to rule out obstructive disease. Monitor input output closely. -Continue sliding scale insulin coverage. Hold oral hypoglycemic medications for now. -DVT prophylaxis with heparin subcutaneous.
[2016-08-06] VITALS (8 sets, daily range): BP systolic 102–144; BP diastolic 60–70
--- NOTE | 2016-08-06 07:21 | PN- Housestaff ---
LULA NEWTON,NIKHIL 08/06/16 0721: Subjective Follow-up For: UTI Altered mental status Subjective: I saw and examined the patient today morning He is doing better, alert and oriented X3. Still had dysuria, no fever, nausea, vomiting overnight. He reports abdominal pain in the left lower quadrant, last BM 2 days ago. Couldnt really sleep well. Review of Systems Constitutional: Reports: see HPI. Gastrointestinal: Reports: abdominal pain, constipation. Comments: ROS negative except the above. Objective Last 24 Hrs of Vital Signs/I&O Vital Signs Date Time Temp Pulse Resp B/P B/P Pulse O2 O2 Flow FiO2 Mean Ox Delivery Rate 08/06 0642 98.6 73 20 102/70 98 Room Air 08/06 0256 99.2 68 20 130/70 90 Room Air 08/06 0200 99.2 68 20 130/70 /16 0000 100 Room Air 08/05 2200 99.4 84 20 132/68 / 2148 99.4 84 20 132/68 100 Room Air 08/05 2145 96 Room Air 08/05 2000 96.4 75 20 112/60 05/15 1815 98.3 99 24 120/64 98 Room Air 08/05 1800 96.4 75 20 112/60 05/15 1600 96.4 75 20 112/60 05/15 1404 96.4 75 20 112/60 98 Room Air 08/05 1136 94 Room Air 08/05 1045 Room Air 08/05 1023 18 94 Room Air Intake & Output 08/06 0800 /16 0000 08/05 1600 Intake Total 1100 Output Total 2450 1800 500 Balance -2450 -700 -500 Intake, IV 800 Intake, Oral 300 Output, Urine 2450 1800 500 Physical Exam General Appearance: Alert, Oriented X3, Cooperative Skin: No Rashes, No Breakdown HEENT: Atraumatic, PERRLA, EOMI Neck: Supple Cardiovascular: Normal S1, Normal S2 Lungs: Clear to Auscultation, Normal Air Movement Abdomen: Normal Bowel Sounds, Soft, No Tenderness Neurological: Normal Speech, Normal Tone, Sensation Intact, Cranial Nerves 3-12 NL Extremities: No Clubbing, No Cyanosis, scant edema present Vascular: Normal Pulses, Pulses Symmetrical Current Medications: Current Medications Sig/Mele Start time Last Medication Dose Route Stop Time Status Admin Acetaminophen 1,000 MG Q6P PRN 08/05 0500 AC IV Albuterol Sulfate 3 ML EVERY 4 HRS/AWAKE 08/05 1200 AC 08/05 INH 2145 Ceftriaxone Sodium 1,000 MG DAILY 08/05 1000 AC 08/05 IV 0929 Cyanocobalamin/ 1 BAG DAILY 08/05 1000 AC 08/05 Thiamine/Pyridoxine IV 08/07 1759 0400 Sodium Chloride 1,000 ML Heparin Sodium 5,000 UNIT Q8 08/05 0600 AC 08/06 (Porcine) SC 0603 Insulin Aspart 0 TIDAC 08/05 1700 AC SC Insulin Human Regular 0 Q6 08/05 0600 DC 08/05 SC 0642 Lidocaine 1 PAT Q24H 08/06 1400 AC EXT Lidocaine 1 PAT Q24H 08/05 0500 DC 08/05 EXT 1426 Lorazepam 1 MG Q1P PRN 08/05 1615 CAN IV Lorazepam 1 MG Q1 PRN 08/05 0515 DC IV Lorazepam 2 MG TID 08/05 0502 DC 08/05 IV 0649 Morphine Sulfate 2 MG Q4P PRN 08/05 0500 AC IV Patient Medication 1 ED .STK-MED ONE 08/05 1407 PA Teaching ED 08/05 1408 Potassium Chloride 40 MEQ 1900 08/05 1900 DC 08/05 PO 08/05 1901 1808 Potassium Chloride 40 MEQ ONCE ONE 08/05 1430 DC 08/05 PO 08/05 1431 1520 Potassium Chloride 40 MEQ Q10H 08/05 1030 AC 08/06 Dextrose/Sodium 1,000 ML IV 0600 Chloride Potassium Chloride 10 MEQ Q1H 08/05 1030 DC 08/05 IV 08/05 1131 1146 Sodium Chloride 1,000 ML ONCE ONE 08/05 05 DC IV 08/05 1014 Last 24 Hrs of Lab/James Results Last 24 Hrs of Labs/Mics: Laboratory Tests 08/05/16 1128: CBC w Diff NO MAN DIFF REQ, RBC 3.51 L, MCV 87.2, MCH 28.8, RDW 14.0, MPV 9.9, Gran % 61.8, Lymphocytes % 24.4, Monocytes % 10.7 H, Eosinophils % 2.7, Basophils % 0.4, Absolute Granulocytes 3.8, Absolute Lymphocytes 1.5, Absolute Monocytes 0.7 H, Absolute Eosinophils 0.2, Absolute Basophils 0, PUBS MCHC 33.0 Lines/Diet/Fluids Lines: peripheral lines Assessment/Plan Assessment: 66 y/o M with PMHx of non-insulin dependent T2DM, PVD s/p amputation of right first through third toes, alcohol dependence and chronic pain syndrome who is admitted with altered mental status and RYAN. Yesterday afternoon he woke alert & oriented X 3 - reports that he hasnt been eating well for the past few days, want to as his is not with him. He suddnely felt short of breath at home then unsure of further events. Altered mental status: Likely multifactorial secondary to metabolic encephalopathy in the setting of methadone overdose, alcohol withdrawal and UTI. * Yesterday patient is very somnolent, woke up in the afternoon - remained alert , oriented. * We discontinued Ativan, still CIWA scale in place score 0-6 overnight. * He denies any suicidal ideation today. * thiamine, folate, multivitamin. Hyperkalemia * Admitted with hypokalemia (3.0) received K-Dur 40mg twice along with potassium in his fluids continuously. * K of 6.0 with normal EKG, repeat K of 5.2 after giving calcium gluconate, insulin and dextrose. * Giving 1/2NS @100ml/hr 1 litre * Repeat BEP tomorrow. RYAN: Creatinine 4.3 on admission (baseline 0.6). Differential includes UTI, metformin use and dehydration. * Yesterday hydrated with D51/2NS with potassium @100ml/hr, also received K Dur orally. * Renal ultrasound to rule out post renal causes. * Responded well to fluids with Cr back to basline today --> PRERENAL * Discontinued yadav. Cr back to baseline today. * Hold [id number] Lasix and lisinopril. UTI: In the setting of dysuria, nocturia, suprapubic discomfort and left CVA tenderness on exam, mild leukocytosis and urinalysis with positive nitrites. Remains afebrile. * UCx and BCx - negative so far. * Ceftriaxone 1 g IV daily. * Still symptomatic, mild low grade temp max - 99.4, improving white count. Non-insulin dependent T2DM: Takes metformin 500 mg PO BID. * Hold oral hypoglycemic agents. * Accu-checks and Novolin NPO sliding scale Q6H. Chronic pain: * Avoid narcotics except morphine 2 mg IV Q4H PRN for severe pain (scale 7-10). * Tylenol 1 g IV Q6H PRN for moderate pain (scale 4-6). * Administer Lidocaine patch. Diet: CC3, mechanical ground & thin liquids DVT PPx: HSQ and ALPs CODE: FULL Problem List: 1. Methadone overdose 2. UTI (urinary tract infection) 3. Non-insulin dependent type 2 diabetes mellitus Pain Ratin Pain Location: Abdomen Pain Goal: Pain 4 or less Pain Plan: tylenol prn Tomorrow's Labs & Rationales: bep to monitor lytes and Cr. BEATRIS NEWOTN,KHANH 08/06/16 1228: Attending MD Review Statement Attending Statement Attending MD Statement: examined this patient, discuss w/resident/PA/RESIDENTIAL SUBCONTRACTOR, agreed w/resident/PA/RESIDENTIAL SUBCONTRACTOR, reviewed EMR data (avail), discussed with nursing, discussed with case mgmt, amended to note Attending Assessment/Plan: Patient seen and examined. He remains alert and oriented 3. Conversing appropriately. He continues to maintain saturation on room air. Ambulating freely. No new complaints today. He was hypokalemic yesterday I received potassium supplementation. Potassium levels are markedly elevated. His creatinine level has returned to normal. On examination lungs are clear bilaterally. Abdomen is soft and nontender. He has no peripheral edema. Recommendations: -Given a dose of Kayexalate now. Repeat potassium level today show that this morning's labs were not drawn from IV site with potassium running. -Discontinue all potassium supplementation. Hydrate with half normal saline at 100 mL an hour for 2 L. -Obtain 12-lead EKG. If repeat potassium level still markedly elevated, recommend treatment with insulin/D50, calcium gluconate and transfer to the telemetry service. -He did not require any Ativan yesterday. He has no evidence of wall: Withdrawal at present. Patient was at home on presented with negative alcohol level. Continue to hold off benzodiazepine therapy. -His altered mental status on presentation was likely secondary to medication overdose. Patient has been encouraged to abstain from taking his 's medications including methadone. Anticipate discharge home the next in 4 hours he remains clinically stable. Social work follow-up.
[2016-08-06 08:54] LABS: ABSOLUTE BASOPHIL COUNT 0 /CUMM (0.0-0.2); ABSOLUTE EOSINOPHIL COUNT 0.1 /CUMM (0.0-0.7); ABSOLUTE GRANULOCYTE CT 2.7 /CUMM (1.4-6.5); ABSOLUTE LYMPH COUNT 1.8 /CUMM (1.2-3.4); ABSOLUTE MONOCYTE COUNT 0.5 /CUMM (0.10-0.60); BASOPHIL % 0.5 % (0.0-2.0); EOSINOPHIL % 2.8 % (0-5); GRANULOCYTE % 52.6 % (42.2-75.2); HEMATOCRIT 32.2 % (42-52); MEAN CORPUSCULAR HGB CONC 32.8 G/DL (33.0-37.0); MEAN CORPUSCULAR VOLUME 88.3 FL (80.0-94.0); MEAN PLATELET VOLUME 11.1 FL (7.4-10.4); PLATELET COUNT 209 /CUMM (130-400); RBC DISTRIBUTION WIDTH 14.8 % (11.5-14.5); RED BLOOD CELL CT 3.65 /CUMM (4.70-6.10); WHITE BLOOD CELL COUNT 5.2 /CUMM (4.8-10.8)
--- NOTE | 2016-08-06 22:59 | NUR ---
PT IS STABLE. CONTINUES WITH CONFUSION. MILD ANXIETY AT TIMES WITH GOOD EFFECT FROM 1:1 COMUNICATION. C/O PAIN AT HS, IV TYLENOL GIVEN. SAFETY MAINTAINED. SITTER AT BEDSIDE.
[2016-08-07 06:49] VITALS: BP 112/64
--- NOTE | 2016-08-07 07:14 | PN- Housestaff ---
LULA NEWTON,NIKHIL 08/07/16 0713: Subjective Follow-up For: UTI Subjective: I saw the patient today morning He is alert and oriented X3. Making conversations well. He reports pain in the left knee, reports giving away with walking. He need to go to [place] for pain medicaitons, couldnt reach due to transportation issues. He prefers to go home, as his was home from yesterday. Review of Systems Constitutional: Reports: see HPI. Comments: ROS negative except the above. Objective Last 24 Hrs of Vital Signs/I&O Vital Signs Date Time Temp Pulse Resp B/P B/P Pulse O2 O2 Flow FiO2 Mean Ox Delivery Rate 08/07 0649 99.2 88 16 112/64 96 Room Air 08/06 2223 100.0 110 20 144/68 95 08/06 1800 98.7 88 18 124/68 08/06 1646 93 Room Air Room Air 08/06 1400 99.4 88 20 130/60 96 Room Air 08/06 0921 98 Room Air 08/06 0756 97.8 73 20 114/60 97 Room Air Intake & Output 08/07 0800 08/07 0000 08/06 1600 Intake Total 410 1350 Output Total Balance 410 1350 Intake, IV 350 850 Intake, Oral 60 500 Number 1 Bowel Movements Physical Exam General Appearance: Alert, Oriented X3, Cooperative, No Acute Distress Skin: No Rashes, No Breakdown HEENT: Atraumatic, PERRLA, EOMI Neck: Supple Cardiovascular: Normal S1, Normal S2 Lungs: Clear to Auscultation, Normal Air Movement Abdomen: Soft, extensive tenderness in the left rib region. Neurological: Normal Speech, Normal Tone, Sensation Intact Extremities: No Clubbing, No Cyanosis Current Medications: Current Medications Sig/Mele Start time Last Medication Dose Route Stop Time Status Admin Acetaminophen 1,000 MG Q6P PRN 08/05 0500 AC 08/06 IV 2105 Albuterol Sulfate 3 ML EVERY 4 HRS/AWAKE 08/05 1200 AC 08/06 INH 2009 Calcium Gluconate 1 GM ONCE ONE 08/06 1015 DC 08/06 Sodium Chloride 100 ML IV 08/06 1114 1255 Ceftriaxone Sodium 1,000 MG DAILY 08/05 1000 AC 08/06 IV 0934 Cyanocobalamin/ 1 BAG DAILY 08/05 1000 DC 08/06 Thiamine/Pyridoxine IV 08/07 1759 0934 Sodium Chloride 1,000 ML Dextrose 25 GM ONCE ONE 08/06 1015 DC 08/06 IV 08/06 1016 1253 Dextrose/Sodium 1,000 ML Q10H 08/06 1015 DC Chloride IV Docusate Sodium 100 MG DAILY 08/06 1000 AC 08/06 PO 0939 Folic Acid 1 MG DAILY 08/07 1000 AC PO Heparin Sodium 5,000 UNIT Q8 08/05 0600 AC 08/07 (Porcine) SC 0501 Insulin Aspart 0 TIDAC 08/05 1700 AC SC Insulin Human Regular 10 UNITS ONCE ONE 08/06 1015 DC 08/06 IV 08/06 1016 1253 Lidocaine 1 PAT Q24H 08/06 1400 AC EXT Morphine Sulfate 2 MG Q4P PRN 08/05 0500 AC 08/07 IV 0453 Multivitamins 1 TAB DAILY 08/07 1000 AC PO Polyethylene Glycol 17 GM ONCE ONE 08/06 0830 DC 08/06 PO 08/06 0831 0939 Potassium Chloride 40 MEQ Q10H 08/05 1030 DC 08/06 Dextrose/Sodium 1,000 ML IV 0600 Chloride Sodium Chloride 1,000 ML .Q10H 08/06 2130 AC 08/06 IV 08/07 0729 2141 Sodium Chloride 500 ML .Q5H 08/06 1915 DC IV 08/07 0514 Sodium Polystyrene 120 ML ONCE ONE 08/06 1015 DC 08/06 Sulfonate PO 08/06 1016 1230 Thiamine HCl 100 MG DAILY 08/07 1000 AC PO Last 24 Hrs of Lab/James Results Last 24 Hrs of Labs/Mics: Laboratory Tests 08/07/16 0620: Sodium Pending, Potassium Pending, Chloride Pending, Carbon Dioxide Pending, Anion Gap Pending, BUN Pending, Creatinine Pending, BUN/Creatinine Ratio Pending 08/06/16 1741: 08/06/16 1240: Assessment/Plan Assessment: 66 y/o M with PMHx of non-insulin dependent T2DM, PVD s/p amputation of right first through third toes, alcohol dependence and chronic pain syndrome who is admitted with altered mental status and RYAN. Altered mental status: Likely multifactorial secondary to metabolic encephalopathy in the setting of methadone overdose, alcohol withdrawal and UTI. * Agitated and combative occasionally at nights. * Psych consulted. * He denies any suicidal ideation today. * thiamine, folate, multivitamin. Hyperkalemia * RESOLVED RYAN: * RESOLVED UTI: In the setting of dysuria, nocturia, suprapubic discomfort and left CVA tenderness on exam, mild leukocytosis and urinalysis with positive nitrites. Remains afebrile. * UCx and BCx - negative so far. * DISCONTINUED ANTIBIOTICS TODAY * Still symptomatic, mild low grade temp max - 99.4, improving white count. Non-insulin dependent T2DM: Takes metformin 500 mg PO BID. * Hold oral hypoglycemic agents. * Accu-checks and Novolin NPO sliding scale Q6H. Chronic pain: * Tyleonol oral and naproxen 500mg TID for pain round the clock. * Administer Lidocaine patch. * Social work consult for transportation isssues and pain management referral. Diet: CC3, mechanical ground & thin liquids DVT PPx: HSQ and ALPs CODE: FULL Problem List: 1. Neuropathy 2. Chronic pain 3. RYAN (acute kidney injury) 4. Methadone overdose 5. Chronic pain syndrome Pain Ratin Pain Location: Ribs, left knee Pain Goal: Pain 4 or less Pain Plan: percocet Tomorrow's Labs & Rationales: none KHANH SPEAR MD 08/07/16 1142: Attending MD Review Statement Attending Statement Attending MD Statement: examined this patient, discuss w/resident/PA/PURCHASE PRICE ANALYST, agreed w/resident/PA/PURCHASE PRICE ANALYST, reviewed EMR data (avail), discussed with nursing, discussed with case mgmt, amended to note Attending Assessment/Plan: Nursing staff reported that patient yesterday was confused. This morning however we find him alert and oriented 3, conversing appropriately, not in any acute distress. He complains of diffuse joint pain which is chronic. Review of his [place] medical prescription monitoring program shows that he has been getting prescriptions for opioids particularly Percocet from the emergency room here intermittently going back till February 2016. When I discussed this with the patient he reported that his primary care provider at the [facility] is no longer writing prescriptions for pain medications for him and has referred him to the pain management clinic. Patient reports that he is unable to find transportation to the pain clinic and also has not gone there. He intermittently comes to the emergency room for prescriptions was discharged with prescriptions when hospitalized. I did discuss with him that this is not a long -term plan for pain control. And encourage him to follow-up at the pain clinic. Potassium level has been corrected appropriately and is currently remains within normal limits. Nursing staff reports that he requires 2 people to assist in mobilization. Recommendations: -black ash worker consultation for assistance in keeping up with his pain clinic referral. -Physical therapy consultation for discharge disposition planning. -Recommend discontinuation of IV Tylenol and IV morphine. Recommend pain control with use of Tylenol and NSAID therapy such as naproxen. PPI therapy with concomitant use of NSAIDs. -Recommend discontinuation of IV Tylenol and IV morphine. Recommend pain control with use of Tylenol and NSAID therapy such as naproxen. PPI therapy with concomitant use of NSAIDs. Potassium level has been corrected appropriately and is currently remains within normal limits. Nursing staff reports that he requires 2 people to assist in mobilization. Recommendations: -black ash worker consultation for assistance in keeping up with his pain clinic referral. -Physical therapy consultation for discharge disposition planning. -Recommend discontinuation of IV Tylenol and IV morphine. Recommend pain control with use of Tylenol and NSAID therapy such as naproxen. PPI therapy with concomitant use of NSAIDs.
--- NOTE | 2016-08-07 13:23 | RADIOLOGY REPORT ---
EXAMINATION: XR RIBS, LEFT CLINICAL INFORMATION: Pain and extensive tenderness on palpation of left ribs. Evaluate for fracture. COMPARISON: Multiple prior chest x-rays, most recent of which is dated 08/05/2016. CT scan of the chest dated 02/20/2016 TECHNIQUE: 5 views of the left ribs were obtained. FINDINGS: The cardiomediastinal silhouette is within normal limits in size. Calcification of the aorta is seen. Lungs bilaterally are symmetrically expanded and clear. No effusion or pneumothorax is seen. Bony structures are unremarkable. Specifically, the left ribs are intact with no fractures seen. IMPRESSION: No evidence of left rib fractures.
--- NOTE | 2016-08-07 14:47 | NUR ---
Multiple referrals recived over the past few days on behalf of this 66 year old man, admitted to the hospital on 08/05/16 with UTI and Pyelonephritis. This patient is well known to the medical team (as is his ) for multiple admissions to this hospital. Initial referrral was for "methdaone"; second referral was to "Assess patient home situation of can go home", and finally, [facility]". Call placed to Dr. Lucas.
[2016-08-07 14:59] VITALS: BP 120/70
--- NOTE | 2016-08-07 18:00 | Incdntl Nt Psy ---
Incidental Note Notation: Date of Consult: 08/07/16 Reason for Consult: "Agitated, confused during nights" Ordered by Dr. Brooks Attending Dr. Zamora 66-year-old male admitted for UTI and pyelonephritis. Assessment/Plan Plan: 1. Please continue to avoid benzodiazepines, opioid analgesics, and meds with strong anticholinergic properties as much as possible to prevent further confusion. 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 2. Please initiate the following nonpharmacologic interventions: -Avoid nursing and medical procedures during sleep hours whenever possible - Cluster at night interventions that must be completed as much as possible to minimize sleep disruption - Decrease noise patient area during sleeping hours - Reduce lighting at night - Ensure patient has any sensory aids close by that he regularly uses 3. Recommend melatonin 10 mg daily at bedtime. 4. For acute agitation recommend haloperidol 2 mg by mouth PRN Q12H for dangerous agitation, consider IM formulation only if patient is unable to take PO. EKG, Mg and K will need to monitored on this medication. 5. Full psychiatric evaluation and evaluation note to follow on 08/08/2016. Thank you for including psychiatry in this case we'll continue to follow.
[2016-08-07 22:06] VITALS: BP 120/60
[2016-08-08 06:00] VITALS: BP 110/70
[2016-08-08 06:42] VITALS: BP 110/70
--- NOTE | 2016-08-08 07:06 | PN- Housestaff ---
LULA NEWTON,NIKHIL 08/08/16 0705: Subjective Follow-up For: UTI Subjective: I saw and examined the patient today morning He was unable to sleep last night as he was not provided with narcotics. He claims naproxen & tylenol are not helping him. As this patient is going to ER, never following with pain management clinic, we are not offering any pain medications. He need to call PCP and get pain management referral from them. I tried to call our pain management clinic for appointment, they refused as he is a new patient, they need to be provided with records from PCP before he was provided with appointement/medications. Review of Systems Constitutional: Reports: see HPI. Comments: ROS negative except the above. Objective Last 24 Hrs of Vital Signs/I&O Vital Signs Date Time Temp Pulse Resp B/P B/P Pulse O2 O2 Flow FiO2 Mean Ox Delivery Rate 08/08 0642 97.7 69 20 110/70 96 Room Air 08/07 2206 97.6 64 20 120/60 97 Room Air 08/07 1830 97 Room Air 08/07 1459 99.2 80 20 120/70 96 08/07 1002 97 Room Air Intake & Output 08/08 0800 08/08 0000 08/07 1600 Intake Total 360 30 Output Total 250 500 Balance -250 -140 30 Intake, Oral 360 30 Output, Urine 250 500 Patient 74.843 kg Weight Physical Exam General Appearance: Alert, Oriented X3, Moderate Distress Skin: No Rashes, No Breakdown HEENT: Atraumatic, PERRLA, EOMI Neck: Supple Cardiovascular: Normal S1, Normal S2 Lungs: Clear to Auscultation, Normal Air Movement Abdomen: Normal Bowel Sounds, Soft, No Tenderness Neurological: Normal Tone, Sensation Intact, Cranial Nerves 3-12 NL Extremities: No Clubbing, No Cyanosis Current Medications: Current Medications Sig/Mele Start time Last Medication Dose Route Stop Time Status Admin Acetaminophen 650 MG Q6P PRN 08/07 1445 DCD 08/07 PO 2100 Albuterol Sulfate 3 ML EVERY 4 HRS/AWAKE 08/05 1200 DCD 08/08 INH 1222 Docusate Sodium 100 MG DAILY 08/06 1000 DCD 08/08 PO 0939 Folic Acid 1 MG DAILY 08/07 1000 DCD 08/08 PO 0939 Heparin Sodium 5,000 UNIT Q8 08/05 0600 DCD 08/08 (Porcine) SC 0554 Insulin Aspart 0 TIDAC 08/05 1700 DCD SC Lidocaine 1 PAT Q24H 08/06 1400 DCD 08/07 EXT 1445 Melatonin 10 MG AT BEDTIME 08/07 2200 DCD 08/07 PO 2101 Multivitamins 1 TAB DAILY 08/07 1000 DCD 08/08 PO 0939 Naproxen 500 MG ONCE ONE 08/08 1330 DC 08/08 PO 08/08 1331 1337 Naproxen 500 MG Q12P PRN 08/07 1445 DCD 08/08 PO 0554 Patient Medication 1 ED .STK-MED ONE 08/08 1437 DC Teaching ED 08/08 1438 Thiamine HCl 100 MG DAILY 08/07 1000 DCD 08/08 PO 0939 Last 24 Hrs of Lab/James Results Last 24 Hrs of Labs/Mics: Laboratory Tests 08/08/16 0655: Anion Gap 10, Estimated GFR > 60, BUN/Creatinine Ratio 30.0 H, Magnesium 1.6 Lines/Diet/Fluids Lines: peripheral lines Assessment/Plan Assessment: 66 y/o M with PMHx of non-insulin dependent T2DM, PVD s/p amputation of right first through third toes, alcohol dependence and chronic pain syndrome who is admitted with altered mental status and RYAN. Altered mental status: Likely multifactorial secondary to metabolic encephalopathy in the setting of methadone overdose, alcohol withdrawal and UTI. * Remained calm overnight. * He denies any suicidal ideation. * Resolved and stable for discharge today. Hyperkalemia * RESOLVED RYAN: * RESOLVED UTI: In the setting of dysuria, nocturia, suprapubic discomfort and left CVA tenderness on exam, mild leukocytosis and urinalysis with positive nitrites. Remains afebrile. * UCx and BCx - negative so far. * Got 3days of antibiotics. * Resolved. Non-insulin dependent T2DM: Takes metformin 500 mg PO BID. * Hold oral hypoglycemic agents. * Accu-checks and Novolin NPO sliding scale Q6H. Chronic pain: * Tyleonol oral and naproxen 500mg TID for pain round the clock. * Administer Lidocaine patch. * Social work consult for transportation isssues and pain management referral. Opiate seeking behaviour Patient apparently moves around with his bike in streets, claims he is pain as if his bones are breaking. He was never appropriately evaluated by a pain management physician despite referrals, claims this on the transportation issues. whenever he is in pain, goes to ER - gets pain scripts and gets away with it. He was not provided with any pain medications today as this is not helping him in long run and helping him get away without going to pain mangement clinic. I tried to get a appointment with pain clinic at [facility], they declined as he is a new patient. Diet: CC3, mechanical ground & thin liquids DVT PPx: HSQ and ALPs CODE: FULL Problem List: 1. Methadone overdose 2. UTI (urinary tract infection) 3. Alcohol withdrawal 4. Metabolic encephalopathy 5. Back pain Pain Ratin Pain Location: everywhere Pain Goal: Pain 4 or less Pain Plan: naproxen tylenol Tomorrow's Labs & Rationales: NONE BEATRIS NEWTON,KHANH 08/08/16 1129: Attending MD Review Statement Attending Statement Attending MD Statement: examined this patient, discuss w/resident/PA/EDUCATIONAL AID, agreed w/resident/PA/EDUCATIONAL AID, reviewed EMR data (avail), discussed with nursing, discussed with case mgmt, amended to note Attending Assessment/Plan: Patient seen and examined. Alert and oriented 3. Not in any acute distress. No issues overnight. He is ambulating independently. He is afebrile and hemodynamically stable. Denies any dysuria. Urine cultures are negative. Patient reports that he is not on any standing dose of opioids as an outpatient as his primary care provider no longer provides him with prescriptions. He reports coming to the emergency room on and off to get prescriptions for Percocet. We did offer him a referral to the outpatient pain clinic. He did not appear interested in going to this initially. He reports taking methadone off the streets on and off for pain control. We did investment counselor him extensively on getting back into the pain management program with the possibility of being started on methadone. He agreed to give this a try. We will be discharging him on naproxen for pain control with recommendations to follow-up with the pain clinic as soon as possible. He has been advised to abstain from alcohol use and methadone that was not prescribed for him. He verbalized understanding. Antibiotic therapy has been discontinued given his negative urine culture and asymptomatic status presently.
--- NOTE | 2016-08-08 07:27 | Patient Discharge Instructions ---
Discharge Instructions General Discharge Information You were seen/treated for: methadone overdose altered mentation Watch for these problems: Any increased burining, frequency, urgency, fever, chills - please call your PCP Please take your medications regularly Special Instructions: Please follow up with your PCP in a week Please follow up with pain management clinic referral provided by your PCP. Diet Continue normal diet: Yes Recommended Diet: Diabetic Activity Full Activity/No Limits: Yes Activity Self Limited: Yes Acute Coronary Syndrome Inclusion Criteria At DC or during hospital stay patient has or had the following: ACS DIAGNOSIS No Discharge Core Measures Meds if any: Prescribed or Continued at Discharge Meds if any: NOT Prescribed or Continued at Discharge Congestive Heart Failure Inclusion Criteria At DC or during hospital stay patient has or had the following: CHF DIAGNOSIS No Discharge Core Measures Meds if any: Prescribed or Continued at Discharge Meds if any: NOT Prescribed or Continued at Discharge Cerebrovascular accident Inclusion Criteria At DC or during hospital stay patient has or had the following: CVA/TIA Diagnosis No Discharge Core Measures Meds if any: Prescribed or Continued at Discharge Meds if any: NOT Prescribed or Continued at Discharge Venous thromboembolism Inclusion Criteria VTE Diagnosis No VTE Type NONE VTE Confirmed by (Test) NONE Discharge Core Measures - Per Current guidelines, there needs to be overlap - treatment for the first 5 days of Warfarin therapy. - If discharged on Warfarin prior to 5 days of - overlap therapy, the patient will need to be - assessed for post discharge needs including - *Post discharge parental anticoagulation - *Warfarin and/or parental anticoagulation education - *Follow up date to check INR post discharge At least 5 days overlap therapy as Inpatient No Meds if any: Prescribed or Continued at Discharge Note: Overlap Therapy is Warfarin and Anticoagulant Meds if any: NOT Prescribed or Continued at Discharge
[2016-08-08] MEDS ORDERED: NAPROXEN500 M2 PO (11:54)
--- NOTE | 2016-08-08 12:24 | Cons- Psychiatry ---
Psychiatric Consult Date of Consult: 08/08/16 Reason for Consult: "Agitated, confused during nights" Ordered by Dr. Brooks Attending Dr. Zamora History of Present Illness: Identifying Info: 66-year-old male presents [facility] emergency department on 08/04/2016 with AMS status post accidental methadone overdose. CC: "I'm getting too many pills." HPI: Patient reports his has been in the hospital which has been very stressful for him. Additionally he has been calm demoralized due to his own chronic medical issues. He endorses great difficulty keeping track of his pills and worries that the doctors will prescribe him something cause an interaction. A few days ago he took some medication he does not recall which and then woke up in the hospital. He does endorse a period of confusion but feels it was due to poor prescribing practices rather than overuse. PMH: Please see the H&P for a complete listing chronic back pain, disk herniation, degen joint disease, fracture (multiple compression fractures), osteoarthritis, osteomyelitis right foot, GERD, GI BLEED , cholelithiasis, CHF, HTN, PVD Past Psych History: PTSD States previously attended PTSD groups. One previous consult psych evaluation in February 2016 Family Psych History: Unobtained Substance History Alcohol use disorder, with self reported hx of 20 year of sobriety which ended last year, detox at [facility] Opiate use disorder, reports has bought methadone off the street Former smoker Family Substance History: Did not assess Social: . One son and one daughter. Retired. 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 Current Hospital Psychotropic Medications: Med Melatonin 10 MG PO AT BEDTIME 08/07/16 2200 Allergies: Coded Allergies: ciprofloxacin (Severe, ANAPHYLAXIS 02/28/16) budesonide (Intermediate, SHORTNESS OF BREATH 02/28/16) formoterol (Intermediate, SHORTNESS OF BREATH 02/28/16) tiotropium (From SPIRIVA WITH HANDIHALER) (Intermediate, SHORTNESS OF BREATH 10/06) gabapentin (Mild, ITCHY 02/28/16) zolpidem (Intermediate, HALLUCINATIONS 02/28/16) Past History Past Medical History Neurological: peripheral neuropathy, seizure, traumatic brain injury EENT: allergies Cardiovascular: CHF, hypertension, PVD Respiratory: COPD, pulmonary embolism Gastrointestinal: GERD, GI BLEED cholelithiasis Hepatic: hepatitis C Renal: NONE Musculoskeletal: chronic back pain, disk herniation, degen joint disease, fracture (multiple compression fractures), osteoarthritis, osteomyelitis right foot Psychiatric: alcohol dependence, chronic pain disorder, PTSD Endocrine: diabetes, diabetic neuropathy Blood Disorders: PE Cancer(s): NONE 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 Past Surgical History Surgical History: hernia repair-inguinal, amputation of right great toe partial amputation of right second and third toes Psychosocial History Strengths/Capabilities: n/a Physical Limitations (Interventions): n/a Psychiatric Treatment History Psych Treatment Psychiatric Treatment Yes (as above) Diagnosis: PTSD Risk Factors: age (under 24/over 65), access to lethal means, high anxiety/ distress, poor impulse control, male Substance Use/Abuse History Drug Use/Abuse Substances Used/Abused Yes (as above) Substance Abuse Treatment Substance Abuse Treatment Past Substance Abuse [place] Yes (as above) Assessment/Plan Mental Status Mental Status Exam: Mental Status Exam Presentation/Appearance: Cooperative with evaluation. Hospital garb. Calm and pleasant on approach. Orientation: x3 Sensorium: Awake and alert Eye contact: Appropriate Affect: Somewhat blunted but congruent with stated mood Mood: Dysphoric Depression: Denies Anxiety: Denies Thought Content: - Denies SI/HI, AH/VH, PI. States and also believes they will not kill themselves. - Denies Hopeless/Helpless Thoughts Thought Process: Linear Associations: Appropriate Speech: Normal tone and rate/ Judgment: Fair Insight: Poor Cognition: Memory: Short-term deficits noted, long term care administrator grossly intact Attention/Concentration: Grossly intact Fund of Knowledge: Adequate Abstractions: Did not assess MMSE: Did nto assess Brief ROS Gait: Unsteady Sleep: Adequate Appetite: Adequate Energy: Adequate IADLs/ADLs: helps at home Patient reports she would like to return home as his has been discharged from her hospital stay. Patient declines any psychiatric interventions at this time. Lab Results: Laboratory Tests 08/08/16 0655: Anion Gap 10, Estimated GFR > 60, BUN/Creatinine Ratio 30.0 H, Magnesium 1.6 08/07/16 0620: Anion Gap 10, Estimated GFR > 60, BUN/Creatinine Ratio 21.7 08/06/16 1741: 08/06/16 1240: 08/06/16 0635: Anion Gap 9, Estimated GFR > 60, BUN/Creatinine Ratio 22.9, CBC w Diff NO MAN DIFF REQ, RBC 3.65 L, MCV 88.3, MCH 29.0, RDW 14.8 H, MPV 11.1 H, Gran % 52.6 , Lymphocytes % 34.2, Monocytes % 9.9 H, Eosinophils % 2.8, Basophils % 0.5, Absolute Granulocytes 2.7, Absolute Lymphocytes 1.8, Absolute Monocytes 0.5, Absolute Eosinophils 0.1, Absolute Basophils 0, PUBS MCHC 32.8 L Diffential Diagnosis: Opiate use disorder Alcohol use disorder Posttraumatic stress disorder Delirium due to multiple etiologies, resolved Impression: 66-year-old male presents with altered mental status. He has a significant trauma and substance abuse history. He would likely benefit from treatment for both but at present declines any psychiatric intervention. He is not an imminent threat to himself or others or gravely disabled. Provisional Treatment Plan: 1. If the patient would like to seek psychiatric care encourage him to reach out to the [place] crisis line at . Additionally if he experiences psychiatric emergency please call 911, 911, or go to the nearest emergency department. Thank you for including psychiatry in this case we are signing off.
--- NOTE | 2016-08-08 14:53 | Discharge Summary ---
Visit Information Visit Dates Admission Date: 08/05/16 Discharge Date: 08/08/16 Hospital Course Course Attending Physician: KHANH SPEAR M.D Primary Care Physician: BLAYNE NEWTON,RUDOLPH Marquez Consulting Request: Consulting Specialty: Psychiatry Consulting Physician: Mariola Reason for Consult: Agitated and confused at times during nights. Hospital Course: 66 y/o M with PMHx of non-insulin dependent T2DM, PVD s/p amputation of right first through third toes, alcohol dependence and chronic pain syndrome who is admitted with altered mental status and RYAN. Altered mental status: Likely multifactorial secondary to metabolic encephalopathy in the setting of methadone overdose, alcohol withdrawal and UTI. After admission he slept for a while and woke up next day afternoon. He reports not eating well for the past few days, felt short of breath suddenly the last he can remember followed by waking in hospital. He denies any suicidal ideation after admission, He felt agitated , at times confused during nights so psych is consulted. Recommended Haldol 2mg Q12 for agitation. Avoid Benzos, opiates, anticholinergics. Avoid delirium triggers. Prerenal RYAN Cr of 4.3 at admission from baseline 0.6. Aggressively hydrated, back to baseline in 2days. Renal ultrasound ruled out post renal causes. Hypokalemia followed by hyperkalemia -- resolved Intially Hypokalemic, repleted aggressively resulting in hyperkalemia. EKG didnt show any changes, received a single dose of calcium gluconate, insulin & dextrose followed by a litre of 1/2 NS. Resolved. K of 4.2 on the day of discharge. Lower UTI: Symptomatic with dysuria, nocturia, suprapubic discomfort and left CVA tenderness on exam, mild leukocytosis and urinalysis with positive nitrites. UCx and BCx remained negative, so received a 3 day course of IV ceftriaxone during his stay. Got better symptomatically. Non-insulin dependent T2DM: Takes metformin 500 mg PO BID - restarted at discharge. During his stay we holded his oral hypoglycemic agents. Accu-checks and Novolin NPO sliding scale Q6H. Chronic pain: Tyleonol oral and naproxen 500mg BID for pain. refused lidocaine patch. Intially supplemented with IV morphine, discontinued as he is altered at times. Social work consult placed for transportation isssues and pain management referral. Provided with Naproxen 500mg BID for pain - Cr 0.6. Opiate seeking behaviour Patient apparently moves around with his bike in streets, claims he is pain as if his bones are breaking. He was never appropriately evaluated by a pain management physician despite referrals, claims this on the transportation issues. whenever he is in pain, goes to ER - gets pain scripts and gets away with it. He was not provided with any pain medications today as this is not helping him in long run and helping him get away without going to pain mangement clinic. I tried to get a appointment with pain clinic at [facility], they declined as he is a new patient. They need records from PCP before they provide an appointment. Diet: CC3, mechanical ground & thin liquids DVT PPx: HSQ and ALPs CODE: FULL Complications: none Allergies: Coded Allergies: ciprofloxacin (Severe, ANAPHYLAXIS 02/28/16) budesonide (Intermediate, SHORTNESS OF BREATH 02/28/16) formoterol (Intermediate, SHORTNESS OF BREATH 02/28/16) tiotropium (From SPIRIVA WITH HANDIHALER) (Intermediate, SHORTNESS OF BREATH 10/06) gabapentin (Mild, ITCHY 02/28/16) zolpidem (Intermediate, HALLUCINATIONS 02/28/16) Significant Procedures: None Pertinent Lab Results: as above Disposition Summary Disposition Principal Diagnosis: Altered mentation - secondary to methadone overdose Additional Diagnosis: RYAN UTI Chronic pain Discharge Disposition: home or self care Discharge Instructions General Discharge Information Code Status: Full Code Patient's Diet: Regular diet Patient's Activity: Activity as tolerated Follow-Up Instructions/Appts: Please follow up with your PCP - rudolph Salgado MD in a week Please follow up with pain management clinic referral provided by your PCP. Medications at Discharge Discharge Medications: Stop taking the following medications: Oxycodone HCl (Roxicodone) 15 MG TABLET ORAL TWICE DAILY Qty = 10 Oxycodone HCl/Acetaminophen (Percocet 5-325 MG Tablet) 5 MG-325 MG TABLET ORAL EVERY SIX HOURS NEEDED as needed for severe pain Qty = 15 Continue taking these medications: Lisinopril (Lisinopril) 20 MG TABLET 2 Tablet ORAL DAILY Comments: NOT GIVEN IN HOSPITAL Albuterol Sulfate (Ventolin Hfa) 90 MCG HFA.AER.AD 2 PUFF Inhale through mouth as needed for ASTHMA Comments: Last Taken:NOT GIVEN IN HOSPITAL Time: Aspirin (Children's Aspirin) 81 MG TAB.CHEW 1 Tablet ORAL DAILY Comments: NOT GIVEN IN HOSPITAL Omeprazole Magnesium (Prilosec Otc) 20 MG TABLET.DR 40 Milligram ORAL DAILY Comments: NOT GIVEN IN HOSPITAL Atorvastatin Calcium (Atorvastatin Calcium) 80 MG TABLET 1 Tablet ORAL DAILY Comments: NOT GIVEN IN HOSPITAL Doxepin HCl (Doxepin HCl) 25 MG CAPSULE 1 Capsule ORAL Every night Comments: NOT GIVEN IN HOSPITAL Lidocaine (Lidoderm) 5 % ADH..PATCH 1 Patch On the skin DAILY Instructions: may wear up to 12 hours Comments: Last Taken:08/08/16 Time: 2PM Metformin HCl (Metformin HCl) 500 MG TABLET 1 Tablet ORAL TWICE DAILY Instructions: Reason to Stop at ADM: lactic acidosis Comments: NOT GIVEN IN HOSPITAL Albuterol Sulfate (Albuterol Sulfate) 2.5 MG/3 ML (0.083 %) VIAL.NEB 1 Vial Inhale Solution 4XDAILY as needed for RESPIRATORY Comments: Last Taken:08/08/16 Time: 1200PM Alendronate Sodium (Alendronate Sodium) 70 MG TABLET 1 Tablet ORAL See Instructions Instructions: HOLD in hospital: severe GERD in the morning, at least 30 minutes before the first food, beverage, or medication of the day Comments: NOT GIVEN IN HOSPITAL Emollient Combination No.92 (Lubriderm Daily Moisture) 177 ML LOTION 1 Application On the skin THREE TIMES DAILY as needed for DRY SKIN Days = 7 Comments: NOT GIVEN IN HOSPITAL Diclofenac Potassium (Diclofenac Potassium) 50 MG TABLET 1 Tablet ORAL THREE TIMES DAILY as needed for PAIN Qty = 30 Comments: Last Taken:NOT GIVEN IN HOSPITAL Time: Hydroxyzine HCl (Hydroxyzine HCl) 25 MG TABLET 1 Tablet ORAL EVERY SIX HOURS as needed for Pruritis Days = 5 Comments: NOT GIVEN IN HOSPITAL Furosemide (Furosemide) 20 MG TABLET 20 Milligram ORAL DAILY Days = 30 Instructions: Reason to Stop at ADM: dehydration Comments: Last Taken:NOT GIVEN IN HOSPITAL Time: Baclofen (Baclofen) 10 MG TABLET 1 Tablet ORAL THREE TIMES A DAY NEEDED as needed for muscle spasm/strain Qty = 30 Comments: NOT GIVEN IN HOSPITAL Start taking the following new medications: Naproxen (Naproxen) 500 MG TABLET 500 Milligram ORAL Every 12 hours as needed as needed for PAIN SCALE 6-10 Qty = 30 No Refills Comments: Last Taken: 08/08/16 Time: 6AM Copies To: BLAYNE NEWTON,RUDOLPH Marquez Attending MD Review Statement Documenting Attending: KHANH SPEAR M.D Other Findings: I have reviewed the discharge summary.
== END 2016-08-08 14:04 | DRG 917 ==
LOC: ERH 23:54 → 2NA 08-05 02:49 → ERHI 08-05 02:49 → ENRESERV 08-05 03:53 → 2NA 08-05 05:09 → ENPENDDIS 08-08 10:30 → 2NA 08-08 14:04
PROVIDERS: Internal Medicine; Pediatrics; Student in an Organized Health Care Education/Training Program; ADMIT Internal Medicine
DX: T40.3X1A Poisoning by methadone, accidental (unintentional), initial encounter (principal); G93.41 Metabolic encephalopathy; N17.9 Acute kidney failure, unspecified; E87.2 Acidosis; I50.32 Chronic diastolic (congestive) heart failure; I11.0 Hypertensive heart disease with heart failure; E11.40 Type 2 diabetes mellitus with diabetic neuropathy, unspecified; E87.5 Hyperkalemia; J44.9 Chronic obstructive pulmonary disease, unspecified; F43.10 Post-traumatic stress disorder, unspecified; F10.239 Alcohol dependence with withdrawal, unspecified; N39.0 Urinary tract infection, site not specified; G89.4 Chronic pain syndrome; R44.1 Visual hallucinations; Z87.820 Personal history of traumatic brain injury; R41.82 Altered mental status, unspecified; Y92.013 Bedroom of single-family (private) house as the place of occurrence of the external cause; Z89.421 Acquired absence of other right toe(s); Z79.84 Long term (current) use of oral hypoglycemic drugs; Z87.891 Personal history of nicotine dependence
CPT/HCPCS: 2NAP; 36415; 71100-LT; 76775; 80307; 81001; 82436; 87040; 87086; 93005; 93010; G0480; J0610; J0696; J1644; J1815; J3490; J7042

== ENCOUNTER 2017-05-03 23:04 | Emergency (ER) | payer OTHER, MEDICARE ==
[~2017-05-03] VITALS: Ht 182.9 cm; Wt 97.5 kg
[~2017-05-03 23:04] MED LIST changes: +DOXEPIN HCL10 MG PO; +KEFLEX500 M1 PO; +KEPPRA500 M1 PO; +LASIX20 M1 PO; +MELATONIN5 M7 PO; +METOPROLOL TART25 M1 PO; +MINIPRESS1 MG PO; +NAPROXEN500 M2 PO; +NORVASC10 M1 PO; +PREDNISONE20 M1 PO; +QUETIAPINE FUM100 M1 PO; +TRIAMCINOLONE A60 M1 TOP
[2017-05-03 23:34] LABS: ABSOLUTE BASOPHIL COUNT 0.1 /CUMM (0.0-0.2); ABSOLUTE EOSINOPHIL COUNT 0.5 /CUMM (0.0-0.7); ABSOLUTE GRANULOCYTE CT 3.4 /CUMM (1.4-6.5); ABSOLUTE LYMPH COUNT 2.8 /CUMM (1.2-3.4); ABSOLUTE MONOCYTE COUNT 0.6 /CUMM (0.10-0.60); BASOPHIL % 0.7 % (0.0-2.0); EOSINOPHIL % 7.5 % (0-5); GRANULOCYTE % 45.7 % (42.2-75.2); HEMATOCRIT 32.4 % (42-52); MEAN CORPUSCULAR HGB 26.7 PG (27.0-31.0); MEAN CORPUSCULAR HGB CONC 31.8 G/DL (33.0-37.0); MEAN CORPUSCULAR VOLUME 84.1 FL (80.0-94.0); MEAN PLATELET VOLUME 10.4 FL (7.4-10.4); PLATELET COUNT 244 /CUMM (130-400); RBC DISTRIBUTION WIDTH 12.5 % (11.5-14.5); RED BLOOD CELL CT 3.86 /CUMM (4.70-6.10); WHITE BLOOD CELL COUNT 7.3 /CUMM (4.8-10.8)
--- NOTE | 2017-05-03 23:42 | ED DYSPNEA/ASTHMA COMPLAINT ---
History of Present Illness General Chief Complaint: Wheezing/Asthma Stated Complaint: BIBA WITH ASTHMA Source: patient, old records, EMS, W10 Exam Limitations: no limitations Vital Signs & Intake/Output Vital Signs & Intake/Output Vital Signs Date Time Temp Pulse Resp B/P B/P Pulse O2 O2 Flow FiO2 Mean Ox Delivery Rate 05/04 0500 97.0 90 20 118/67 93 Room Air 05/04 0328 97 Nasal 2.0L Cannula 05/04 0100 98.6 75 18 120/68 98 Nasal 4.0L Cannula 05/03 231 98 Nasal 3.0L Cannula 05/03 2312 98.7 78 24 122/71 100 Non 100% ReBreather ED Intake and Output 05/04 0000 05/03 1200 Intake Total Output Total Balance Patient 215 lb Weight Allergies Coded Allergies: ciprofloxacin (Severe, ANAPHYLAXIS 02/28/16) budesonide (Intermediate, SHORTNESS OF BREATH 02/28/16) formoterol (Intermediate, SHORTNESS OF BREATH 02/28/16) tiotropium (From SPIRIVA WITH HANDIHALER) (Intermediate, SHORTNESS OF BREATH 10/06) gabapentin (Mild, ITCHY 02/28/16) zolpidem (Intermediate, HALLUCINATIONS 02/28/16) Reconcile Medications Aspirin (Children's Aspirin) 81 MG TAB.CHEW 1 TAB PO DAILY HEART HEALTH ( Reported) Atorvastatin Calcium 80 MG TABLET 1 TAB PO DAILY CHOLESTEROL (Reported) Furosemide (Lasix) 20 MG TABLET 1 TAB PO DAILY CHF . Gabapentin (Neurontin) 400 MG CAPSULE 1 CAP PO TID NEUROPATHY (Reported) Lisinopril 20 MG TABLET 2.5 MG PO DAILY BP (Reported) Loratadine (Claritin) 10 MG TABLET 1 TAB PO DAILY CONGESTION (Reported) Metformin HCl 500 MG TABLET 1 TAB PO DAILY DIABETES (Reported) Multiple Vitamin (Multivitamins) 1 EACH TABLET 1 TAB PO DAILY VITAMIN ( Reported) Omeprazole Magnesium (Prilosec Otc) 20 MG TABLET.DR 40 MG PO DAILY ACID REFLUX (Reported) Risperidone (Risperdal) 2 MG TABLET 1 TAB PO QPM SLEEP (Reported) Tiotropium [place] (Spiriva) 18 MCG CAP.W.DEV 1 CAP INH DAILY ASTHMA ( Reported) Tramadol HCl (Ultram) 50 MG TABLET 1 TAB PO Q8H PRN PAIN (Reported) Core Measure Meds Pre-Hospital aspirin Triage Note: PER PT FROM [facility] WITH FEW DAY HX OF "FEELING LOUSY" AND SOB, PER PT EVEN IF I WAS HOT THEY DON'T CHECK MY TEMP UPONM EMS ARRIVAL, SATS 94 RA WITH INSP EXP WHEEZES. Triage Nurses Notes Reviewed? yes Onset: Afternoon Duration: hour(s):, constant, continues in ED Timing: recent history Severity: moderate, severe Prior Episodes/Possible Cause: frequent episodes Associated Symptoms: cough, chest pain, wheezing HPI: 6 hours prior to admission patient complains of increased work of breathing with wheezing productive cough of yellow brown sputum with chest tightness. He denies fever chills nausea vomiting diarrhea headache dysuria rash bleeding. Past History Travel History Traveled to [place] past 21 day No Medical History Any Pertinent Medical History? see below for history Neurological: peripheral neuropathy, seizure, traumatic brain injury EENT: allergies Cardiovascular: CHF, hypertension, PVD Respiratory: COPD, pulmonary embolism Gastrointestinal: GERD, upper GI bleed, GI BLEED Hepatic: cholelithiasis, hepatitis C Renal: NONE Musculoskeletal: chronic back pain, disk herniation, degen joint disease, fracture (multiple compression fractures), osteoarthritis, osteomyelitis right foot Psychiatric: alcohol dependence, chronic pain disorder, substance abuse, PTSD Endocrine: diabetes Blood Disorders: PE Cancer(s): NONE MANAGING JEWELER/Reproductive: NONE Other Medical Hx: malaria History of MRSA: Yes History of VRE: No History of CDIFF: No Influenza Vaccine: 12/23/15 Surgical History Surgical History: hernia repair-inguinal, amputation of right great toe partial amputation of right second and third toes Psychosocial History Who do you live with Patient/Self Services at Home None What is your primary language Bulgarian Tobacco Use: Quit >30 days ago Family History Family History, If Any: FATHER (father). Relation not specified for: FH: prostate cancer Hx Contributory? No Review of Systems Review of Systems Constitutional: Reports: no symptoms. EENTM: Reports: no symptoms, see HPI, nasal congestion. Respiratory: Reports: see HPI, cough, short of breath, sputum production, wheezing. Cardiovascular: Reports: see HPI, chest pain. GI: Reports: no symptoms. Genitourinary: Reports: no symptoms. Musculoskeletal: Reports: no symptoms. Skin: Reports: no symptoms. Neurological/Psychological: Reports: no symptoms. Hematologic/Endocrine: Reports: no symptoms. Immunologic/Allergic: Reports: no symptoms. All Other Systems: Reviewed and Negative Physical Exam Physical Exam General Appearance: well developed/nourished, alert, awake, anxious, moderate distress, obese Head: atraumatic, normal appearance Eyes: Bilateral: normal appearance, PERRL, EOMI. Ears, Nose, Throat: normal pharynx, normal ENT inspection, hearing grossly normal Neck: normal inspection, supple, full range of motion, no midline tenderness Respiratory: chest non-tender, decreased breath sounds, rhonchi, wheezing, respiratory distress Cardiovascular: regular rate/rhythm, normal peripheral pulses, norml femoral pulses equa Peripheral Pulses: 4+ carotid (R), 4+ carotid (L) Gastrointestinal: normal bowel sounds, soft, non-tender, no organomegaly Extremities: normal inspection, normal capillary refill, normal range of motion, no edema Neurologic/Psych: no motor/sensory deficits, awake, alert, oriented x 3, normal gait, normal mood/affect, advertising inserter II-XII nml as tested Skin: intact, normal color, warm/dry Lymphatic: no anterior cervical hill Core Measures ACS in differential dx? No CVA/TIA Diagnosis No Sepsis Present: No Sepsis Focused Exam Completed? No Progress Differential Diagnosis: asthma, CHF, COPD, pneumonia Plan of Care: Orders Procedure Date/time Status RAPID VIRAL INFLUENZA A 05/03 2337 Complete TROPONIN LEVEL 05/03 2317 Complete MAGNESIUM 05/03 2317 Complete COMPREHENSIVE METABOLIC PANEL 05/03 2317 Complete CBC WITHOUT DIFFERENTIAL 05/03 2317 Complete EKG 05/03 2317 Active Laboratory Tests 05/03/17 2327: Anion Gap 11, Estimated GFR > 60, BUN/Creatinine Ratio 26.0 H, Glucose 91, Calcium 10.0, Magnesium 1.4 L, Total Bilirubin 0.2, AST 25, ALT 49, Alkaline Phosphatase 68, Troponin I < 0.01, Total Protein 7.0, Albumin 4.1, Globulin 2.9, Albumin/Globulin Ratio 1.4, CBC w Diff NO MAN DIFF REQ, RBC 3.86 L, MCV 84.1, MCH 26.7 L, MCHC 31.8 L, RDW 12.5, MPV 10.4, Gran % 45.7, Lymphocytes % 37.7, Monocytes % 8.4, Eosinophils % 7.5 H, Basophils % 0.7, Absolute Granulocytes 3.4, Absolute Lymphocytes 2.8, Absolute Monocytes 0.6, Absolute Eosinophils 0.5, Absolute Basophils 0.1 Microbiology 05/03 9453 NASOPHARYN: Influenza Virus A & B Rapid Smear - COMP Diagnostic Imaging: Viewed by Me: Radiology Read. Discussed w/RAD: Radiology Read. CXR Impression: no acute abnormality, no infiltrates Initial ED EKG: normal axis, normal intervals, normal p-waves, normal QRS complex, normal sinus rhythm, no ST T wave changes Prior EKG: unchanged Rhythm Strip: normal sinus rhythm Departure Departure Time of Disposition: 050 Disposition: ACUTE REHAB FACILITY Condition: Stable Clinical Impression Primary Impression: COPD with exacerbation Referrals: Howie Lopez MD (PCP/Family) Departure Forms: Customer Survey General Discharge Information Critical Care Note Critical Care Note Critical Care Time: non-applicable
--- NOTE | 2017-05-04 00:51 | RADIOLOGY REPORT ---
EXAMINATION: XR PORTABLE CHEST CLINICAL INFORMATION: Productive cough, history of COPD COMPARISON: 12/19/2016 TECHNIQUE: Portable frontal view of the chest was obtained. FINDINGS: Lung volumes are symmetric. No focal consolidation is seen. No evidence of pneumothorax, pleural effusion, or pulmonary edema. The cardiomediastinal contour is unremarkable. No acute osseous findings are seen. IMPRESSION: No acute cardiopulmonary findings.
[2017-05-04] MEDS ORDERED: CLARITIN10 M1 PO (02:26)
[2017-05-04] MEDS ORDERED: NEURONTIN400 M1 PO (02:26)
[2017-05-04] MEDS ORDERED: RISPERDAL2 M1 PO (02:27)
[2017-05-04] MEDS ORDERED: SPIRIVA18 MCG INH (02:28)
[2017-05-04] MEDS ORDERED: ULTRAM50 M1 PO (02:29)
[2017-05-04] MEDS ORDERED: MULTIVITAMINS1 EAC9 PO (02:29)
[2017-05-04 08:03] VITALS: BP 122/72
== END 2017-05-04 08:06 ==
LOC: ERH 23:04
PROVIDERS: Emergency Medicine
DX: J44.1 Chronic obstructive pulmonary disease with (acute) exacerbation (principal); R07.89 Other chest pain; Z87.891 Personal history of nicotine dependence
CPT/HCPCS: 1263; 71045; 87804; 87804-59; 93005; 93010; 96374; J2930